=== PATIENT | male | born 1945 | race Caucasian/White ===

== ENCOUNTER 2022-07-22 10:14 | Inpatient (IN) | payer MEDICARE ==
[~2022-07-22] VITALS: Ht 182.8 cm; Wt 56.2 kg
[2022-07-22] MEDS ORDERED: RT-ALBUTEROL SULF 2.5 MG/3 ML PRE-MIX VIAL INH STA (10:25)
[2022-07-22] MEDS ORDERED: NITRO DRIP 25000 MCG/D5W 250 ML IV STA (10:25)
--- NOTE | 2022-07-22 10:35 | Diagnostic Imaging Report ---
INDICATION: Shortness of breath. Frontal chest obtained at 10:28 a.m. FINDINGS: Heart is mildly enlarged. There is central vascular congestion with diffuse interstitial edema and patchy alveolar infiltrates, right greater than left. There appears to be a minimal trace of pleural fluid on both sides. There is no pneumothorax. IMPRESSION: Cardiomegaly and central vascular congestion with interstitial edema compatible with CHF, with some patchy bibasilar alveolar infiltrates right greater than left, superimposed pneumonia not excluded. There is a trace of pleural fluid on both sides. Dictated by: Dictated on workstation # [id number]
[2022-07-22 10:45] LABS: BASOPHILS % (AUTO) 0 % (0-10); EOSINOPHILS % (AUTO) 0 % (0-10); HEMATOCRIT 46 % (40-54); HEMOGLOBIN 14.5 g/dL (13.3-17.7); LYMPHOCYTES # (AUTO) 2.6 10^3/uL (1.0-4.0); LYMPHOCYTES % (AUTO) 22 % (12-44); MEAN CORPUSCULAR HEMOGLOBIN 32 pg (25-34); MEAN CORPUSCULAR HGB CONC 32 g/dL (32-36); MEAN CORPUSCULAR VOLUME 100 fL (80-99); MEAN PLATELET VOLUME 10.5 fL (9.0-12.2); MONOCYTES # (AUTO) 0.7 10^3/uL (0.0-1.0); MONOCYTES % (AUTO) 6 % (0-12); NEUTROPHILS # (AUTO) 8.4 10^3/uL (1.8-7.8); NEUTROPHILS % (AUTO) 71 % (42-75); PLATELET COUNT 174 10^3/uL (130-400); WHITE BLOOD COUNT 11.7 10^3/uL (4.3-11.0)
[2022-07-22 10:46] LABS: ABG BASE EXCESS -2.7 MMOL/L (-2.5-2.5); ABG OXYGEN SATURATION 100 % (94-100); ABG PO2 405 MMHG (79-93); ABG TCO2 29.7 MMOL/L (21.0-31.0)
--- NOTE | 2022-07-22 10:46 | ED Dyspnea ---
General Stated Complaint: SOB Source of Information: Patient, EMS Exam Limitations: Other (clinical condition of severe dyspnea) History of Present Illness Date Seen by Provider: Jul 22, 2022 Time Seen by Provider: 10:14 Initial Comments 76-year-old male presenting with shortness of breath. He has been having difficulty breathing for several days. EMS was activated this morning because he was having increased trouble breathing. He had denied any fever or chills. He was only able to speak and 1-2 word sentences. He also was very hypertensive when EMS picked him up. His initial blood pressure was 220/150. He denies any allergies to medicines. He admits to having COPD. He states he does not want to be intubated. Severity: Severe Associated Symptoms: Chest Pain, Cough, Edema, Fever, Pain, Weakness, Wheezing Allergies and Home Medications Allergies Coded Allergies: No Known Drug Allergies (Unverified , 07/22/22) Patient Home Medication List Home Medication List Reviewed: Yes Review of Systems Review of Systems Constitutional: see HPI Respiratory: cough, short of breath Cardiovascular: No chest pain Unable to obtain full ROS due to patient's condition and severe respiratory distress Past Hiwzdpy-Pnokzs-Uqwihd Hx Past Medical History Surgery/Hospitalization HX: COPD Physical Exam Vital Signs Vital Signs - First Documented 07/22/22 10:20 Temp 35.7 Pulse 112 Resp 24 B/P (MAP) 192/130 (150) Pulse Ox 100 O2 Delivery NIV CPAP Capillary Refill : Height, Weight, BMI Height: '" Weight: lbs. oz. kg; BMI Method: General Appearance: Anxious, Chronically ill, Moderate Distress (working hard to breath) HEENT: PERRL/EOMI, Moist Mucous Membranes Neck: Non Tender, Supple Respiratory: Chest Non Tender, Accessory Muscle Use, Decreased Breath Sounds (especially in the bases), Respiratory Distress; No Stridor Cardiovascular: Normal Peripheral Pulses, Tachycardia Gastrointestinal: Normal Bowel Sounds, No Pulsatile Mass, Non Tender, Soft Rectal: Deferred Extremity: Normal Capillary Refill, Normal Inspection, No Pedal Edema Neurologic/Psychiatric: Alert Skin: Warm/Dry, Pallor Focused Exam Lactate Level 07/22/22 10:30: Lactic Acid Level 3.14*H Lactic Acid Level Laboratory Tests Test 07/22/22 10:30 Lactic Acid Level 3.14 MMOL/L (0.50-2.00) *H Progress/Results/Core Measures Results/Orders Lab Results Laboratory Tests Test 07/22/22 10:23 07/22/22 10:30 07/22/22 10:36 07/22/22 10:49 Range/Units Blood Gas Puncture Site L RADIAL Blood Gas Patient Temperature 35.7 Arterial Blood pH 7.17 *L 7.37-7.43 Arterial Blood Partial Pressure CO2 75 *H 35-45 MMHG Arterial Blood Partial Pressure O2 405 H 79-93 MMHG Arterial Blood HCO3 27 23-27 MMOL/L Arterial Blood Total CO2 29.7 21.0-31.0 MMOL/L Arterial Blood Oxygen Saturation 100 94-100 % Arterial Blood Base Excess -2.7 L -2.5-2.5 MMOL/L Nicho Test NA Blood Gas Ventilator Setting NO Blood Gas Inspired Oxygen 100% BIPAP White Blood Count 11.7 H 4.3-11.0 10^3/uL Red Blood Count 4.59 4.30-5.52 10^6/uL Hemoglobin 14.5 13.3-17.7 g/dL Hematocrit 46 40-54 % Mean Corpuscular Volume 100 H 80-99 fL Mean Corpuscular Hemoglobin 32 25-34 pg Mean Corpuscular Hemoglobin Concent 32 32-36 g/dL Red Cell Distribution Width 14.6 H 10.0-14.5 % Platelet Count 174 130-400 10^3/uL Mean Platelet Volume 10.5 9.0-12.2 fL Immature Granulocyte % (Auto) 1 % Neutrophils (%) (Auto) 71 42-75 % Lymphocytes (%) (Auto) 22 12-44 % Monocytes (%) (Auto) 6 0-12 % Eosinophils (%) (Auto) 0 0-10 % Basophils (%) (Auto) 0 0-10 % Neutrophils # (Auto) 8.4 H 1.8-7.8 10^3/uL Lymphocytes # (Auto) 2.6 1.0-4.0 10^3/uL Monocytes # (Auto) 0.7 0.0-1.0 10^3/uL Eosinophils # (Auto) 0.0 0.0-0.3 10^3/uL Basophils # (Auto) 0.0 0.0-0.1 10^3/uL Immature Granulocyte # (Auto) 0.1 0.0-0.1 10^3/uL Sodium Level 137 135-145 MMOL/L Potassium Level 4.8 3.6-5.0 MMOL/L Chloride Level 102 98-107 MMOL/L Carbon Dioxide Level 25 21-32 MMOL/L Anion Gap 10 5-14 MMOL/L Blood Urea Nitrogen 19 H 7-18 MG/DL Creatinine 1.58 H 0.60-1.30 MG/DL Estimat Glomerular Filtration Rate 45 BUN/Creatinine Ratio 12 Glucose Level 196 H 70-105 MG/DL Lactic Acid Level 3.14 *H 0.50-2.00 MMOL/L Calcium Level 8.5 8.5-10.1 MG/DL Corrected Calcium 8.7 8.5-10.1 MG/DL Magnesium Level 2.3 1.6-2.4 MG/DL Total Bilirubin 0.5 0.1-1.0 MG/DL Aspartate Amino Transf (AST/SGOT) 53 H 5-34 U/L Alanine Aminotransferase (ALT/SGPT) 30 0-55 U/L Alkaline Phosphatase 253 H 40-136 U/L Troponin I < 0.30 <0.30 NG/ML C-Reactive Protein 0.87 H <0.50 MG/DL Pro-B-Type Natriuretic Peptide 40379.0 H <450.0 PG/ML Total Protein 6.5 6.4-8.2 GM/DL Albumin 3.7 3.2-4.5 GM/DL Influenza Type A (RT-PCR) Not Detected Not Detecte Influenza Type B (RT-PCR) Not Detected Not Detecte SARS-CoV-2 RNA (RT-PCR) Not Detected Not Detecte Urine Color YELLOW Urine Clarity CLEAR Urine pH 6.0 5-9 Urine Specific [place] 1.020 1.016-1.022 Urine Protein NEGATIVE NEGATIVE Urine Glucose (UA) NEGATIVE NEGATIVE Urine Ketones NEGATIVE NEGATIVE Urine Nitrite NEGATIVE NEGATIVE Urine Bilirubin NEGATIVE NEGATIVE Urine Urobilinogen 0.2 < = 1.0 MG/DL Urine Leukocyte Esterase NEGATIVE NEGATIVE Urine RBC (Auto) NEGATIVE NEGATIVE Urine RBC NONE /HPF Urine WBC RARE /HPF Urine Squamous Epithelial Cells 5-10 /HPF Urine Crystals NONE /LPF Urine Bacteria NEGATIVE /HPF Urine Casts NONE /LPF Urine Mucus NEGATIVE /LPF Urine Culture Indicated NO My Orders Orders - NICHOLE DUMONT MD Cbc With Automated Diff (07/22/22 10:22) Comprehensive Metabolic Panel (07/22/22 10:22) Blood Culture (07/22/22 10:22) Chest 1 View Ap/Pa Only (07/22/22 10:22) Magnesium (07/22/22 10:22) Ekg Tracing (07/22/22 10:22) O2 (07/22/22 10:22) Ed Iv/Invasive Line Start (07/22/22 10:22) Sputum Culture (07/22/22 10:22) Monitor-Rhythm Ecg Trace Only (07/22/22 10:22) Crp Fs (07/22/22 10:22) Lactic Acid Analyzer (07/22/22 10:22) Arterial Blood Gas (07/22/22 10:23) Troponin I Fs (07/22/22 10:23) Probnp Fs (07/22/22 10:23) Covid 19 Inhouse Test (07/22/22 10:23) Influenza A And B By Pcr (07/22/22 10:23) Isolation Central Supply Req (07/22/22 10:23) Albuterol Pre-Mix Nebs (Rt) (Proventil (07/22/22 10:25) Svn Small Volume Nebulizer (07/22/22 10:25) Nitro Drip 09805 Mcg/D5w (Nitroglycerin (07/22/22 10:25) Furosemide Injection (Lasix Injection) (07/22/22 10:53) Ua Culture If Indicated (07/22/22 10:54) Ricketts Cath (07/22/22 10:54) End Tidal Co2 (07/22/22 11:11) Vital Signs/I&O 07/22/22 07/22/22 10:20 10:45 Temp 35.7 Pulse 112 100 Resp 24 B/P (MAP) 192/130 (150) 175/119 Pulse Ox 100 O2 Delivery NIV CPAP Progress Progress Note #1: Progress Note obtain labs, ABG, ECG, CXR, Cardiac Enzymes, Covid swab, Influenza Swab. Repeat albuterol treatment to see if it helps his breathing. Continue with CPAP from EMS. He was given Solumedrol 125 mg IV in addition to a Duoneb and Albuterol treatment prior to arrival. Will replace the ntg paste with nitroglycerin drip. Differential diagnosis includes acute heart failure, COPD exacerbation, pneumonia, COVID, acute myocardial infarction Progress Note #2: Time: 10:47 Progress Note 1047 lab called to say his blood gas showed a pH of 7.17, PCO2 of 75, PO2 of 405. The rest of the results will be put in the computer. 1101 Lactic acid 3.14 which is likely due to hyperventilation and respiratory distress rather than infection. Chest xray shows cardiomegaly with pulmonary edema and signs for CHF. Added Lasix 80 mg IV x 1 to try and help patient diurese and see if it helps his breathing. 1107 clarified with patient that he is DNR/DNI. He follows with Dr. Osborne and uses [facility] for prescriptions. He continues to deny heart problems or heart failure in the past. He has had HTN and takes meds for that. Oxygen decreased from 100% to 60 % with his BiPAP since his pO2 was 405 on ABG. Progress Note #3: Time: 11:18 Progress Note Labs show mild elevation white blood cell count to 11.7 on CBC. Chemistry has elevated BUN 19 and creatinine 1.58. Glucose is elevated to 196 but patient has been having respiratory distress and did get Solu-Medrol 125 mg IV. Troponin is negative at less than 0.3. proBNP is elevated to 34,046. Page sent to Dr. Gonzalez with [facility] about trying to admit the patient to the ICU. 1133 d/w Dr. Gonzalez about patient and will admit to ICU. Continue with nitroglycerin drip for blood pressure and to help with diuresis. Monitor urine output with ricketts catheter that was placed here in ED. He is improved from when he arrived in the ED. Will titrate oxygen down to 40% on his BiPap as he is still at 100% on 60%. Initial ECG Impression Date: Jul 22, 2022 Initial ECG Impression Time: 10:18 Initial ECG Rate: 110 Initial ECG Rhythm: S.Tach Initial ECG Comparisson: No Previous ECG Available Comment Sinus tachycardia with a heart rate of 110 bpm. NH interval [address] elevation. There is a nonspecific intraventricular conduction delay. Q waves present in leads II, 3, aVF, V2 through V6. QT interval 348 ms with a QTc interval 413 ms. There is no prior tracing immediately available for [facility]. Diagnostic Imaging Diagonstic Imaging: Xray Plain Films/CT/US/NM/MRI: chest Comments NAME: JUDIT SMALLWOOD MED REC#: [id number] PT STATUS: REG ER : 1945 PHYSICIAN: NICHOLE DUMONT MD ADMIT DATE: 07/22/22/ER FS Draft Date of Exam:07/22/22 CHEST 1 VIEW AP/PA ONLY INDICATION: Shortness of breath. Frontal chest obtained at 10:28 a.m. FINDINGS: Heart is mildly enlarged. There is central vascular congestion with diffuse interstitial edema and patchy alveolar infiltrates, right greater than left. There appears to be a minimal trace of pleural fluid on both sides. There is no pneumothorax. IMPRESSION: Cardiomegaly and central vascular congestion with interstitial edema compatible with CHF, with some patchy bibasilar alveolar infiltrates right greater than left, superimposed pneumonia not excluded. There is a trace of pleural fluid on both sides. Dictated on workstation # [id number] Dict: 07/22/22 1033 Trans: 07/22/22 1035 [id number] Interpreted by: WICHO NG MD Electronically signed by: Reviewed: Reviewed by Ak Critical Care Note Critical Care Total Time (minutes) 60 minutes Progress 60 minutes of critical care time was spent in direct care of the patient. This excludes separately billable procedures. Time was spent obtaining history from patient and EMS, ordering tests and reviewing results, ordering interventions and reviewing response, discussion with consultants, documentation in the chart. Patient was at risk of respiratory failure with his respiratory distress and required my constant immediate care. Departure Communication (Admissions) Time/Spoke to Admitting Phy: 11:[address] Gonzalez and she accepted patient for ICU admission. We will continue with nitroglycerin drip and BiPAP. Impression Primary Impression: Acute exacerbation of chronic obstructive pulmonary disease (COPD) Additional Impressions: Hypertensive urgency Congestive heart failure Qualified Codes: I50.9 - Heart failure, unspecified Respiratory failure with hypercapnia Qualified Codes: J96.22 - Acute and chronic respiratory failure with hypercapnia Disposition: 30 STILL A PATIENT Condition: Critical Admissions Decision to Admit Reason: Admit from ER (General) Decision to Admit/Date: Jul 22, 2022 Time/Decision to Admit Time: 11:33 Departure-Patient Inst. Referrals: NO,LOCAL PHYSICIAN (PCP/Family) Primary Care Physician NICHOLE DUMONT MD Jul 22, 2022 10:46
[2022-07-22 10:47] LABS: INSPIRED O2 100% BIPAP; PATIENT TEMP 35.7; VENTILATOR NO
[2022-07-22 10:48] LABS: ABG PCO2 75 MMHG (35-45)
[2022-07-22 10:49] LABS: ABG PH 7.17 (7.37-7.43)
[2022-07-22] MEDS ORDERED: FUROSEMIDE 40 MG/4 ML INJ (LASIX) IVP STA (10:53)
[2022-07-22 11:00] LABS: BILIRUBIN,URINE NEGATIVE (NEGATIVE); COLOR,URINE YELLOW; GLUCOSE, URINE (UA) NEGATIVE (NEGATIVE); KETONES,URINE NEGATIVE (NEGATIVE); LEUKOCYTE ESTERASE ,URINE NEGATIVE (NEGATIVE); NITRITE,URINE NEGATIVE (NEGATIVE); PROTEIN,URINE NEGATIVE (NEGATIVE)
[2022-07-22 11:09] LABS: BACTERIA,URINE NEGATIVE /HPF; WBC,URINE RARE /HPF
[2022-07-22 11:10] LABS: CLARITY,URINE CLEAR
[2022-07-22 11:14] LABS: CARBON DIOXIDE 25 MMOL/L (21-32); CHLORIDE 102 MMOL/L (98-107); POTASSIUM 4.8 MMOL/L (3.6-5.0); SODIUM 137 MMOL/L (135-145)
[2022-07-22 11:15] LABS: ALANINE AMINOTRANSFERASE 30 U/L (0-55); ALBUMIN 3.7 GM/DL (3.2-4.5); ALKALINE PHOSPHATASE 253 U/L (40-136); BILIRUBIN,TOTAL 0.5 MG/DL (0.1-1.0); BUN/CREATININE RATIO 12; CALCIUM 8.5 MG/DL (8.5-10.1); CREATININE SERUM 1.58 MG/DL (0.60-1.30); GFR ESTIMATED 45; GLUCOSE 196 MG/DL (70-105); MAGNESIUM 2.3 MG/DL (1.6-2.4); TOTAL PROTEIN 6.5 GM/DL (6.4-8.2)
[2022-07-22] MEDS ORDERED: NITRO DRIP 25000 MCG/D5W 250 ML IV SCH (13:15)
[2022-07-22] MEDS ORDERED: CATHETER FLUSH 10 ML SYR IVP PRN (13:15)
[2022-07-22 13:38] VITALS: BP 192/130
[2022-07-22] MEDS ORDERED: RT-ALBUTEROL/IPRATROPIUM 3 ML (DUONEB) VIAL INH PRN (14:00)
--- NOTE | 2022-07-22 14:13 | Tele-ICU Consult ---
History of Present Illness History of Present Illness Date Seen by Provider: Jul 22, 2022 Time Seen by Provider: 14:13 Date of Admission (Tele-ICU Physician , consultation) Available chart/ vitals / labs / Images reviewed H&P is from ER notes Patient's information available about PMH, Shx, Fhx allergy reviewed inEMR. ROS as per chart and RN report Now in ICU, hemodynamically stable Video assessment done using teleICU camera, rest of exam as per RN Discussed with RN. Consultants: Hospital course: A/P Acute resp failure with hypercapneic and hypoxic - most likely due to pulm edema +/- AECOPD - was placed on NIPPV in ER - now ion o2 after transfer - AAO, answering questions - will follow with ABG - check ddimer -diuresis , BP control , br dilators HTN urgency/ emergency ( with acute end-organ damage - pulm edema - on presentation BP 220/150 ( MAP > 150 - BP already decreased 10- 20% in ER , -will plan further 10% in next 24H ( next few hours target BP of <180/<120 mmHg , by tomorrow decrease 25% from presentation goal and <160/<110 mmHg - cont NTG gtt Hypoxia - with CHF - ? br spam - as per bedside team exam Leukocytosis - can not r/o infection given CXR and infiltrates - sputum cx to obtain , check PCT - ( neg covid and flu ) VAHID/ ? CKD - follow Elevated lactate does not correlates with sepsis - will follow with improving oxygentaion and BP - no IVF ( lasix 80 given ) as per ER notes - He states he does not want to be intubated., DNR/DNI. Lines : , (Central Line Necessity Reviewed) Ramachandran: OG: Nutrition: Analgesia: Anxiety/ delirium VTE Prophylaxis: gustavo 30 Stress Ulcer Prophylaxis: Plans in collaboration with bedside consultants and IM MDs. Discussed with RN to reach out if any questions or concerns A total of 33 minutes of critical care time was devoted to this patient today, required to treat and/or prevent further deterioration of critical care condition ( as above ) . Allergies and Home Medications Allergies Coded Allergies: No Known Drug Allergies (Unverified , 07/22/22) Past Medical/Social/Family Hx Patient Social History Tobacco Use?: No Substance use?: No Alcohol Use?: No Pt stated abuse/neglect: No Current Status Advance Directives: No Communicates: Verbally Primary Language: Estonian Preferred Spoken Language: Estonian Is interpretation needed?: No Sensory deficits: Hearing impairment Review of Systems Constitutional: see HPI Focused Exam Lactate Level 07/22/22 10:30: Lactic Acid Level 3.14*H Height, Weight, BMI Height: '" Weight: lbs. oz. kg; 20.34 BMI Method: Lactic Acid Level Laboratory Tests Test 07/22/22 10:30 Lactic Acid Level 3.14 MMOL/L (0.50-2.00) *H Exam Exam Patient acknowledged, consented, and participated in this virtual visit which was conducted using real time audio/video Vital Signs Date Time Temp Pulse Resp B/P (MAP) Pulse Ox O2 Delivery O2 Flow Rate FiO2 07/22/22 13:38 35.7 112 100 100 07/22/22 13:25 81 07/22/22 12:20 92 19 177/109 100 Room Air 07/22/22 10:45 100 175/119 07/22/22 10:25 100 NIV Bilevel 100 07/22/22 10:20 35.7 112 24 192/130 (150) 100 NIV CPAP Height & Weight Height: '" Weight: lbs. oz. kg; 20.34 BMI Method: General Appearance: No Apparent Distress, Anxious, Chronically ill, Moderate Distress (working hard to breath) HEENT: PERRL/EOMI, Moist Mucous Membranes Neck: Non Tender, Supple Respiratory: Chest Non Tender, Accessory Muscle Use, Decreased Breath Sounds (especially in the bases), Respiratory Distress; No Stridor Cardiovascular: Normal Peripheral Pulses, Tachycardia Capillary Refill: Less Than 3 Seconds Extremity: Normal Capillary Refill, Normal Inspection, No Pedal Edema Neurologic/Psychiatric: Alert Skin: Warm/Dry, Pallor Results Lab Laboratory Tests 07/22/22 10:30 Assessment/Plan Assessment/Plan 1 KAY CHAVIRA MD Jul 22, 2022 14:13
[2022-07-22 14:35] LABS: POTASSIUM 4.5 MMOL/L (3.6-5.0)
[2022-07-22 14:36] LABS: CALCIUM 8.4 MG/DL (8.5-10.1)
[2022-07-22 14:41] LABS: CREATININE SERUM 1.79 MG/DL (0.60-1.30)
[2022-07-22 14:50] LABS: FIBRIN DEGRADATION PRODUCTS 5.15 UG/ML (0.00-0.49)
[2022-07-22] MEDS: CATHETER FLUSH 10 ML SYR IVP SCH ×2 (15:00→22:00)
[2022-07-22 15:11] LABS: ABG BASE EXCESS 2.6 MMOL/L (-2.5-2.5); ABG OXYGEN SATURATION 91 % (94-100); ABG PCO2 49 MMHG (35-45); ABG PH 7.37 (7.37-7.43); ABG PO2 57 MMHG (79-93)
[2022-07-22 15:14] LABS: ALLENS TEST POSITIVE; PATIENT TEMP 36.8; VENTILATOR NO
[2022-07-22] MEDS: ENOXAPARIN 40 MG/0.4 ML (LOVENOX) SYR SC SCH ×2 (16:49→17:00)
[2022-07-22] MEDS ORDERED: RT-ALBUTEROL/IPRATROPIUM 3 ML (DUONEB) VIAL INH SCH (18:00)
[2022-07-22] MEDS: RT-ALBUTEROL/IPRATROPIUM 3 ML (DUONEB) VIAL INH SCH ×2 (19:09→22:52)
--- NOTE | 2022-07-22 21:03 | History & Physical ---
VIRIDIANA ORTEGA 07/22/223: HPI History of Present Illness: Patient admitted for respiratory failure with hypercapnia and hypertensive emergency after arriving to the ER around 10:30am with severe shortness of musa th. Since initiation of furosemide around 11:00 am, he is breathing significantly easier and is in much less distress. He reports that he could "barely talk" on arrival at the ER due to difficultly breathing, and now can sustain a full conversation. He denies chest pain, headache, dizziness, sensation abnormalities, GI disturbances, and changes in vision and hearing. He is pleasant natured and engaged, but does have trouble remembering today's events and certain longer term information (family medical history, for example). Attending Physician Cristhian Osborne MD PCP Admitting Physician: Solo Jean-Baptiste MD Attending Physician: Solo Jean-Baptiste MD Consult Date of Admission Jul 22, 2022 at 12:52 Home Medications Home Medications Reviewed patient Home Medication Reconciliation performed by pharmacy medication reconciliations it telecom technician and/or nursing. Patients Allergies have been reviewed. Allergies Coded Allergies: No Known Drug Allergies (Unverified , 07/22/22) AEV-Hvhfvu-Yucyyd Hx Patient Social History Smoking Status: Former Smoker Alcohol Use?: No Have you traveled recently?: No Reviewed Test Results Reviewed Test Results Radiology CXR showed done at 11:00 am at the ER showed cardiomegaly, central vascular congestion, and diffuse interstitial with patchy alveolar infiltrates. Negative for pneumonia and pneumothorax. Physical Exam-([facility]) Physical Exam Vital Signs VS - Last 72 Hours, by Label 07/22/22 07/22/22 07/22/22 07/22/22 10:20 10:25 10:45 12:20 Temp 35.7 Pulse 112 100 92 Resp 24 19 B/P (MAP) 192/130 (150) 175/119 177/109 Pulse Ox 100 100 100 O2 Delivery NIV CPAP NIV Bilevel Room Air FiO2 100 07/22/22 07/22/22 07/22/22 07/22/22 12:56 13:00 13:15 13:25 Pulse 85 85 81 Resp 28 B/P (MAP) 156/104 (121) 159/109 (126) Pulse Ox 94 93 O2 Delivery Nasal Cannula Room Air Room Air O2 Flow Rate 3.00 07/22/22 07/22/22 07/22/22 07/22/22 13:30 13:38 13:45 14:00 Temp 35.7 Pulse 82 112 78 79 Resp 17 15 29 B/P (MAP) 163/101 (121) 150/92 (111) 157/98 (117) Pulse Ox 88 100 89 91 O2 Delivery Room Air Room Air Nasal Cannula O2 Flow Rate 2.00 FiO2 100 07/22/22 07/22/22 07/22/22 07/22/22 14:15 14:30 14:45 15:00 Pulse 80 76 77 94 Resp 29 16 15 10 B/P (MAP) 154/95 (114) 142/81 (101) 154/97 (116) Pulse Ox 90 92 92 90 O2 Delivery Nasal Cannula Nasal Cannula Nasal Cannula Nasal Cannula O2 Flow Rate 2.00 2.00 2.00 2.00 07/22/22 07/22/22 07/22/22 07/22/22 16:00 17:15 18:00 19:00 Pulse 89 85 90 80 Resp 16 17 28 B/P (MAP) 162/94 (116) 128/89 (102) 137/105 (116) Pulse Ox 95 96 91 O2 Delivery Nasal Cannula Nasal Cannula Nasal Cannula O2 Flow Rate 2.00 2.00 2.00 07/22/22 19:09 Pulse Ox 96 O2 Delivery Nasal Cannula O2 Flow Rate 3.00 Capillary Refill : Less Than 3 Seconds Assessment/Plan Assessment/Plan Reason for Inpatient Admission: Admitted for respiratory failure with hypercapnia and hypertensive urgency. Assessment & Plan 1. Respiratory failure with hypercapnia NIPPV at done at ER on presentation. At this time, patient's pCO2 was 75 and lactic acidosis was 3.14. As of 3:00 pm, have both declined to 49 and 1.59, respectively. Respiratory decline a consequence of pulmonary edema related to terminal carman CHF. 2. Acute on Chronic Heart Failure CXR done at the ER showed diffuse pulmonary edema, after which an 80 mg injection of Furosemide was given at 11:00 am. The patient takes metropolol and clonidine regularly. 3. Acute COPD Exacerbation O2 was 91 on admission as has remained above 90 since. Patient has 65 year smoking history with cessation in 12/2021. He uses albuterol sulfate as needed. 4. Hypertensive emergency On admission to the ER, the patient's blood 220/150. While in the ER, it declined by 10-20%, and continued to gradually drop throughout the day. As of 6:00 pm is blood pressure 137/ 105. He takes metoprolol and clonidine regularly. 5. Pulmonary Edema 6. Cardiomegaly 7. Patchy Atelectasis 8. Stage 3b CKD WBC elevated are 11.7. Cultures are negative and CXR was negative for pnemonia. Plan to discharge patient tomorrow if he remains stable. Will order an echo cardiogram at this time to further evaluate the findings on the chest X-ray. Copy Copies To 1: SCARLETT,CRISTHIAN JEAN-BAPTISTE,SOLO Harvey MD 07/22/22 2306: HPI History of Present Illness: Source: patient Exam Limitations: no limitations Date seen by provider: Jul 22, 2022 Time Seen by Provider: 17:15 Home Medications Allergies Coded Allergies: No Known Drug Allergies (Unverified , 07/22/22) USE-Eamvjn-Zugiub Hx Patient Social History Living Status: Lives in home independently Past Medical History COPD HTN Tobacco abuse Review of Systems ([facility]) Constitutional: No chills, No fever; malaise, weakness EENTM: no symptoms reported; No mouth pain, No nose congestion, No nose pain, No throat pain Respiratory: cough, dyspnea on exertion, short of breath Cardiovascular: no symptoms reported; No chest pain, No palpitations Gastrointestinal: no symptoms reported; No abdominal pain, No constipation, No diarrhea, No nausea, No vomiting Genitourinary: no symptoms reported; No dysuria, No frequency, No hematuria Musculoskeletal: no symptoms reported; No back pain, No joint pain, No muscle pain Skin: lesions Psychiatric/Neurological: Denies Anxiety, Denies Headache; Weakness Reviewed Test Results Reviewed Test Results Lab Laboratory Tests Test 07/22/22 10:23 07/22/22 10:30 07/22/22 10:36 07/22/22 10:49 Range/Units Blood Gas Puncture Site L RADIAL Blood Gas Patient Temperature 35.7 Arterial Blood pH 7.17 *L 7.37-7.43 Arterial Blood Partial Pressure CO2 75 *H 35-45 MMHG Arterial Blood Partial Pressure O2 405 H 79-93 MMHG Arterial Blood HCO3 27 23-27 MMOL/L Arterial Blood Total CO2 29.7 21.0-31.0 MMOL/L Arterial Blood Oxygen Saturation 100 94-100 % Arterial Blood Base Excess -2.7 L -2.5-2.5 MMOL/L Nicho Test NA Blood Gas Ventilator Setting NO Blood Gas Inspired Oxygen 100% BIPAP White Blood Count 11.7 H 4.3-11.0 10^3/uL Red Blood Count 4.59 4.30-5.52 10^6/uL Hemoglobin 14.5 13.3-17.7 g/dL Hematocrit 46 40-54 % Mean Corpuscular Volume 100 H 80-99 fL Mean Corpuscular Hemoglobin 32 25-34 pg Mean Corpuscular Hemoglobin Concent 32 32-36 g/dL Red Cell Distribution Width 14.6 H 10.0-14.5 % Platelet Count 174 130-400 10^3/uL Mean Platelet Volume 10.5 9.0-12.2 fL Immature Granulocyte % (Auto) 1 % Neutrophils (%) (Auto) 71 42-75 % Lymphocytes (%) (Auto) 22 12-44 % Monocytes (%) (Auto) 6 0-12 % Eosinophils (%) (Auto) 0 0-10 % Basophils (%) (Auto) 0 0-10 % Neutrophils # (Auto) 8.4 H 1.8-7.8 10^3/uL Lymphocytes # (Auto) 2.6 1.0-4.0 10^3/uL Monocytes # (Auto) 0.7 0.0-1.0 10^3/uL Eosinophils # (Auto) 0.0 0.0-0.3 10^3/uL Basophils # (Auto) 0.0 0.0-0.1 10^3/uL Immature Granulocyte # (Auto) 0.1 0.0-0.1 10^3/uL Sodium Level 137 135-145 MMOL/L Potassium Level 4.8 3.6-5.0 MMOL/L Chloride Level 102 98-107 MMOL/L Carbon Dioxide Level 25 21-32 MMOL/L Anion Gap 10 5-14 MMOL/L Blood Urea Nitrogen 19 H 7-18 MG/DL Creatinine 1.58 H 0.60-1.30 MG/DL Estimat Glomerular Filtration Rate 45 BUN/Creatinine Ratio 12 Glucose Level 196 H 70-105 MG/DL Lactic Acid Level 3.14 *H 0.50-2.00 MMOL/L Calcium Level 8.5 8.5-10.1 MG/DL Corrected Calcium 8.7 8.5-10.1 MG/DL Magnesium Level 2.3 1.6-2.4 MG/DL Total Bilirubin 0.5 0.1-1.0 MG/DL Aspartate Amino Transf (AST/SGOT) 53 H 5-34 U/L Alanine Aminotransferase (ALT/SGPT) 30 0-55 U/L Alkaline Phosphatase 253 H 40-136 U/L Troponin I < 0.30 <0.30 NG/ML C-Reactive Protein 0.87 H <0.50 MG/DL Pro-B-Type Natriuretic Peptide 10170.0 H <450.0 PG/ML Total Protein 6.5 6.4-8.2 GM/DL Albumin 3.7 3.2-4.5 GM/DL Influenza Type A (RT-PCR) Not Detected Not Detecte Influenza Type B (RT-PCR) Not Detected Not Detecte SARS-CoV-2 RNA (RT-PCR) Not Detected Not Detecte Urine Color YELLOW Urine Clarity CLEAR Urine pH 6.0 5-9 Urine Specific [place] 1.020 1.016-1.022 Urine Protein NEGATIVE NEGATIVE Urine Glucose (UA) NEGATIVE NEGATIVE Urine Ketones NEGATIVE NEGATIVE Urine Nitrite NEGATIVE NEGATIVE Urine Bilirubin NEGATIVE NEGATIVE Urine Urobilinogen 0.2 < = 1.0 MG/DL Urine Leukocyte Esterase NEGATIVE NEGATIVE Urine RBC (Auto) NEGATIVE NEGATIVE Urine RBC NONE /HPF Urine WBC RARE /HPF Urine Squamous Epithelial Cells 5-10 /HPF Urine Crystals NONE /LPF Urine Bacteria NEGATIVE /HPF Urine Casts NONE /LPF Urine Mucus NEGATIVE /LPF Urine Culture Indicated NO Test 07/22/22 13:55 07/22/22 15:00 Range/Units Prothrombin Time 14.0 12.2-14.7 SEC INR Comment 1.0 0.8-1.4 D-Dimer 5.15 H 0.00-0.49 UG/ML Sodium Level 141 135-145 MMOL/L Potassium Level 4.5 3.6-5.0 MMOL/L Chloride Level 104 98-107 MMOL/L Carbon Dioxide Level 25 21-32 MMOL/L Anion Gap 12 5-14 MMOL/L Blood Urea Nitrogen 20 H 7-18 MG/DL Creatinine 1.79 H 0.60-1.30 MG/DL Estimat Glomerular Filtration Rate 39 BUN/Creatinine Ratio 11 Glucose Level 130 H 70-105 MG/DL Lactic Acid Level 1.59 0.50-2.00 MMOL/L Calcium Level 8.4 L 8.5-10.1 MG/DL Procalcitonin 0.18 H <0.10 NG/ML Blood Gas Puncture Site RIGHT WRIST Blood Gas Patient Temperature 36.8 Arterial Blood pH 7.37 7.37-7.43 Arterial Blood Partial Pressure CO2 49 H 35-45 MMHG Arterial Blood Partial Pressure O2 57 L 79-93 MMHG Arterial Blood HCO3 28 H 23-27 MMOL/L Arterial Blood Total CO2 29.0 21.0-31.0 MMOL/L Arterial Blood Oxygen Saturation 91 L 94-100 % Arterial Blood Base Excess 2.6 H -2.5-2.5 MMOL/L Nicho Test POSITIVE Blood Gas Ventilator Setting NO Blood Gas Inspired Oxygen UNK Physical Exam-([facility]) Physical Exam General Appearance: WD/WN, mild distress (with exertion) HEENT: PERRL/EOMI Respiratory: no respiratory distress, rhonchi, wheezing, expiration, inspiration Cardiovascular: normal peripheral pulses, regular rate, rhythm, no edema, no murmur Gastrointestinal: normal bowel sounds, non tender, soft Back: no CVA tenderness Extremities: normal range of motion, non-tender, no pedal edema, no calf tenderness, other (brusing and abrasions) Neurologic/Psychiatric: insurance healthcare representative II-XII nml as tested, alert, oriented x 3 Skin: ecchymosis Lymphatic: no adenopathy Assessment/Plan Assessment/Plan Admission Status: Inpatient Order (span 2 midnights) Reason for Inpatient Admission: respiratory failure with high risk of decompensation Copy Copies To 1: CRISTHIAN OSBORNE MD Supervisory-Addendum Brief Verification & Attestation Participated in pt care: history, physical Personally performed: exam, history Care discussed with: Medical Student Procedures: n/a Verification and Attestation of Medical Student E/M Service A medical student performed and documented this service in my presence. I reviewed and verified all information documented by the medical student and made modifications to such information, when appropriate. I personally performed the physical exam and medical decision making. Solo Jean-Baptiste, Jul 22, 2022,23:01 Acute on Chronic Respiratory Failure with hypoxia and hypercarbia Pulmonary Edema COPD Exacerbation - Patient started on bipap, MAT protocol and breathing treatments, IV steroids - He was able to titrate to NC shortly after arrival to hosp - Possible new home oxygen need at discharge, will monitor Hypertensive Emergency - Nitro drip started in ER - Will restart home meds Acute Heart Failure Elevated BNP Pulmonary edema - Cardiology consulted for new diagnosis of CHF - Echo ordered and pending - S/p Lasix 80 mg in ER, schedule 40 mg Lasix in AM Acute Renal Failure - Unknown baseline, monitor closely due to diuresis Tobacco Dependence - Quit in April, continue to focus on cessation Elevated D-Dimer - Consider CTA DVT Px: VIRIDIANA Holbrook Jul 22, 2022 21:03 SOLO JEAN-BAPTISTE MD Jul 22, 2022 23:06
[2022-07-23] MEDS ORDERED: HYDROcodone/APAP 5 MG/325 MG (LORTAB) TAB ONE (02:27)
[2022-07-23] MEDS ORDERED: HYDROcodone/APAP 5 MG/325 MG (LORTAB) TAB PO ONE ×2 (02:30→02:45)
--- NOTE | 2022-07-23 02:35 | Progress Note ---
Standard Progress Note Progress Notes/Assess & Plan Date Seen by a Provider: Jul 23, 2022 Time Seen by a Provider: 02:32 Progress/Assessment & Plan In pain, described as severe, has AECOPD and had elevated pCO2 but came down with BiPAP WIll give Commodore 5 gm x 1 EDWIGE PATEL MD Jul 23, 2022 02:35
[2022-07-23] MEDS: RT-ALBUTEROL/IPRATROPIUM 3 ML (DUONEB) VIAL INH SCH ×6 (02:49→22:51)
[2022-07-23 05:27] LABS: BASOPHILS % (AUTO) 0 % (0-10); EOSINOPHILS % (AUTO) 0 % (0-10); HEMATOCRIT 38 % (40-54); HEMOGLOBIN 12.4 g/dL (13.3-17.7); LYMPHOCYTES # (AUTO) 0.5 10^3/uL (1.0-4.0); LYMPHOCYTES % (AUTO) 5 % (12-44); MEAN CORPUSCULAR HEMOGLOBIN 32 pg (25-34); MEAN CORPUSCULAR HGB CONC 33 g/dL (32-36); MEAN CORPUSCULAR VOLUME 97 fL (80-99); MEAN PLATELET VOLUME 9.8 fL (9.0-12.2); MONOCYTES # (AUTO) 0.8 10^3/uL (0.0-1.0); MONOCYTES % (AUTO) 8 % (0-12); NEUTROPHILS # (AUTO) 8.9 10^3/uL (1.8-7.8); NEUTROPHILS % (AUTO) 87 % (42-75); PLATELET COUNT 157 10^3/uL (130-400); WHITE BLOOD COUNT 10.2 10^3/uL (4.3-11.0)
[2022-07-23 05:41] LABS: CALCIUM 8.2 MG/DL (8.5-10.1)
[2022-07-23 05:46] LABS: CREATININE SERUM 1.97 MG/DL (0.60-1.30); PHOSPHORUS 2.5 MG/DL (2.3-4.7)
[2022-07-23 05:48] LABS: MAGNESIUM 1.9 MG/DL (1.6-2.4)
--- NOTE | 2022-07-23 05:49 | Progress Note ---
Standard Progress Note Progress Notes/Assess & Plan Date Seen by a Provider: Jul 23, 2022 Time Seen by a Provider: 05:48 Progress/Assessment & Plan Pt asks for something for cough, will give EDWIGE Carroll MD Jul 23, 2022 05:49
[2022-07-23] MEDS: CATHETER FLUSH 10 ML SYR IVP SCH ×3 (06:13→22:54)
[2022-07-23] MEDS: guaiFENesin/DM (ROBITUSSIN DM) 10 ML UDC PO PRN ×2 (06:13→14:56)
--- NOTE | 2022-07-23 06:45 | Diagnostic Imaging Report ---
Indication: Congestive heart failure and dyspnea Portable AP view of the chest is obtained with comparison made to study of one day earlier. Probable interstitial edema and venous congestion are similar to previous study with increasing pleural fluid, greater on the right. No pneumothorax is identified. IMPRESSION: Interstitial edema and/or pneumonitis has shown mild worsening when compared to previous study with an increase in pleural fluid, greater on the right. Dictated by: Dictated on workstation # [id number]
[2022-07-23] MEDS ORDERED: FUROSEMIDE 40 MG/4 ML INJ (LASIX) IVP ONE (08:00)
[2022-07-23] MEDS ORDERED: ENOXAPARIN INJECTION 30 MG/0.3 ML SYR SC SCH (08:45)
[2022-07-23] MEDS ORDERED: meTOproloL SUCCINATE 50 MG (TOPROL XL) TAB PO NR (09:00)
[2022-07-23] MEDS ORDERED: ASPIRIN 81 MG CHEW (CHILDREN'S ASA) PO NR (09:00)
--- NOTE | 2022-07-23 09:08 | Consultation-Cardiology ---
HPI-Cardiology Cardiology Consultation: Date of Consultation 07/23/22 Time Seen by a Provider: 08:10 Date of Admission 07-22-22 Attending Physician Cristhian Osborne MD Admitting Physician Admitting Physician: Solo Jean-Baptiste MD Attending Physician: Solo Jean-Baptiste MD Consulting Physician Elissa Ojeda MD HPI: Chief Complaint: CHF Dyspnea Mr. Bridges is a 76 yr old male admitted to ICU 5 from the ED. He reports up until last week he had been in his usual state of health. He reports last Thursday he started to notice a significant increasing in his SOB and bilat ankle swelling. He states he has not been able to sleep well d/t dyspnea. He reports productive cough of clear sputum. He reports recent increasing episodes of cluster JOINER's. No c/o CP. He denies any n/v/d. He denies any syncope or near syncope. He reports increasing weakness. He reports he uses oxygen PRN. He continues to feel SOB this morning, but feels it has improved somewhat. He states he lives at home alone with his dog. He reports he has no family to speak of. Review of Systems-Cardiology Review of Systems Constitutional: No chills, No fever; malaise Eyes: No vision change Ears/Nose/Throat: No recent hearing loss; other (hoarse voice) Respiratory: As described under HPI Cardiovascular: As described under HPI Gastrointestinal: As described under HPI Genitourinary: No dysuria, No hematuria Musculoskeletal: no symptoms reported Skin: No rash on exposed areas, No ulcerations on exposed areas Psychiatric/Neurological: No anxiety, No depression, No seizure, No focal weakness, No syncope Hematologic: No bleeding abnormalities XQG-Cnaquz-Rzhobl Hx Patient Social History Living Status: Lives in home independently Smoking Status: Former Smoker Have you traveled recently?: No Alcohol Use?: No Pt feels they are or have been: No Past Medical History PMH As described under Assessment. Family Medical History Family Medical History: He denies any family h/o CAD. Allergies and Home Medications Allergies Coded Allergies: No Known Drug Allergies (Unverified , 07/22/22) Patient Home Medication List No Active Prescriptions or Reported Meds Physical Exam-Cardiology Physical Exam Vital Signs/I&O 07/24/22 07/24/22 07/24/22 07/24/22 00:17 01:00 03:49 07:12 Temp 37.2 37.1 Pulse 97 91 87 Resp 20 20 B/P (MAP) 156/88 (110) 169/94 (119) Pulse Ox 95 90 90 O2 Delivery Nasal Cannula Nasal Cannula Nasal Cannula O2 Flow Rate 2.00 2.00 3.00 07/24/22 07/24/22 07:14 07:58 Temp 37.2 Pulse 95 88 Resp 18 B/P (MAP) 155/75 (101) Pulse Ox 90 O2 Delivery Nasal Cannula O2 Flow Rate 2.00 07/24/22 00:00 Intake Total 120 ml Output Total 700 ml Balance -580 ml Capillary Refill : Less Than 3 Seconds Constitutional: AAO x 3, other (thin) HEENT: hearing is well preserved, oral hygience is good Neck: No carotid bruit; carotid pulses are 2 + bilaterally Respiratory: No accessory muscle use, No respiratory distress, No chest expansion is symmetric, No chest is bilaterally symmetric; rhonchi (scattered, prolonged exp phase), other (coarse breath sounds; dyspneic with conversation; diminished lower lobes bilat) Cardiovascular: regular rate-rhythm; No JVD; S1 and S2 Gastrointestinal: No tender; soft, round, audible bowel sounds Extremities: no lower extremity edema bilateral Neurologic/Psychiatric: grossly intact (moves all extremities) Skin: other (mutiple bruising to bilat upper and lower extremities) Data Review Labs Laboratory Tests 07/24/22 05:30: White Blood Count 13.0H, Red Blood Count 4.63, Hemoglobin 14.7, Hematocrit 44, Mean Corpuscular Volume 95, Mean Corpuscular Hemoglobin 32, Mean Corpuscular Hemoglobin Concent 33, Red Cell Distribution Width 14.6H, Platelet Count 205, Mean Platelet Volume 9.7, Immature Granulocyte % (Auto) 1, Neutrophils (%) (Auto) 81H, Lymphocytes (%) (Auto) 8L, Monocytes (%) (Auto) 10, Eosinophils (%) (Auto) 0, Basophils (%) (Auto) 0, Neutrophils # (Auto) 10.5H, Lymphocytes # (Auto) 1.0, Monocytes # (Auto) 1.3H, Eosinophils # (Auto) 0.0, Basophils # (Auto) 0.0, Immature Granulocyte # (Auto) 0.1, Neutrophils % (Manual) 88, Lymphocytes % (Manual) 5, Monocytes % (Manual) 7, Blood Morphology Comment NORMAL, Sodium Level 142, Potassium Level 3.7, Chloride Level 100, Carbon Dioxide Level 30, Anion Gap 12, Blood Urea Nitrogen 28H, Creatinine 1.70H, Estimat Glomerular Filtration Rate 41, BUN/Creatinine Ratio 16, Glucose Level 109H, Calcium Level 8.8, Phosphorus Level 2.3, Magnesium Level 1.8 Microbiology 07/22/22 Blood Culture - Preliminary, Resulted No growth Radiology NAME: JUDIT BRIDGES [facility] REC#: [id number] PT STATUS: ADM IN : 1945 PHYSICIAN: SOLO JEAN-BAPTISTE MD ADMIT DATE: 07/22/22/ICU Signed Date of Exam:07/23/22 CHEST 1 VIEW, AP/PA ONLY Indication: Congestive heart failure and dyspnea Portable AP view of the chest is obtained with comparison made to study of one day earlier. Probable interstitial edema and venous congestion are similar to previous study with increasing pleural fluid, greater on the right. No pneumothorax is identified. IMPRESSION: Interstitial edema and/or pneumonitis has shown mild worsening when compared to previous study with an increase in pleural fluid, greater on the right. Dictated by: Dictated on workstation # [id number] Dict: 07/23/22 0639 Trans: 07/23/22 08 [facility] [id number] Interpreted by: OCTAVIO BONE MD Electronically signed by: OCTAVIO BONE MD 07/23/22 08 ECG Impression ECG Comment ST with IVCD prob old MS A/P-Cardiology Assessment/Admission Diagnosis Progressive dyspnea, multi-factorial - acute on chronic exacerbation of COPD - acute systolic/diastolic CHF - severe pulmonary HTN Acute systolic/diastolic CHF - Echocardiogram of 07-23-22 shows LVEF 40-45% with grade 1 diastolic dysfunction. Mild MR. Severe pulmonary hypertension - PASP 95-100 mmHg on echocardiogram of 07-23-22 Renal insufficiency - undetermined length of time, prob chronic Uncontrolled HTN - start BB tx Adv COPD - reports PRN oxygen H/O tobaccoism - quit in April 2022 Discussion and Recomendations Progressive multi-factorial dyspnea for reasons noted above Acute on chronic exacerbation of COPD - management per medical services Severe pulmonary HTN CHF - treat with diuretics as indicated/tolerated Renal insufficiency - probable CKD - monitor lab closely Uncontrolled HTN with sinus tachycardia - start BB tx - Dc IV nitro Monitor lab closely - replace electrolytes as indicated Further recs will be based on his hospital course We would like to thank medical services for this consult BRICE DEWEY Jul 23, 2022 09:08
[2022-07-23] MEDS: FUROSEMIDE 40 MG/4 ML INJ (LASIX) IVP SCH ×2 (10:20→21:02)
--- NOTE | 2022-07-23 12:20 | Tele-ICU Progress Note ---
Subjective Date Seen by a Provider: Jul 23, 2022 Time Seen by a Provider: 12:20 Subjective/Events-last exam (Tele-ICU Physician , Progress Note ) Available chart/ vitals / labs / Images reviewed Video assessment done using teleICU camera, rest of exam as per RN Discussed with RN Events overnight : Afebrile hemodynamically stable Respiratory - I/O = Drips: Pressors- no Consultants: Hospital course: A/P Acute resp failure with hypercapneic and hypoxic - most likely due to pulm edema +/- AECOPD - was placed on NIPPV in ER - recovered fast - cont NXC , br dilators HTN urgency/ emergency ( with acute end-organ damage - pulm edema - on presentation BP 220/150 ( MAP > 150 - OFF NTG gtt, BP controlled -ECHO 07/23/22- EF 40% , Hypoxia - with CHF and br spam - as per bedside team exam Leukocytosis - can not r/o infection given CXR and infiltrates - sputum cx to obtain , borderline PCT - ( neg covid and flu ) - will start Po doxy for COPD ex / bronchitis VAHID/ ? CKD - worsening , received diuresis - follow SEVERE PULM HTN - echo RVSP 100 mmHg ( in volume overloadde state ? - can be due to chronic hypoxix/ ? ROHAN , but with elevted Ddimer and chronic Pulm HTN , would need VQ to r/o thromboembolic dz - on lovenoc proph dose - MIGHT NEED TO INCREASE DOSE TO FULL Elevated lactate does not correlates with sepsis - will follow with improving oxygentaion and BP - no IVF ( lasix 80 given ) as per ER notes - He states he does not want to be intubated., DNR/DNI. Lines : , (Central Line Necessity Reviewed) Ramachandran: OG: Nutrition: Analgesia: Anxiety/ delirium VTE Prophylaxis: gustavo 30 Stress Ulcer Prophylaxis: Plans in collaboration with bedside consultants and IM MDs. Discussed with RN to reach out if any questions or concerns A total of 31 minutes of critical care time was devoted to this patient today, required to treat and/or prevent further deterioration of critical care condition ( as above ) . Sepsis Event Evaluation Height, Weight, BMI Height: '" Weight: lbs. oz. kg; 16.87 BMI Method: Focused Exam Lactate Level 07/22/22 10:30: Lactic Acid Level 3.14*H 07/22/22 13:55: Lactic Acid Level 1.59 Exam Exam Patient acknowledged, consented, and participated in this virtual visit which was conducted using real time audio/video Vital Signs Date Time Temp Pulse Resp B/P (MAP) Pulse Ox O2 Delivery O2 Flow Rate FiO2 07/23/22 11:13 97 Nasal Cannula 2.00 07/23/22 10:00 97 12 152/98 (116) 94 Nasal Cannula 2.00 07/23/22 09:00 101 12 155/99 (117) 95 Nasal Cannula 2.00 07/23/22 08:00 94 15 143/83 (103) 95 Nasal Cannula 2.00 07/23/22 07:27 Nasal Cannula 2.00 07/23/22 07:01 90 07/23/22 07:00 93 19 145/88 (107) 90 Nasal Cannula 2.00 07/23/22 06:00 82 18 131/73 (92) 96 Nasal Cannula 2.00 07/23/22 05:00 95 18 149/81 (103) 94 Nasal Cannula 2.00 07/23/22 04:16 95 Nasal Cannula 2.00 07/23/22 04:16 36.7 Nasal Cannula 2.00 07/23/22 04:00 83 15 140/72 (94) 96 Nasal Cannula 2.00 07/23/22 03:00 84 20 132/71 (91) 95 Nasal Cannula 2.00 07/23/22 02:45 95 Nasal Cannula 07/23/22 02:00 81 22 135/89 (104) 96 Nasal Cannula 2.00 07/23/22 01:00 87 18 147/89 (108) 96 Nasal Cannula 2.00 07/23/22 01:00 87 07/23/22 00:00 80 15 136/67 (90) 96 Nasal Cannula 2.00 07/23/22 00:00 37.2 Nasal Cannula 2.00 07/22/22 23:30 95 Nasal Cannula 2.00 07/22/22 23:01 95 07/22/22 23:00 80 21 129/70 (89) 98 Nasal Cannula 2.00 07/22/22 22:53 95 Nasal Cannula 3.00 07/22/22 22:00 84 21 118/65 (82) 97 Nasal Cannula 2.00 07/22/22 21:00 92 15 132/70 (90) 96 Nasal Cannula 2.00 07/22/22 20:00 90 21 132/71 (91) 96 Nasal Cannula 2.00 07/22/22 20:00 94 Nasal Cannula 2.00 07/22/22 19:30 36.4 Nasal Cannula 2.00 07/22/22 19:09 96 Nasal Cannula 3.00 07/22/22 19:00 80 07/22/22 19:00 80 14 144/84 (104) 97 Nasal Cannula 2.00 07/22/22 18:00 90 28 137/105 (116) 91 Nasal Cannula 2.00 07/22/22 17:15 85 17 128/89 (102) 96 Nasal Cannula 2.00 07/22/22 16:00 89 16 162/94 (116) 95 Nasal Cannula 2.00 07/22/22 15:00 94 10 154/97 (116) 90 Nasal Cannula 2.00 07/22/22 14:45 77 15 92 Nasal Cannula 2.00 07/22/22 14:30 76 16 142/81 (101) 92 Nasal Cannula 2.00 07/22/22 14:15 80 29 154/95 (114) 90 Nasal Cannula 2.00 07/22/22 14:00 79 29 157/98 (117) 91 Nasal Cannula 2.00 07/22/22 13:45 78 15 150/92 (111) 89 Room Air 07/22/22 13:38 35.7 112 100 100 07/22/22 13:30 82 17 163/101 (121) 88 Room Air 07/22/22 13:25 81 07/22/22 13:15 85 28 159/109 (126) 93 Room Air 07/22/22 13:00 85 156/104 (121) Room Air 07/22/22 12:56 94 Nasal Cannula 3.00 I & O 07/23/22 07:00 Intake Total 825 ml Output Total 1450 ml Balance -625 ml Height & Weight Height: '" Weight: lbs. oz. kg; 16.87 BMI Method: General Appearance: No Apparent Distress, Anxious, Chronically ill, Moderate Distress (working hard to breath) HEENT: PERRL/EOMI, Moist Mucous Membranes Neck: Non Tender, Supple Respiratory: Chest Non Tender, Accessory Muscle Use, Decreased Breath Sounds (especially in the bases), Respiratory Distress; No Stridor Cardiovascular: Normal Peripheral Pulses, Tachycardia Capillary Refill: Less Than 3 Seconds Gastrointestinal: normal bowel sounds, non tender, soft Extremity: Normal Capillary Refill, Normal Inspection, No Pedal Edema Neurologic/Psychiatric: Alert Skin: Warm/Dry, Pallor Results Lab Laboratory Tests 07/22/22 10:30 07/22/22 13:55 07/23/22 04:35 Assessment/Plan Assessment/Plan 1 KAY CHAVIRA MD Jul 23, 2022 12:20
[2022-07-23] MEDS ORDERED: ENOXAPARIN INJECTION 30 MG/0.3 ML SYR SC ONE (14:30)
--- NOTE | 2022-07-23 14:58 | Consultation-Cardiology ---
HPI-Cardiology Cardiology Consultation: Date of Consultation 07/23/22 Time Seen by a Provider: 13:00 Date of Admission Attending Physician Cristhian Osborne MD Admitting Physician Admitting Physician: Terra Gonzalez MD Attending Physician: Terra Gonzalez MD Consulting Physician JEANNIE SORIA MD, MA, FACP, FACC, [facility] [place] CCDS HPI: Chief Complaint: CHF Dyspnea Mr. Bridges is a 76 yr old male admitted to ICU 5 from the ED. He reports up until last week he had been in his usual state of health. He reports last Thursday he started to notice a significant increasing in his SOB and bilat ankle swelling. He states he has not been able to sleep well d/t dyspnea. He reports productive cough of clear sputum. He reports recent increasing episodes of cluster JOINER's. No c/o CP. He denies any n/v/d. He denies any syncope or near syncope. He reports increasing weakness. He reports he uses oxygen PRN. He continues to feel SOB this morning, but feels it has improved somewhat. He states he lives at home alone with his dog. He reports he has no family to speak of. Review of Systems-Cardiology Review of Systems Constitutional: No chills, No fever; malaise Eyes: No vision change Ears/Nose/Throat: No recent hearing loss; other (hoarse voice) Respiratory: As described under HPI Cardiovascular: As described under HPI Gastrointestinal: As described under HPI Genitourinary: No dysuria, No hematuria Musculoskeletal: no symptoms reported Skin: No rash on exposed areas, No ulcerations on exposed areas Psychiatric/Neurological: No anxiety, No depression, No seizure, No focal weakness, No syncope Hematologic: No bleeding abnormalities KRW-Ifuyzi-Kakeai Hx Patient Social History Living Status: Lives in home independently Smoking Status: Former Smoker Have you traveled recently?: No Alcohol Use?: No Pt feels they are or have been: No Past Medical History PMH As described under Assessment. Family Medical History Family Medical History: He denies any family h/o CAD. Allergies and Home Medications Allergies Coded Allergies: No Known Drug Allergies (Unverified , 07/22/22) Patient Home Medication List Home Medication List Reviewed: Yes No Active Prescriptions or Reported Meds Physical Exam-Cardiology Physical Exam Vital Signs/I&O 07/23/22 07/23/22 07/23/22 07/23/22 03:00 04:00 04:16 04:16 Temp 36.7 Pulse 84 83 Resp 20 15 B/P (MAP) 132/71 (91) 140/72 (94) Pulse Ox 95 96 95 O2 Delivery Nasal Cannula Nasal Cannula Nasal Cannula Nasal Cannula O2 Flow Rate 2.00 2.00 2.00 2.00 07/23/22 07/23/22 07/23/22 07/23/22 05:00 06:00 07:00 07:01 Pulse 95 82 93 90 Resp 18 18 19 B/P (MAP) 149/81 (103) 131/73 (92) 145/88 (107) Pulse Ox 94 96 90 O2 Delivery Nasal Cannula Nasal Cannula Nasal Cannula O2 Flow Rate 2.00 2.00 2.00 07/23/22 07/23/22 07/23/22 07/23/22 07:27 08:00 08:00 09:00 Pulse 94 101 Resp 15 12 B/P (MAP) 143/83 (103) 155/99 (117) Pulse Ox 95 95 95 O2 Delivery Nasal Cannula Nasal Cannula Nasal Cannula Nasal Cannula O2 Flow Rate 2.00 2.00 2.00 2.00 07/23/22 07/23/22 07/23/22 07/23/22 10:00 11:00 11:13 12:00 Pulse 97 90 102 Resp 12 15 12 B/P (MAP) 152/98 (116) 147/91 (109) Pulse Ox 94 96 97 96 O2 Delivery Nasal Cannula Nasal Cannula Nasal Cannula Nasal Cannula O2 Flow Rate 2.00 2.00 2.00 2.00 07/23/22 07/23/22 07/23/22 13:00 13:09 13:47 Temp 36.7 Pulse 107 105 97 Resp 30 20 B/P (MAP) 161/95 (117) 158/84 (108) Pulse Ox 93 95 O2 Delivery Nasal Cannula Nasal Cannula O2 Flow Rate 2.00 2.00 07/23/22 00:00 Intake Total 425 ml Output Total 1200 ml Balance -775 ml Capillary Refill : Less Than 3 Seconds Constitutional: AAO x 3, other (thin) HEENT: hearing is well preserved, oral hygience is good Neck: No carotid bruit; carotid pulses are 2 + bilaterally Respiratory: No accessory muscle use, No respiratory distress, No chest expansion is symmetric, No chest is bilaterally symmetric; rhonchi (scattered, prolonged exp phase), other (coarse breath sounds; dyspneic with conversation; diminished lower lobes bilat) Cardiovascular: regular rate-rhythm; No JVD; S1 and S2 Gastrointestinal: No tender; soft, round, audible bowel sounds Extremities: no lower extremity edema bilateral Neurologic/Psychiatric: grossly intact (moves all extremities) Skin: other (mutiple bruising to bilat upper and lower extremities) Data Review Labs Laboratory Tests 07/22/22 15:00: Blood Gas Puncture Site RIGHT WRIST, Blood Gas Patient Temperature 36.8, Arterial Blood pH 7.37, Arterial Blood Partial Pressure CO2 49H, Arterial Blood Partial Pressure O2 57L, Arterial Blood HCO3 28H, Arterial Blood Total CO2 29.0, Arterial Blood Oxygen Saturation 91L, Arterial Blood Base Excess 2.6H, Nicho Test POSITIVE, Blood Gas Ventilator Setting NO, Blood Gas Inspired Oxygen UNK 07/23/22 01:47: Glucometer 163H 07/23/22 04:35: White Blood Count 10.2, Red Blood Count 3.91L, Hemoglobin 12.4L, Hematocrit 38L, Mean Corpuscular Volume 97, Mean Corpuscular Hemoglobin 32, Mean Corpuscular Hemoglobin Concent 33, Red Cell Distribution Width 14.3, Platelet Count 157, Mean Platelet Volume 9.8, Immature Granulocyte % (Auto) 1, Neutrophils (%) (Auto) 87H, Lymphocytes (%) (Auto) 5L, Monocytes (%) (Auto) 8, Eosinophils (%) (Auto) 0, Basophils (%) (Auto) 0, Neutrophils # (Auto) 8.9H, Lymphocytes # (Auto) 0.5L, Monocytes # (Auto) 0.8, Eosinophils # (Auto) 0.0, Basophils # (Auto) 0.0, Immature Granulocyte # (Auto) 0.1, Sodium Level 141, Potassium Level 4.0, Chloride Level 103, Carbon Dioxide Level 23, Anion Gap 15H, Blood Urea Nitrogen 28H, Creatinine 1.97H, Estimat Glomerular Filtration Rate 34, BUN/Creatinine Ratio 14, Glucose Level 159H, Calcium Level 8.2L, Phosphorus Level 2.5, Magnesium Level 1.9 Microbiology 07/22/22 Blood Culture - Preliminary, Resulted No growth A/P-Cardiology Assessment/Admission Diagnosis Progressive dyspnea, multi-factorial - acute on chronic exacerbation of COPD - acute systolic and diastolic CHF - severe pulmonary HTN Acute systolic/diastolic CHF - Echocardiogram of 07-23-22 shows LVEF 40-45% with grade 1 diastolic dy sfunction. Mild MR. Severe pulmonary hypertension - PASP 95-100 mmHg on echocardiogram of 07-23-22 Renal insufficiency - undetermined length of time, prob chronic Uncontrolled HTN - start BB tx Adv COPD - reports PRN oxygen H/O tobaccoism - quit in April 2022 Discussion and Recomendations Progressive multi-factorial dyspnea for reasons noted above Acute on chronic exacerbation of COPD - management per medical services Severe pulmonary HTN CHF - treat with diuretics as indicated/tolerated Renal insufficiency - probable CKD - monitor lab closely Uncontrolled HTN with sinus tachycardia - start BB tx - Dc IV nitro Monitor lab closely - replace electrolytes as indicated Further recs will be based on his hospital course We would like to thank medical services for this consult JEANNIE SORIA MD FACP FAC CCDS Jul 23, 2022 14:58
--- NOTE | 2022-07-23 15:26 | Progress Note ---
VIRIDIANA ORTEGA 07/23/22 1526: Subjective Subjective/Events-last exam Patient admitted on 07/22 for respiratory failure with hypercapnia, acute on chronic heart failure, COPD exacerbation and hypertensive emergency after a visit to the ER for severe shortness of breath. His symptoms improved in the hours following admission, and he continues to breath easily and hold conversation without difficulty. He denies shortness of breath, chest pain, GI disturbances, headache, dizziness and changes in vision and hearing. He states he is hoping to be discharged soon. Focused Exam Lactate Level 07/22/22 10:30: Lactic Acid Level 3.14*H 07/22/22 13:55: Lactic Acid Level 1.59 Objective Exam Last Set of Vital Signs Vital Signs Date Time Temp Pulse Resp B/P (MAP) Pulse Ox O2 Delivery O2 Flow Rate FiO2 07/23/22 15:10 37.0 94 22 157/84 (108) 95 Nasal Cannula 2.00 07/22/22 13:38 100 Capillary Refill : Less Than 3 Seconds I&O Intake and Output 07/23/22 00:00 Intake Total 425 ml Output Total 1200 ml Balance -775 ml Intake Oral 425 ml Output Urine Total 1200 ml # Bowel Movements 1 General: Alert, Oriented X3 Lungs: Other (crackling bilaterally ) Heart: Regular Rate, Normal S1, Normal S2 Extremities: Other (edema of legs, bilaterally. ) Results/Procedures Lab Laboratory Tests 07/23/22 01:47: Glucometer 163H 07/23/22 04:35: White Blood Count 10.2, Red Blood Count 3.91L, Hemoglobin 12.4L, Hematocrit 38L, Mean Corpuscular Volume 97, Mean Corpuscular Hemoglobin 32, Mean Corpuscular Hemoglobin Concent 33, Red Cell Distribution Width 14.3, Platelet Count 157, Mean Platelet Volume 9.8, Immature Granulocyte % (Auto) 1, Neutrophils (%) (Auto) 87H, Lymphocytes (%) (Auto) 5L, Monocytes (%) (Auto) 8, Eosinophils (%) (Auto) 0, Basophils (%) (Auto) 0, Neutrophils # (Auto) 8.9H, Lymphocytes # (Auto) 0.5L, Monocytes # (Auto) 0.8, Eosinophils # (Auto) 0.0, Basophils # (Auto) 0.0, Immature Granulocyte # (Auto) 0.1, Sodium Level 141, Potassium Level 4.0, Chloride Level 103, Carbon Dioxide Level 23, Anion Gap 15H, Blood Urea Nitrogen 28H, Creatinine 1.97H, Estimat Glomerular Filtration Rate 34, BUN/Creatinine Ratio 14, Glucose Level 159H, Calcium Level 8.2L, Phosphorus Level 2.5, Magnesium Level 1.9 Microbiology 07/22/22 Blood Culture - Preliminary, Resulted No growth Radiology NAME: JUDIT WILDE [facility] REC#: [id number] PT STATUS: ADM IN : 1945 PHYSICIAN: SOLO JEAN-BAPTISTE MD ADMIT DATE: 07/22/22/ICU Signed Date of Exam:07/23/22 CHEST 1 VIEW, AP/PA ONLY Indication: Congestive heart failure and dyspnea Portable AP view of the chest is obtained with comparison made to study of one day earlier. Probable interstitial edema and venous congestion are similar to previous study with increasing pleural fluid, greater on the right. No pneumothorax is identified. IMPRESSION: Interstitial edema and/or pneumonitis has shown mild worsening when compared to previous study with an increase in pleural fluid, greater on the right. Dictated by: Dictated on workstation # [id number] Dict: 07/23/22 0639 Trans: 07/23/22 0802 [facility] [id number] Interpreted by: OCTAVIO BONE MD Electronically signed by: OCTAVIO BONE MD 07/23/22 08 Assessment/Plan Assessment/Plan Reason for Inpatient Admission: Patient admitted for respiratory failure with hypercapnia, acute on chronic heart failure, COPD exacerbation, and hypertensive emergency. Assessment & Plan CHF / pulmonary edema: 40 mg furosemide qday injection to manage fluid overload CKD: recent decline in kidney function likely related to diuretic use: GFR of 34, Cr 1.97, BUN 28. COPD: 2 L of O2, budesonide-formoterol, albuterol sulfate. HTN: metoprolol, clonidine PVD: aspirin, enoxaparin injection qday for DVT prophylaxis Cardiomegaly Neuropathy: Gabapentin Cluster-headache, not intractible Since admission, respiratory function has improved with pCO2 and lactic acid remaining stable. There is still fluid in the lungs and edema in the legs. Patient will continue furosemide while we monitor kidney function. Patient was also seen by ICU physician who gave doxycyline to cover for potential pneumonia. SOLO JEAN-BAPTISTE MD 07/23/221953: Subjective Review of Systems General: Malaise Pulmonary: Dyspnea, Cough Cardiovascular: Edema; No: Chest Pain, Palpitations Gastrointestinal: No: Nausea, Vomiting, Abdominal Pain, Diarrhea, Constipation Neurological: Weakness, Incoordination Objective Exam General: Alert, Oriented X3, Mild Distress (with activity) Lungs: Other (bilateral wheezing, normal work of breathing) Heart: Regular Rate, No Murmurs Abdomen: Normal Bowel Sounds, Soft Extremities: Other (edema of legs, bilaterally. ) Neuro: Normal Speech, Cranial Nerves 3-12 NL Supervisory-Addendum Brief Verification & Attestation Participated in pt care: history, physical Personally performed: exam, history Care discussed with: Medical Student Procedures: n/a Verification and Attestation of Medical Student E/M Service A medical student performed and documented this service in my presence. I rev iewed and verified all information documented by the medical student and made modifications to such information, when appropriate. I personally performed the physical exam and medical decision making. Solo Jean-Baptiste, Jul 23, 2022,19:50 Acute on Chronic Respiratory Failure with hypoxia and hypercarbia Pulmonary Edema COPD Exacerbation - Patient started on bipap, MAT protocol and breathing treatments, IV steroids - He was able to titrate to NC shortly after arrival to hosp - Possible new home oxygen need at discharge, will monitor - 07/23: Will need new oxygen order at discharge, improved today, Echo showed severe pulm HTN, V/Q scan ordered and lovenox changed to treatment dosing Hypertensive Emergency - Nitro drip started in ER - Will restart home meds Acute systolic/Diastolic Heart Failure Elevated BNP Pulmonary edema - Cardiology consulted for new diagnosis of CHF - Echo ordered and pending - S/p Lasix 80 mg in ER, schedule 40 mg Lasix in AM - 07/23: Dr Ojeda ordered lasix 40 mg BID, monitor Cr due to increasing BUN/Cr Acute Renal Failure - Unknown baseline, monitor closely due to diuresis Tobacco Dependence - Quit in April, continue to focus on cessation Elevated D-Dimer - V/Q Scan ordered Cachexia DVT Px: Lovenox treatment/Renal dosing VIRIDIANA ORTEGA Jul 23, 2022 15:26 SOLO JEAN-BAPTISTE MD Jul 23, 2022 19:54
[2022-07-23] MEDS: DOXYCYCLINE 100 MG (VIBRAMYCIN) TABLET PO SCH (17:53)
[2022-07-23] MEDS: RT--FLUTICASONE/SALMETEROL 113-14 (AIRDUO RespiCLICK) IH SCH (18:51)
[2022-07-24] MEDS: guaiFENesin/DM (ROBITUSSIN DM) 10 ML UDC PO PRN (00:30)
[2022-07-24] MEDS: RT-ALBUTEROL/IPRATROPIUM 3 ML (DUONEB) VIAL INH SCH ×6 (02:58→23:03)
[2022-07-24 05:56] LABS: BASOPHILS % (AUTO) 0 % (0-10); EOSINOPHILS % (AUTO) 0 % (0-10); HEMATOCRIT 44 % (40-54); HEMOGLOBIN 14.7 g/dL (13.3-17.7); LYMPHOCYTES % (AUTO) 8 % (12-44); MEAN CORPUSCULAR HEMOGLOBIN 32 pg (25-34); MEAN CORPUSCULAR HGB CONC 33 g/dL (32-36); MEAN CORPUSCULAR VOLUME 95 fL (80-99); MEAN PLATELET VOLUME 9.7 fL (9.0-12.2); MONOCYTES # (AUTO) 1.3 10^3/uL (0.0-1.0); MONOCYTES % (AUTO) 10 % (0-12); NEUTROPHILS # (AUTO) 10.5 10^3/uL (1.8-7.8); NEUTROPHILS % (AUTO) 81 % (42-75); PLATELET COUNT 205 10^3/uL (130-400)
[2022-07-24 06:22] LABS: POTASSIUM 3.7 MMOL/L (3.6-5.0)
[2022-07-24 06:24] LABS: CALCIUM 8.8 MG/DL (8.5-10.1)
[2022-07-24 06:28] LABS: CREATININE SERUM 1.7 MG/DL (0.60-1.30); PHOSPHORUS 2.3 MG/DL (2.3-4.7)
[2022-07-24 06:30] LABS: MAGNESIUM 1.8 MG/DL (1.6-2.4)
[2022-07-24 06:40] LABS: LYMPHOCYTES % (MANUAL) 5 %; MONOCYTES % (MANUAL) 7 %; NEUTROPHILS % (MANUAL) 88 %; RBC MORPH NORMAL
[2022-07-24] MEDS: RT--FLUTICASONE/SALMETEROL 113-14 (AIRDUO RespiCLICK) IH SCH ×2 (07:12→18:39)
[2022-07-24] MEDS ORDERED: FUROSEMIDE 40 MG/4 ML INJ (LASIX) IVP SCH (09:00)
[2022-07-24] MEDS ORDERED: meTOproloL SUCCINATE 50 MG (TOPROL XL) TAB PO SCH (09:00)
[2022-07-24] MEDS ORDERED: ENOXAPARIN 60 MG/0.6 ML (LOVENOX) SYR SC SCH (09:00)
--- NOTE | 2022-07-24 09:37 | Progress Note - Cardiology ---
Cardiology SOAP Progress Note Objective: I&O/Vital Signs 07/24/22 07/24/22 07/24/22 07/24/22 00:17 01:00 03:49 07:12 Temp 37.2 37.1 Pulse 97 91 87 Resp 20 20 B/P (MAP) 156/88 (110) 169/94 (119) Pulse Ox 95 90 90 O2 Delivery Nasal Cannula Nasal Cannula Nasal Cannula O2 Flow Rate 2.00 2.00 3.00 07/24/22 07/24/22 07:14 07:58 Temp 37.2 Pulse 95 88 Resp 18 B/P (MAP) 155/75 (101) Pulse Ox 90 O2 Delivery Nasal Cannula O2 Flow Rate 2.00 07/24/22 00:00 Intake Total 120 ml Output Total 700 ml Balance -580 ml Constitutional: AAO x 3, other (thin) Respiratory: No accessory muscle use, No respiratory distress, No chest expansion is symmetric, No chest is bilaterally symmetric; rhonchi (scattered, prolonged exp phase), other (coarse breath sounds; dyspneic with conversation; diminished lower lobes bilat) Cardiovascular: regular rate-rhythm; No JVD; S1 and S2 Gastrointestional: No tender; soft, round, audible bowel sounds Extremities: no lower extremity edema bilateral Neurologic/Psychiatric: grossly intact (moves all extremities) Skin: other (mutiple bruising to bilat upper and lower extremities) Results/Procedures: Labs Laboratory Tests 07/24/22 05:30: White Blood Count 13.0H, Red Blood Count 4.63, Hemoglobin 14.7, Hematocrit 44, Mean Corpuscular Volume 95, Mean Corpuscular Hemoglobin 32, Mean Corpuscular Hemoglobin Concent 33, Red Cell Distribution Width 14.6H, Platelet Count 205, Mean Platelet Volume 9.7, Immature Granulocyte % (Auto) 1, Neutrophils (%) (Auto) 81H, Lymphocytes (%) (Auto) 8L, Monocytes (%) (Auto) 10, Eosinophils (%) (Auto) 0, Basophils (%) (Auto) 0, Neutrophils # (Auto) 10.5H, Lymphocytes # (Auto) 1.0, Monocytes # (Auto) 1.3H, Eosinophils # (Auto) 0.0, Basophils # (Auto) 0.0, Immature Granulocyte # (Auto) 0.1, Neutrophils % (Manual) 88, Lymphocytes % (Manual) 5, Monocytes % (Manual) 7, Blood Morphology Comment NORMAL, Sodium Level 142, Potassium Level 3.7, Chloride Level 100, Carbon Dioxide Level 30, Anion Gap 12, Blood Urea Nitrogen 28H, Creatinine 1.70H, Estimat Glomerular Filtration Rate 41, BUN/Creatinine Ratio 16, Glucose Level 109H, Calcium Level 8.8, Phosphorus Level 2.3, Magnesium Level 1.8 Microbiology 07/22/22 Blood Culture - Preliminary, Resulted No growth Laboratory Tests 07/22/22 10:30 07/22/22 13:55 07/23/22 04:35 07/24/22 05:30 A/P: Assessment: Progressive dyspnea, multi-factorial - acute on chronic exacerbation of COPD - acute systolic and diastolic CHF - severe pulmonary HTN Acute systolic/diastolic CHF - Echocardiogram of 07-23-22 shows LVEF 40-45% with grade 1 diastolic dysfunction. Mild MR. Severe pulmonary hypertension - PASP 95-100 mmHg on echocardiogram of 07-23-22 Renal insufficiency - undetermined length of time, prob chronic Uncontrolled HTN - start BB tx Adv COPD - reports PRN oxygen H/O tobaccoism - quit in April 2022 Plan: Progressive multi-factorial dyspnea for reasons noted above Acute on chronic exacerbation of COPD - management per medical services Severe pulmonary HTN CHF - treat with diuretics as indicated/tolerated Renal insufficiency - probable CKD - monitor lab closely - renal function improved today Uncontrolled HTN with sinus tachycardia - improved, but not ideal - increase BB Monitor lab closely - replace electrolytes as indicated BRICE DEWEY Jul 24, 2022 09:37
[2022-07-24] MEDS: DOXYCYCLINE 100 MG (VIBRAMYCIN) TABLET PO SCH ×2 (09:51→18:15)
[2022-07-24] MEDS: CATHETER FLUSH 10 ML SYR IVP SCH ×3 (09:52→20:39)
[2022-07-24] MEDS: ASPIRIN 81 MG CHEW (CHILDREN'S ASA) PO SCH (09:52)
[2022-07-24] MEDS: FUROSEMIDE 40 MG/4 ML INJ (LASIX) IVP SCH ×2 (09:53→20:39)
[2022-07-24] MEDS ORDERED: FURO-124 PO (09:57)
[2022-07-24] MEDS ORDERED: MTP100TCR PO (09:57)
[2022-07-24] MEDS ORDERED: POTA10CA43 PO (09:57)
[2022-07-24] MEDS ORDERED: ASPI81TA64 PO (09:57)
[2022-07-24] MEDS ORDERED: meTOproloL SUCCINATE 50 MG (TOPROL XL) TAB PO NR (10:00)
--- NOTE | 2022-07-24 10:15 | Physical Therapy Evaluation ---
PT Evaluation-General Medical Diagnosis Admission Date Jul 22, 2022 at 12:52 Medical Diagnosis: COPD exacerbation/CHF Onset Date: Jul 22, 2022 Therapy Diagnosis Therapy Diagnosis: debility/weakness Precautions Precautions/Isolations: Fall Prevention, Standard Precautions Referral Physician: Lisa Reason for Referral: Evaluation/Treatment Medical History Pertinent Medical History: COPD, HTN Current History EMS secondary to dyspnea Reviewed History: Yes Social History Home: Single Level Current Living Status: Alone Entry Into Home: Level Entry Prior Prior Level of Function SCALE: Activities may be completed with or without assistive devices. 7-Ajnwnahcjv-embsrvd completes the activity by him/herself with no assistance from a helper. 5-Set-up or Clean-up Assistance-helper sets up or cleans up; patient completes activity. [place] assists only prior to or following the activity. 4-Supervision or Touching Assistance-helper provides verbal cues and/or touching/steadying and/or contact guard assistance as patient completes activity. Assistance may be provided throughout the activity or intermittently. 3-Partial/Moderate Assistance-helper does LESS THAN HALF the effort. [place] lifts, holds or supports trunk or limbs, but provides less than half the effort. 2-Substantial/Maximal Assistance-helper does MORE THAN HALF the effort. [place] lifts or holds trunk or limbs and provides more than half the effort. 0-Lwydrzetv-hmuhya does ALL the effort. Patient does none of the effort to com plete the activity. Or, the assistance of 2 or more helpers is required for the patient to complete the activity. If activity was not attempted, code reason: 7-Patient Refused. 9-Not Applicable-not attempted and the patient did not perform the activity before the current illness, exacerbation or injury. 10-Not Attempted due to Environmental Limitations-(lack of equipment, weather restraints, etc.). 88-Not Attempted due to Medical Conditions or Safety Concerns. Bed Mobility: 6 Transfers (B,C,W/C): 6 Gait: 6 Indoor Mobility (Ambulation): Independent Prior Devices Use: None PT Evaluation-Current Subjective Patient agrees to PT. Objective Patient Orientation: Normal For Age Attachments: Oxygen (3L NC), Ramachandran Catheter ROM/Strength ROM Lower Extremities bilateral LE WFL Strength Lower Extremities 4-/5 grossly bilateral LE all planes Integumentary/Posture Integumentary refer to nursing notes Bowel Incontinence: No Bladder Incontinence: Ramachandran Cath Posture kyphotic Neuromuscular (Tone, Coordination, Reflexes) grossly intact Sensory Vision: Functional Hearing: Impaired Transfers Lying to Sitting/Side of Bed(Q: 6 Sit to Stand (QC): 4 Chair/Ere-nf-Ytgkm Xfer(QC): 4 Gait Mode of Locomotion: Walk Anticipated Mode of Locomotion: Walk Walk 10 feet (QC): 4 Walk 50 ft with 2 Turns(QC): 4 Walk 150 ft (QC): 4 Distance: 400' Gait Assistive Device: FWW Comments/Gait Description NBOS/functional gait sequence Balance Sitting Static: Normal Sitting Dynamic: Normal Standing Static: Normal Standing Dynamic: Normal Picking up an Object (QC): 6 Assessment/Needs 76 y.o. male, will be seen short term by skilled PT to address pulmonary function with functional mobility to ensure safe return to home or care facility at maximum LOF. Rehab Potential: Fair PT Tourist Information Assistant Goals Tourist Information Assistant Goals PT Tourist Information Assistant Goals Time Frame: Aug 09, 2022 Roll Left & Right (QC): 6 Sit to Lying (QC): 6 Lying-Sitting on Side/Bed(QC): 6 Sit to Stand (QC): 6 Chair/Dhz-yd-Xcfbl Xfer(QC): 6 Toilet Transfer (QC): 6 Walk 10 feet (QC): 6 Walk 50ft with 2 Turns (QC): 6 Walk 150 ft (QC): 6 PT Plan Problem List Problem List: Activity Tolerance, Functional Strength, Safety, Balance, Gait, Transfer Treatment/Plan Treatment Plan: Continue Plan of Care Treatment Plan: Education, Functional Activity Jen, Functional Strength, Gait, Safety, Therapeutic Exercise, Transfers Treatment Duration: Aug 09, 2022 Frequency: 6 times per week Estimated Hrs Per Day: .25 hour per day Patient and/or Family Agrees t: Yes Time/GCodes Time In: 921 Time Out: 933 Total Billed Treatment Time: 12 Total Billed Treatment 1 visit EVModC 12 min SHANE ORDONEZ PT Jul 24, 2022 10:15
--- NOTE | 2022-07-24 10:25 | Diagnostic Imaging Report ---
LUNG SCAN PERFUSION INDICATION: Severe pulmonary hypertension COMPARISON: None available. TECHNIQUE: Perfusion only imaging of the lungs was performed after the administration of 5.1 mCi of technetium 99 MAA FINDINGS: There is heterogeneous perfusion throughout the lungs, which is most conspicuous in the upper lung zones. In the posterior right upper lobe, there is a potential segmental perfusion defect. IMPRESSION: Intermediate to high probability of pulmonary emboli, which could be acute or chronic. However, patient has underlying advanced emphysema, this could complicate the appearance of perfusion only imaging. If patient is able to have IV contrast, then a CTA chest with pulmonary embolism protocol is recommended. If IV contrast was not able to be administered, then a CT chest without contrast would help assess for lung parenchymal abnormalities, such as emphysema. Dictated by: Dictated on workstation # [id number]
[2022-07-24 11:36] VITALS: BP 162/84
--- NOTE | 2022-07-24 13:28 | Progress Note ---
VIRIDIANA ORTEGA 07/24/22 1328: Subjective Subjective/Events-last exam Patient admitted on 07/22 for respiratory failure with hypercapnia, acute on chronic heart failure, COPD exacerbation and hypertensive emergency after a visit to the ER for severe shortness of breath. His symptoms improved in the hours following admission, and he continues to breath easily. He notes some fatigue that he says is worst in the morning and improves throughout the day. He is anxious to be discharged, but has no other significant complaints. He denies shortness of breath, chest pain, GI disturbances, headache, dizziness and changes in vision and hearing. Focused Exam Lactate Level 07/22/22 10:30: Lactic Acid Level 3.14*H 07/22/22 13:55: Lactic Acid Level 1.59 Objective Exam Last Set of Vital Signs Vital Signs Date Time Temp Pulse Resp B/P (MAP) Pulse Ox O2 Delivery O2 Flow Rate FiO2 07/24/22 11:36 37.3 88 19 162/84 (110) 93 Nasal Cannula 3.00 07/22/22 13:38 100 Capillary Refill : Less Than 3 Seconds I&O Intake and Output 07/24/22 00:00 Intake Total 760 ml Output Total 1150 ml Balance -390 ml Intake Oral 760 ml Output Urine Total 1150 ml General: Alert Lungs: Other (slight crackles on ascultation of anterior chest. ) Heart: Regular Rate, Normal S1, Normal S2, No Murmurs Abdomen: Normal Bowel Sounds Skin: Other (Mild edema of both legs. ) Neuro: Normal Speech Psych/Mental Status: Mental Status NL Results/Procedures Lab Laboratory Tests 07/24/22 05:30: White Blood Count 13.0H, Red Blood Count 4.63, Hemoglobin 14.7, Hematocrit 44, Mean Corpuscular Volume 95, Mean Corpuscular Hemoglobin 32, Mean Corpuscular Hemoglobin Concent 33, Red Cell Distribution Width 14.6H, Platelet Count 205, Mean Platelet Volume 9.7, Immature Granulocyte % (Auto) 1, Neutrophils (%) (Auto) 81H, Lymphocytes (%) (Auto) 8L, Monocytes (%) (Auto) 10, Eosinophils (%) (Auto) 0, Basophils (%) (Auto) 0, Neutrophils # (Auto) 10.5H, Lymphocytes # (Auto) 1.0, Monocytes # (Auto) 1.3H, Eosinophils # (Auto) 0.0, Basophils # (Auto) 0.0, Immature Granulocyte # (Auto) 0.1, Neutrophils % (Manual) 88, Lymphocytes % (Manual) 5, Monocytes % (Manual) 7, Blood Morphology Comment NORMAL, Sodium Level 142, Potassium Level 3.7, Chloride Level 100, Carbon Dioxide Level 30, Anion Gap 12, Blood Urea Nitrogen 28H, Creatinine 1.70H, Estimat Glomerular Filtration Rate 41, BUN/Creatinine Ratio 16, Glucose Level 109H, Calcium Level 8.8, Phosphorus Level 2.3, Magnesium Level 1.8 Microbiology 07/22/22 Blood Culture - Preliminary, Resulted No growth Radiology NAME: [facility] REC#: [id number] PT STATUS: ADM IN : 1945 PHYSICIAN: SOLO JEAN-BAPTISTE MD ADMIT DATE: 07/22/22/ICU Signed Date of Exam:07/23/22 CHEST 1 VIEW, AP/PA ONLY Indication: Congestive heart failure and dyspnea Portable AP view of the chest is obtained with comparison made to study of one day earlier. Probable interstitial edema and venous congestion are similar to previous study with increasing pleural fluid, greater on the right. No pneumothorax is identified. IMPRESSION: Interstitial edema and/or pneumonitis has shown mild worsening when compared to previous study with an increase in pleural fluid, greater on the right. Dictated by: Dictated on workstation # [id number] Dict: 07/23/22 0639 Trans: 07/23/22 0802 [facility] [id number] Interpreted by: OCTAVIO BONE MD Electronically signed by: OCTAVIO BONE MD 07/23/22 0802 Assessment/Plan Assessment/Plan Reason for Inpatient Admission: Patient admitted for respiratory failure with hypercapnia and hypoxia, acute on chronic heart failure, COPD exacerbation, and hypertensive emergency. Assessment & Plan Acute on chronic respiratory failure with hypoxia and hypercapnia Pulmonary edema: - 40 mg furosemide IVP qday CHF: - Cardiology consulted for a new CHF diagnosis. - BNP elevated - 40 mg furosemide IVP qday, metoprolol 50 mg qday COPD: - Chest CT showed advanced emphysematous changes. - BIPAP machine, 2 L of oxygen, budesonide-formoterol, albuterol sulfate. Pulmonary hypertension / Elevated D-dimer / History of PVD - ECHO done 07/23 showed severe pulmonary hypertension - V/Q scan showed intermediate to high likelihood of a PE - Chest CT indicated pulmonary mass less likely than emphysema - enoxaparin 60 mg qday and aspirin for DVT prophylaxis Acute renal failure. - Patient has a history of CKD - GFR 41 (up from 34 yesterday), Cr 1.70 (down from 1.79 yesterday) - Will continue to monitor renal function because of diuretic use. Hypertensive emergency: - BP 158/85, consistent with past few days - nitro drip placed in the ER - 40 mg of furosemide qday, 50 mg of metroprolol qday Cholecystolithiasis Because of patient's severe pulmonary hypertension and other PE risk factors, a PE workup was initiated. A V/Q scan showed an "intermediate to high" likelihood of a PE and recommended a CTA. This patient's renal function does not permit a CTA, so a chest CT was done instead. This imaging indicated that a pulmonary mass was "less likely" than other changes. Will keep the patient on enoxaparin as tolerated. Will also the patient on furosemide and while monitoring renal function, and evaluate for discharge tomorrow. SOLO JEAN-BAPTISTE MD 07/24/221913: Subjective Review of Systems Pulmonary: Dyspnea, Cough Cardiovascular: No: Chest Pain, Palpitations Gastrointestinal: No: Nausea, Vomiting, Abdominal Pain Neurological: Weakness, Incoordination Objective Exam General: Alert, Oriented X3, No Acute Distress Lungs: Other (basilar wheezing, normal work of breathing) Heart: Regular Rate, No Murmurs Abdomen: Normal Bowel Sounds, Soft, No Tenderness Extremities: No Edema, No Tenderness/Swelling Neuro: Normal Speech Supervisory-Addendum Brief Verification & Attestation Participated in pt care: history, physical Personally performed: exam, history Care discussed with: Medical Student Procedures: n/a Verification and Attestation of Medical Student E/M Service A medical student performed and documented this service in my presence. I reviewed and verified all information documented by the medical student and made modifications to such information, when appropriate. I personally performed the physical exam and medical decision making. Solo Jean-Baptiste, Jul 24, 2022,19:16 Acute on Chronic Respiratory Failure with hypoxia and hypercarbia Pulmonary Edema COPD Exacerbation High Risk for Pulmonary Embolism - Patient started on bipap, MAT protocol and breathing treatments, IV steroids - He was able to titrate to NC shortly after arrival to hosp - Possible new home oxygen need at discharge, will monitor - 07/23: Will need new oxygen order at discharge, improved today, Echo showed severe pulm HTN, V/Q scan ordered and lovenox changed to treatment dosing -07/24: V/Q with high risk of PE, radiology recommended CT w/o contrast to evaluate lung contreras, Will start Eliquis for treatment Hypertensive Emergency - Nitro drip started in ER - Will restart home meds - 07/24: Resolved, continue home meds Acute systolic/Diastolic Heart Failure Elevated BNP Pulmonary edema - Cardiology consulted for new diagnosis of CHF - Echo ordered and pending - S/p Lasix 80 mg in ER, schedule 40 mg Lasix in AM - 07/23: Dr Ojeda ordered lasix 40 mg BID, monitor Cr due to increasing BUN/ Cr Acute Renal Failure - Unknown baseline, monitor closely due to diuresis Tobacco Dependence - Quit in April, continue to focus on cessation Elevated D-Dimer - V/Q Scan ordered Cachexia DVT Px: Lovenox treatment/Renal dosing Discharge Planning: Patient declines SNF, would be willing to have HH, plan for d/c home tomorrow with VIRIDIANA CARRASCO Jul 24, 2022 13:28 SOLO JEAN-BAPTISTE MD Jul 24, 2022 19:14
--- NOTE | 2022-07-24 15:09 | Diagnostic Imaging Report ---
PROCEDURE: CT chest without contrast. TECHNIQUE: Multiple contiguous axial images were obtained through the chest without the use of intravenous contrast. Auto Exposure Controls were utilized during the CT exam to meet ALARA standards for radiation dose reduction. INDICATION: 76-year-old male, severe pulmonary hypertension. Congestive heart failure, dyspnea, shortness of breath. CORRELATION STUDY: Chest radiograph 07/23/2022. FINDINGS: Heart size borderline enlarged with trace anterior pericardial effusion. Scattered coronary artery calcification. There is prominence of the ascending aorta up to 4.1 cm. A few mildly prominent, but what appear to be likely non-pathologically enlarged, mediastinal lymph nodes. Minimal wall thickening at the GE junction. Moderate right and small to moderate left pleural effusions are present, layering dependently. There is advanced emphysematous change about the lung parenchyma. Bibasilar areas of likely minimal compressive atelectasis. More focal consolidation in the subpleural region of right lower lobe favors probable rounded atelectasis versus less likely consolidation of pneumonia and/or mass. Additional smaller area that is slightly more anteriorly and laterally in the right lower lobe as well. No significant abnormal interstitial thickening to suggest an interstitial edema. There is an abnormal appearance about the gallbladder which appears to be thick walled with probable multiple gallstones. Round prominent calcification in visualized abdominal aorta in the upper abdomen. Chronic dissection questioned. There is what appears to be asymmetric atrophic changes of the left kidney compared to the right kidney. Exophytic mass of right kidney incompletely characterized favors probable cyst. IMPRESSION: 1. Small to moderate bilateral pleural effusions, right slightly greater than left. Associated adjacent compressive atelectasis. 2. Advanced centrilobular emphysematous changes of the lung parenchyma. Likely rounded atelectasis and/or less likely consolidation in the right lower lobe. Mass is considered less likely but should undergo follow-up imaging to document stability and/or resolution. 3. Limited abnormal appearance of the partially visualized gallbladder which appears to be abnormally thick-walled with multiple gallstones. 4. Correlation with abdominal ultrasound is recommended. Dictated by: Dictated on workstation # [id number]
[2022-07-24 15:41] VITALS: BP 158/86
--- NOTE | 2022-07-24 16:37 | Progress Note - Cardiology ---
Cardiology SOAP Progress Note Subjective: Shortness of breath and malaise are somewhat improved No cp or palp or syncope Leg swelling better Gen weakness No n/v/d Wishes to go home Refuses to stay in the hosp any longer Objective: I&O/Vital Signs 07/24/22 07/24/22 07/24/22 07/24/22 07:12 07:14 07:58 08:00 Temp 37.2 Pulse 95 88 Resp 18 B/P (MAP) 155/75 (101) Pulse Ox 90 90 O2 Delivery Nasal Cannula Nasal Cannula Nasal Cannula O2 Flow Rate 3.00 2.00 2.00 07/24/22 07/24/22 07/24/22 07/24/22 11:36 11:36 13:30 15:41 Temp 37.3 37.4 Pulse 155 88 164 78 Resp 19 18 B/P (MAP) 162/84 (110) 158/86 (110) Pulse Ox 93 93 O2 Delivery Nasal Cannula Nasal Cannula O2 Flow Rate 3.00 2.00 07/24/22 00:00 Intake Total 120 ml Output Total 700 ml Balance -580 ml Constitutional: AAO x 3, other (thin) Respiratory: No accessory muscle use, No respiratory distress, No chest expansion is symmetric, No chest is bilaterally symmetric; rhonchi (scattered, prolonged exp phase), other (coarse breath sounds; dyspneic with conversation; diminished lower lobes bilat) Cardiovascular: regular rate-rhythm; No JVD; S1 and S2 Gastrointestional: No tender; soft, round, audible bowel sounds Extremities: no lower extremity edema bilateral Neurologic/Psychiatric: other (moves all limbs equally) Skin: other (mutiple bruising to bilat upper and lower extremities) Results/Procedures: Labs Laboratory Tests 07/24/22 05:30: White Blood Count 13.0H, Red Blood Count 4.63, Hemoglobin 14.7, Hematocrit 44, Mean Corpuscular Volume 95, Mean Corpuscular Hemoglobin 32, Mean Corpuscular Hemoglobin Concent 33, Red Cell Distribution Width 14.6H, Platelet Count 205, Mean Platelet Volume 9.7, Immature Granulocyte % (Auto) 1, Neutrophils (%) (Auto) 81H, Lymphocytes (%) (Auto) 8L, Monocytes (%) (Auto) 10, Eosinophils (%) (Auto) 0, Basophils (%) (Auto) 0, Neutrophils # (Auto) 10.5H, Lymphocytes # (Auto) 1.0, Monocytes # (Auto) 1.3H, Eosinophils # (Auto) 0.0, Basophils # (Auto) 0.0, Immature Granulocyte # (Auto) 0.1, Neutrophils % (Manual) 88, Lymphocytes % (Manual) 5, Monocytes % (Manual) 7, Blood Morphology Comment NORMAL, Sodium Level 142, Potassium Level 3.7, Chloride Level 100, Carbon Dioxide Level 30, Anion Gap 12, Blood Urea Nitrogen 28H, Creatinine 1.70H, Estimat Glomerular Filtration Rate 41, BUN/Creatinine Ratio 16, Glucose Level 109H, Calcium Level 8.8, Phosphorus Level 2.3, Magnesium Level 1.8 Microbiology 07/22/22 Blood Culture - Preliminary, Resulted No growth Laboratory Tests 07/23/22 04:35 07/24/22 05:30 A/P: Assessment: Progressive dyspnea, multi-factorial - acute on chronic exacerbation of COPD - acute systolic and diastolic CHF - severe pulmonary HTN Acute systolic/diastolic CHF - Echocardiogram of 07-23-22 shows LVEF 40-45% with grade 1 diastolic dysfunction. Mild MR. Severe pulmonary hypertension - PASP 95-100 mmHg on echocardiogram of 07-23-22 Renal insufficiency - undetermined length of time, prob chronic - not suitable for ARB or ERENDIRA-inhib due to renal failure Uncontrolled HTN - start BB tx Adv COPD - reports PRN oxygen H/O tobaccoism - quit in April 2022 Plan: Progressive multi-factorial dyspnea for reasons noted above Acute on chronic exacerbation of COPD - management per medical services Severe pulmonary HTN CHF - treat with diuretics as indicated/tolerated Renal insufficiency - probable CKD - monitor lab closely - renal function improved today Uncontrolled HTN with sinus tachycardia - improved, but not ideal - increase BB Monitor lab closely - replace electrolytes as indicated Insists on going home. Has not reached full benefit of hospitalization. Advised continuing hospitalization. He did not agree. Card meds written. Repeat labs and cardiac f/u advised for early next week. He understands JEANNIE SORIA MD FACP FAC CCDS Jul 24, 2022 16:36
[2022-07-24 19:35] VITALS: BP 160/80
[2022-07-24 23:34] VITALS: BP 155/97
[2022-07-25] MEDS: RT-ALBUTEROL/IPRATROPIUM 3 ML (DUONEB) VIAL INH SCH ×3 (03:01→10:44)
[2022-07-25 03:33] VITALS: BP 165/96
[2022-07-25] MEDS: DOXYCYCLINE 100 MG (VIBRAMYCIN) TABLET PO SCH (05:28)
[2022-07-25] MEDS: CATHETER FLUSH 10 ML SYR IVP SCH (05:29)
[2022-07-25 05:37] LABS: BASOPHILS % (AUTO) 0 % (0-10); EOSINOPHILS % (AUTO) 0 % (0-10); HEMATOCRIT 47 % (40-54); HEMOGLOBIN 15.8 g/dL (13.3-17.7); LYMPHOCYTES # (AUTO) 0.7 10^3/uL (1.0-4.0); LYMPHOCYTES % (AUTO) 5 % (12-44); MEAN CORPUSCULAR HEMOGLOBIN 32 pg (25-34); MEAN CORPUSCULAR HGB CONC 34 g/dL (32-36); MEAN CORPUSCULAR VOLUME 94 fL (80-99); MEAN PLATELET VOLUME 9.7 fL (9.0-12.2); MONOCYTES % (AUTO) 8 % (0-12); NEUTROPHILS # (AUTO) 11.4 10^3/uL (1.8-7.8); NEUTROPHILS % (AUTO) 87 % (42-75); PLATELET COUNT 214 10^3/uL (130-400); WHITE BLOOD COUNT 13.1 10^3/uL (4.3-11.0)
[2022-07-25 05:57] LABS: CREATININE SERUM 1.72 MG/DL (0.60-1.30); MAGNESIUM 1.8 MG/DL (1.6-2.4); PHOSPHORUS 2.9 MG/DL (2.3-4.7); POTASSIUM 3.5 MMOL/L (3.6-5.0)
[2022-07-25] MEDS: RT--FLUTICASONE/SALMETEROL 113-14 (AIRDUO RespiCLICK) IH SCH (07:23)
[2022-07-25 08:50] VITALS: BP 143/97
--- NOTE | 2022-07-25 08:58 | Physical Therapy Daily Note ---
PT Daily Note-Current Subjective Patient agrees to PT. He states, "I just want to get out of here." Mental Status Patient Orientation: Normal For Age Attachments: Oxygen, Ramachandran Catheter Transfers SCALE: Activities may be completed with or without assistive devices. 9-Jsaawnxvxy-lqfikkp completes the activity by him/herself with no assistance from a helper. 5-Set-up or Clean-up Assistance-helper sets up or cleans up; patient completes activity. [place] assists only prior to or following the activity. 4-Supervision or Touching Assistance-helper provides verbal cues and/or touching/steadying and/or contact guard assistance as patient completes activity. Assistance may be provided throughout the activity or intermittently. 3-Partial/Moderate Assistance-helper does LESS THAN HALF the effort. [place] lifts, holds or supports trunk or limbs, but provides less than half the effort. 2-Substantial/Maximal Assistance-helper does MORE THAN HALF the effort. [place] lifts or holds trunk or limbs and provides more than half the effort. 1-Irifrpbkv-ukjrzq does ALL the effort. Patient does none of the effort to complete the activity. Or, the assistance of 2 or more helpers is required for the patient to complete the activity. If activity was not attempted, code reason: 7-Patient Refused. 9-Not Applicable-not attempted and the patient did not perform the activity before the current illness, exacerbation or injury. 10-Not Attempted due to Environmental Limitations-(lack of equipment, weather restraints, etc.). 88-Not Attempted due to Medical Conditions or Safety Concerns. Lying to Sitting/Side of Bed(Q: 6 Sit to Stand (QC): 6 Chair/Icl-hu-Ctnca Xfer(QC): 6 Gait Training Distance: 400' Walk 10 feet (QC): 5 Walk 50 ft with 2 Turns(QC): 5 Walk 150 ft (QC): 5 Gait Assistive Device: FWW continued NBOS with ambulation Assessment Patient up in recliner with needs met. Patient continues to state he wants to go home today. PT Mold Clamper Goals Senior Living Goals PT Senior Living Goals Time Frame: Aug 09, 2022 Roll Left & Right (QC): 6 Sit to Lying (QC): 6 Lying-Sitting on Side/Bed(QC): 6 Sit to Stand (QC): 6 Chair/Gav-yl-Qwwvt Xfer(QC): 6 Toilet Transfer (QC): 6 Walk 10 feet (QC): 6 Walk 50ft with 2 Turns (QC): 6 Walk 150 ft (QC): 6 PT Plan Treatment/Plan Treatment Plan: Continue Plan of Care Treatment Plan: Education, Functional Activity Jen, Functional Strength, Gait, Safety, Therapeutic Exercise, Transfers Treatment Duration: Aug 09, 2022 Frequency: 6 times per week Estimated Hrs Per Day: .25 hour per day Patient and/or Family Agrees t: Yes Time/GCodes Time In: 835 Time Out: 846 Total Billed Treatment Time: 11 Total Billed Treatment 1 visit FA 11 min SHANE ORDONEZ PT Jul 25, 2022 08:58
[2022-07-25] MEDS ORDERED: meTOprolol SUCCINATE 100 MG (TOPROL XL) TAB PO SCH (09:00)
[2022-07-25] MEDS ORDERED: APIXABAN 5 MG (ELIQUIS) TABLET PO SCH (09:00)
[2022-07-25] MEDS: ASPIRIN 81 MG CHEW (CHILDREN'S ASA) PO SCH (09:01)
[2022-07-25] MEDS: FUROSEMIDE 40 MG/4 ML INJ (LASIX) IVP SCH (09:02)
--- NOTE | 2022-07-25 10:18 | Discharge Summary ---
Discharge Summary Reconcile Patient Problems Problems Reviewed?: Yes Instructions for Patient [employer], Assessment/Instructions Acute on Chronic Respiratory Failure with hypoxia and hypercarbia Pulmonary Edema COPD Exacerbation Severe Emphysema High Risk for PE - Patient started on bipap, MAT protocol and breathing treatments, IV steroids - He was able to titrate to NC shortly after arrival to hosp - Possible new home oxygen need at discharge, will monitor - 07/23: Will need new oxygen order at discharge, improved today, Echo showed severe pulm HTN, V/Q scan ordered and lovenox changed to treatment dosing - 07/25: Started on Eliquis Hypertensive Emergency - Nitro drip started in ER - Will restart home meds Acute systolic/Diastolic Heart Failure Elevated BNP Pulmonary edema - Cardiology consulted for new diagnosis of CHF - Echo ordered and pending - S/p Lasix 80 mg in ER, schedule 40 mg Lasix in AM - 07/23: Dr Ojeda ordered lasix 40 mg BID, monitor Cr due to increasing BUN/Cr Acute Renal Failure - Unknown baseline, monitor closely due to diuresis -07/25 Patient likely has CKD unknown Cr baseline, will need close f.u with Dr Osborne Gall bladder thickening -07/25: Will need outpatient f.u Tobacco Dependence - Quit in April, continue to focus on cessation Elevated D-Dimer - V/Q Scan ordered - 07/25: High risk for PE, will start OAC Cachexia Physician to follow Patient: Dr Osborne Discharge Diet for Home: Cardiac Diet Hospital Course Date of Admission: Jul 22, 2022 at 12:52 Admission Diagnosis : Family Physician/Provider: Cristhian Osborne MD Date of Discharge: 07/25/22 Discharge Diagnosis: See above Hospital Course: See Above Labs and Pending Lab Test: Laboratory Tests 07/25/22 05:27: White Blood Count 13.1H, Red Blood Count 4.99, Hemoglobin 15.8, Hematocrit 47, Mean Corpuscular Volume 94, Mean Corpuscular Hemoglobin 32, Mean Corpuscular Hemoglobin Concent 34, Red Cell Distribution Width 14.4, Platelet Count 214, Mean Platelet Volume 9.7, Immature Granulocyte % (Auto) 0, Neutrophils (%) (Auto) 87H, Lymphocytes (%) (Auto) 5L, Monocytes (%) (Auto) 8, Eosinophils (%) (Auto) 0, Basophils (%) (Auto) 0, Neutrophils # (Auto) 11.4H, Lymphocytes # ( Auto) 0.7L, Monocytes # (Auto) 1.0, Eosinophils # (Auto) 0.0, Basophils # (Auto) 0.0, Immature Granulocyte # (Auto) 0.0, Sodium Level 143, Potassium Level 3.5L, Chloride Level 96L, Carbon Dioxide Level 30, Anion Gap 17H, Blood Urea Nitrogen 32H, Creatinine 1.72H, Estimat Glomerular Filtration Rate 40, BUN/Creatinine Ratio 19, Glucose Level 122H, Calcium Level 9.0, Phosphorus Level 2.9, Magnesium Level 1.8 Microbiology 07/22/22 Blood Culture - Preliminary, Resulted No growth Home Meds Active Potassium Chloride 10 Meq Capsule.er 10 Meq PO Q48H Lasix (Furosemide) 40 Mg Tablet 40 Mg PO Q48H Children's Aspirin (Aspirin) 81 Mg Tab.chew 81 Mg PO DAILY Metoprolol Succinate 100 Mg Tab.er.24h 100 Mg PO DAILY Patient Allergies: Coded Allergies: No Known Drug Allergies (Unverified , 07/22/22) Home Health Need/Face to Face Date of Face to Face: Jul 25, 2022 Clinical Findings: Generalized weakness and fatigue, Muscle weakness, Shortness of breath, Unsteady gait I have seen Pt [id number]: Yes Discharged To: Home Diagnosis/Conditions: See Above Patient is Homebound due to: Abbe fall risk due to instabilty, Muscle weakness Homebound Status Due to the above stated illness, injury or surgical procedure (medical condition or diagnosis) and associated clinical findings, the patient is homebound because of his/her inability to leave home except with aid of a supportive device and/or person AND leaving the home requires a considerable and taxing effort or is medically contraindicated. Pt req the following assistanc: Aid of another person, [facility] Home Health Nursing Orders Home Health Services Order: Nursing Services, [facility]-Evaluate & Treat, Physical Therapy-Evaluate & Treat Review meds as these are all new medications Discussed bleed precautions as patient is a new eliquis patient Home Health Infusion Therapy Line Start Date: Jul 22, 2022 Therapy Orders Therapy Orders: PT to assess for OT Therapy Specific Orders: Teach enviro modifications/safety, Gait training, Increase strength/endurance Certify Stmt I certify that this patient is under my care and that I, a nurse practitioner or a physician; a print shop assistant working with me, had a face to face encounter that - meets the physician face to face encounter requirements with this patient as dated. Discharge Physical Exam General: Alert, Oriented X3, Cooperative, No Acute Distress Lungs: Normal Air Movement, Other (Diffuse wheezing, normal work of breathing at baseline) Heart: Regular Rate, No Murmurs Abdomen: Normal Bowel Sounds, Soft, No Tenderness Extremities: No Edema, No Tenderness/Swelling Neuro: Normal Speech Psych/Mental Status: Mental Status NL, Other (depressed affect) SOLO JEAN-BAPTISTE MD Jul 25, 2022 10:16
--- NOTE | 2022-07-25 10:38 | Progress Note ---
Subjective Subjective/Events-last exam Patient admitted on 07/22 for respiratory failure with hypercapnia, acute on chronic heart failure, COPD exacerbation and hypertensive emergency after a visit to the ER for severe shortness of breath. He has not had shortness of breath since admission apart from morning, during which he has had some difficulty breathing during exertion (standing up to up to use the bathroom with assistance). He says his "breathing is fine" during rest. He denies chest pain, GI disturbances, headache, dizziness, and changes in vision and hearing. He is anxious to be discharged, but otherwise has no significant complaints. Focused Exam Lactate Level 07/22/22 10:30: Lactic Acid Level 3.14*H 07/22/22 13:55: Lactic Acid Level 1.59 Objective Exam Last Set of Vital Signs Vital Signs Date Time Temp Pulse Resp B/P (MAP) Pulse Ox O2 Delivery O2 Flow Rate FiO2 07/25/22 08:50 37.4 107 20 143/97 (112) 94 Nasal Cannula 2.00 07/22/22 13:38 100 Capillary Refill : Less Than 3 Seconds I&O Intake and Output 07/25/22 00:00 Intake Total 890 ml Output Total 3850 ml Balance -2960 ml Intake Oral 890 ml Output Urine Total 3850 ml General: Alert, Oriented X3, Other (fatigued relative to previous days, depressed affect) Lungs: Normal Air Movement, Other (mild crackles bilaterally) Heart: Regular Rate, Normal S1, Normal S2, No Murmurs Abdomen: Normal Bowel Sounds, No Tenderness, No Masses Extremities: Normal Pulses, Other (atrophy of calves) Neuro: Sensation Intact, Other (generalized weakness, unable to stand up and sit without assistance ) Psych/Mental Status: Mental Status NL Results/Procedures Lab Laboratory Tests 07/25/22 05:27: White Blood Count 13.1H, Red Blood Count 4.99, Hemoglobin 15.8, Hematocrit 47, Mean Corpuscular Volume 94, Mean Corpuscular Hemoglobin 32, Mean Corpuscular Hemoglobin Concent 34, Red Cell Distribution Width 14.4, Platelet Count 214, Mean Platelet Volume 9.7, Immature Granulocyte % (Auto) 0, Neutrophils (%) (Auto) 87H, Lymphocytes (%) (Auto) 5L, Monocytes (%) (Auto) 8, Eosinophils (%) (Auto) 0, Basophils (%) (Auto) 0, Neutrophils # (Auto) 11.4H, Lymphocytes # (Auto) 0.7L, Monocytes # (Auto) 1.0, Eosinophils # (Auto) 0.0, Basophils # (Auto) 0.0, Immature Granulocyte # (Auto) 0.0, Sodium Level 143, Potassium Level 3.5L, Chloride Level 96L, Carbon Dioxide Level 30, Anion Gap 17H, Blood Urea Nitrogen 32H, Creatinine 1.72H, Estimat Glomerular Filtration Rate 40, BUN/Creatinine Ratio 19, Glucose Level 122H, Calcium Level 9.0, Phosphorus Level 2.9, Magnesium Level 1.8 Microbiology 07/22/22 Blood Culture - Preliminary, Resulted No growth Radiology NAME: JUDIT WILDE [facility] REC#: [id number] PT STATUS: ADM IN : 1945 PHYSICIAN: SOLO JEAN-BAPTISTE MD ADMIT DATE: 07/22/22/ICU Signed Date of Exam:07/23/22 CHEST 1 VIEW, AP/PA ONLY Indication: Congestive heart failure and dyspnea Portable AP view of the chest is obtained with comparison made to study of one day earlier. Probable interstitial edema and venous congestion are similar to previous study with increasing pleural fluid, greater on the right. No pneumothorax is identified. IMPRESSION: Interstitial edema and/or pneumonitis has shown mild worsening when compared to previous study with an increase in pleural fluid, greater on the right. Dictated by: Dictated on workstation # [id number] Dict: 07/23/22 0639 Trans: 07/23/22 08 [facility] [id number] Interpreted by: OCTAVIO BONE MD Electronically signed by: OCTAVIO BONE MD 07/23/22 0802 Assessment/Plan Assessment/Plan Reason for Inpatient Admission: Patient admitted for respiratory failure with hypercapnia and hypoxia, acute on chronic heart failure, COPD exacerbation, and hypertensive emergency. Assessment & Plan Acute on chronic respiratory failure with hypoxia and hypercapnia COPD exacerbation - on BIPAP machine and 2 L of oxygen during stay. - will be discharged with new oxygen and inhalers Pulmonary hypertension Elevated D-dimer History of PVD - 07/23: ECHO showed severe pulmonary HTN, V/Q scan showed intermediate - high likelihood of a PE. - on enoxaparin for DVT / PE prophylaxis during stay. - will be discharged with apixiban. Pulmonary edema Acute systolic / diastolic CHF Elevated BNP - 40 mg furosemide IVP qday during stay. - will be discharged with furosemide and metoprolol Hypertensive emergency: - nitro drip placed in the ER - resolved as of 07/24 - will be discharged with metoprolol and furosemide. Acute renal failure. History of CKD - decline during stay secondary to diuresis. - 07/25: GFR of 40 up from ankita of 34 (07/23) Discharge plan: Patient to be discharged today with home health. New medications will be explained. Patient instructed to seek care in the case of an another episode of shortness of breath. VIRIDIANA ORTEGA Jul 25, 2022 10:38
[2022-07-25 12:54] VITALS: BP 143/97
--- NOTE | 2022-07-25 14:54 | Progress Note - Cardiology ---
Cardiology SOAP Progress Note Subjective: No cp or palp or syncope Shortness of breath improved No focal weakness No n/v/d Wishes to go home Objective: I&O/Vital Signs 07/25/22 07/25/22 07/25/22 07/25/22 03:01 03:33 07:00 07:24 Temp 37.6 Pulse 88 101 Resp 18 B/P (MAP) 165/96 (119) Pulse Ox 91 93 94 O2 Delivery Nasal Cannula Nasal Cannula Nasal Cannula O2 Flow Rate 2.00 2.00 2.00 07/25/22 07/25/22 07/25/22 07/25/22 08:00 08:50 10:45 12:42 Temp 37.4 Pulse 107 134 Resp 20 B/P (MAP) 143/97 (112) Pulse Ox 94 95 O2 Delivery Nasal Cannula Nasal Cannula Nasal Cannula O2 Flow Rate 2.00 2.00 2.00 07/25/22 12:54 Temp 37.4 Pulse 134 Resp 20 B/P (MAP) 143/97 Pulse Ox 95 O2 Delivery Nasal Cannula O2 Flow Rate 2.00 FiO2 100 07/25/22 00:00 Intake Total 450 ml Output Total 1700 ml Balance -1250 ml Constitutional: AAO x 3, other (thin) Respiratory: No accessory muscle use, No respiratory distress, No chest expansion is symmetric, No chest is bilaterally symmetric; rhonchi (scattered, prolonged exp phase), other (coarse breath sounds; dyspneic with conversation; diminished lower lobes bilat) Cardiovascular: regular rate-rhythm; No JVD; S1 and S2 Gastrointestional: No tender; soft, round, audible bowel sounds Extremities: no lower extremity edema bilateral Neurologic/Psychiatric: other (moves all limbs equally) Skin: other (mutiple bruising to bilat upper and lower extremities) Results/Procedures: Labs Laboratory Tests 07/25/22 05:27: White Blood Count 13.1H, Red Blood Count 4.99, Hemoglobin 15.8, Hematocrit 47, Mean Corpuscular Volume 94, Mean Corpuscular Hemoglobin 32, Mean Corpuscular Hemoglobin Concent 34, Red Cell Distribution Width 14.4, Platelet Count 214, Mean Platelet Volume 9.7, Immature Granulocyte % (Auto) 0, Neutrophils (%) (Auto) 87H, Lymphocytes (%) (Auto) 5L, Monocytes (%) (Auto) 8, Eosinophils (%) (Auto) 0, Basophils (%) (Auto) 0, Neutrophils # (Auto) 11.4H, Lymphocytes # (Auto) 0.7L, Monocytes # (Auto) 1.0, Eosinophils # (Auto) 0.0, Basophils # (Auto) 0.0, Immature Granulocyte # (Auto) 0.0, Sodium Level 143, Potassium Level 3.5L, Chloride Level 96L, Carbon Dioxide Level 30, Anion Gap 17H, Blood Urea Nitrogen 32H, Creatinine 1.72H, Estimat Glomerular Filtration Rate 40, BUN/Creatinine Ratio 19, Glucose Level 122H, Calcium Level 9.0, Phosphorus Level 2.9, Magnesium Level 1.8 Microbiology 07/22/22 Blood Culture - Preliminary, Resulted No growth Laboratory Tests 07/24/22 05:30 07/25/22 05:27 A/P: Assessment: Progressive dyspnea, multi-factorial - acute on chronic exacerbation of COPD - acute systolic and diastolic CHF - severe pulmonary HTN Acute systolic/diastolic CHF - Echocardiogram of 07-23-22 shows LVEF 40-45% with grade 1 diastolic dysfunction. Mild MR. Severe pulmonary hypertension - PASP 95-100 mmHg on echocardiogram of 07-23-22 Renal insufficiency - undetermined length of time, prob chronic - not suitable for ARB or ERENDIRA-inhib due to renal failure Uncontrolled HTN - start BB tx Adv COPD - reports PRN oxygen H/O tobaccoism - quit in April 2022 Plan: Advised to avoid tobacco Continue current management of CHF Advised close outpt f/u with Med and Card services JEANNIE SORIA MD FACP FAC CCDS Jul 25, 2022 14:54
[2022-08-01] MEDS ORDERED: APIXABAN 5 MG (ELIQUIS) TABLET PO SCH (09:00)
== END 2022-07-25 13:02 | disposition home health service (06) | DRG 291 ==
LOC: EDUNIT# 10:14 → ER FS 10:15 → ICU 12:52 → 4TH 07-23 13:18
PROVIDERS: ADMIT Family Medicine; ATTEND Family Medicine
PROC: 5A09357 Assistance with Respiratory Ventilation, Less than 24 Consecutive Hours, Continuous Positive Airway Pressure (ICD-10-PCS; principal; 2022-07-22)
DX: I13.0 Hypertensive heart and chronic kidney disease with heart failure and stage 1 through stage 4 chronic kidney disease, or unspecified chronic kidney disease (principal); J96.21 Acute and chronic respiratory failure with hypoxia; I50.41 Acute combined systolic (congestive) and diastolic (congestive) heart failure; J96.22 Acute and chronic respiratory failure with hypercapnia; I16.1 Hypertensive emergency; N17.9 Acute kidney failure, unspecified; R64 Cachexia; Z68.1 Body mass index [BMI] 19.9 or less, adult; J43.9 Emphysema, unspecified; N18.32 Chronic kidney disease, stage 3b; Z20.822 Contact with and (suspected) exposure to COVID-19; I27.20 Pulmonary hypertension, unspecified; D72.829 Elevated white blood cell count, unspecified; Z87.891 Personal history of nicotine dependence; K80.20 Calculus of gallbladder without cholecystitis without obstruction; I73.9 Peripheral vascular disease, unspecified
CPT/HCPCS: 36415; 51702; 71045; 71250; 80048; 80053; 81000; 82805; 82947; 83605; 83735; 83880; 84100; 84145; 84484; 85007; 85025; 85027; 85379; 85610; 86141; 87040; 87636; 93005; 93041; 93306; 94640; 94660; 94760; 94761; 99291

== ENCOUNTER 2022-09-04 11:41 | Emergency (ER) | payer SELFPAY ==
[~2022-09-04 11:41] MED LIST: ASPI81TA64 PO; FURO-124 PO; MTP100TCR PO; POTA10CA43 PO
[2022-09-04] MEDS ORDERED: RT-ALBUTEROL/IPRATROPIUM 3 ML (DUONEB) VIAL INH STA (11:56)
--- NOTE | 2022-09-04 12:03 | ED Dyspnea ---
General Chief Complaint: Respiratory Problems Stated Complaint: SOB Nursing Triage Note: PT REPORTS HE WAS SHORT OF BREATH YESTERDAY AND STARTED FEELING IT AGAIN TODAY. HX OF COPD. Source of Information: Patient, Old Records History of Present Illness Date Seen by Provider: Sep 04, 2022 Time Seen by Provider: 11:44 Initial Comments 76 yo male presenting with complaint of increased shortness of breath yesterday and today. He has COPD and is on home oxygen at 2 Lpm. He recently was here and admitted to [facility] with COPD exacerbation, acute on chronic respiratory failure, risk for PE, renal failure, systolic and diastolic CHF with echocardiogam done [facility] 07/22-07/25 that showed EF 40-50% with d iastolic dysfunction and pulmonary hypertension. He was concerned when he had episode yesterday of getting more short of breath. He was worried that his symptoms were flaring up again. He had called over to see Dr. Osborne and was advised by Dr. Osborne's nurse that patient just come to the emergency department. He states that he is now feeling more short of breath than usual at the moment but he was worried that it might flareup like it did yesterday or back in June. He denies having any swelling in his legs or extremities. He has not had increased cough or sputum production. He denies fever, chills, nausea, vomiting. Timing/Duration: Waxing and Waning Severity: Moderate Activities at Onset: None Prior Episodes/Possible Cause: Chronic Episodes, Frequent Episodes Modifying Factors: Worse With Activity; Improves With Oxygen, Improves With Rest Associated Symptoms: Anxiety, Wheezing Allergies and Home Medications Allergies Coded Allergies: No Known Drug Allergies (Unverified , 07/22/22) Patient Home Medication List Home Medication List Reviewed: Yes Aspirin (Children's Aspirin) 81 Mg Tab.chew, 81 MG PO DAILY Prescribed by: BRICE DEWEY on 07/24/22 09 Azithromycin (Azithromycin) 250 Mg Tablet, 250 MG PO UD Prescribed by: NICHOLE DUMONT on 09/04/22 1222 Furosemide (Lasix) 40 Mg Tablet, 40 MG PO Q48H Prescribed by: BRICE DEWEY on 07/24/22 09 Metoprolol Succinate (Metoprolol Succinate) 100 Mg Tab.er.24h, 100 MG PO DAILY Prescribed by: BRICE DEWEY on 07/24/22956 Potassium Chloride (Potassium Chloride) 10 Meq Capsule.er, 10 MEQ PO Q48H Prescribed by: BRICE DEWEY on 07/24/22 0957 Prednisone (Prednisone) 20 Mg Tab, 40 MG PO DAILY Prescribed by: NICHOLE DUMONT on 09/04/22 1222 Review of Systems Review of Systems Constitutional: No chills, No dizziness, No fever EENTM: No ear discharge, No ear pain, No vision loss, No epistaxis, No nose congestion Respiratory: No cough; dyspnea on exertion; No hemoptysis; short of breath; No stridor; wheezing Cardiovascular: No chest pain, No edema, No palpitations Gastrointestinal: No nausea, No vomiting Genitourinary: No dysuria Musculoskeletal: no symptoms reported Skin: other (Superficial abrasion on his right knee. Multiple areas of bruising in various stages of healing on his legs and arms) Psychiatric/Neurological: Anxiety Endocrine: No Symptoms Reported Hematologic/Lymphatic: Easy Bleeding, Easy Bruising Past [id number]-Swvccg Hx Patient Social History Tobacco Use?: Yes Tobacco type used: Cigarettes Smoking Status: Former Smoker Use of E-Cig and/or Vaping dev: No Substance use?: No Alcohol Use?: No Pt feels they are or have been: No Past Medical History Surgery/Hospitalization HX: COPD, combined systolic and diastolic CHF, chronic renal failure, history of tobacco. Physical Exam Vital Signs Vital Signs - First Documented Capillary Refill : Less Than 3 Seconds Height, Weight, BMI Height: '" Weight: lbs. oz. kg; 16.81 BMI Method: General Appearance: Chronically ill, Mild Distress HEENT: PERRL/EOMI, Pharynx Normal Neck: Full Range of Motion, Normal Inspection, Non Tender, Supple Respiratory: Chest Non Tender, No Respiratory Distress, Accessory Muscle Use, Decreased Breath Sounds (Bilateral bases worse than the rest of his lungs), Wheezing Cardiovascular: Regular Rate, Rhythm, Normal Peripheral Pulses Gastrointestinal: Normal Bowel Sounds, No Pulsatile Mass, Non Tender, Soft Rectal: Deferred Extremity: Normal Capillary Refill, No Calf Tenderness, No Pedal Edema, Other (Multiple areas of bruising on his legs and arms in various stages of healing) Neurologic/Psychiatric: Alert, Oriented x3, basket filler II-XII Norm as Tested Skin: Warm/Dry Progress/Results/Core Measures Results/Orders My Orders Orders - NICHOLE DUMONT MD O2 (09/04/22 11:56) Chest 1 View Ap/Pa Only (09/04/22 11:56) Albuterol/Ipra Inhalation Soln (Duoneb I (09/04/22 11:56) Svn Small Volume Nebulizer (09/04/22 11:56) Vital Signs/I&O 09/04/22 09/04/22 09/04/22 09/04/22 11:47 11:47 11:47 12:27 Temp 36.5 36.5 Pulse 89 85 Resp 18 18 B/P (MAP) 138/74 (95) 140/78 Pulse Ox 95 94 95 O2 Delivery Nasal Cannula Nasal Cannula Nasal Cannula Nasal Cannula O2 Flow Rate 2.00 2.00 2.00 2.00 2.00 Blood Pressure Mean: 95 Progress Progress Note #1: Progress Note Administer a DuoNeb breathing treatment to help with his shortness of breath. Placed on supplemental oxygen at 2 L/min. Chest x-ray to evaluate for any acute change in his lungs and compared to imaging from his recent admission 07/22 through 07/25. Differential diagnosis includes COPD exacerbation, pneumonia, CHF exacerbation, lung mass, pneumothorax Progress Note #2: Progress Note Chest x-ray shows a left pleural effusion and bilateral perihilar opacities concerning for inflammatory process versus pulmonary edema versus developing pneumonia. Patient was feeling better after breathing treatment and his oxygen saturation was staying up in the low to mid 90s. Reassured patient and will treat with a Z-Severiano for the area of possible infection versus pulmonary edema. Prednisone burst for 7 days to help with COPD exacerbation. Encouraged to check back with primary care provider for continued concerns Diagnostic Imaging Diagonstic Imaging: Xray Plain Films/CT/US/NM/MRI: chest Comments NAME: JUDIT WILDE [facility] REC#: [id number] PT STATUS: REG ER : 1945 PHYSICIAN: NICHOLE DUMONT MD ADMIT DATE: 09/04/22/ER FS Draft Date of Exam:09/04/22 CHEST 1 VIEW AP/PA ONLY EXAMINATION: Chest 1 view HISTORY: short of breath, chest tightness COMPARISON: 07/23/2022 FINDINGS: Heart size and pulmonary vasculature are normal. There are patchy airspace opacities within the perihilar and lower lungs. There is a left-sided pleural effusion. No pneumothorax. Degenerative changes of the thoracic spine. Osseous structures are otherwise intact. IMPRESSION: 1. Perihilar and bibasilar opacities which could represent pneumonia or pulmonary edema. 2. Left pleural effusion. Dictated on workstation # [id number] Dict: 09/04/22 1212 Trans: 09/04/22 1215 [facility] [id number] Interpreted by: JOHANN BHANDARI DO Electronically signed by: Reviewed: Reviewed by Me Departure Impression Primary Impression: Acute exacerbation of chronic obstructive pulmonary disease (COPD) Additional Impression: Dyspnea Qualified Codes: R06.02 - Shortness of breath Disposition: HOME, SELF-CARE Condition: Stable Departure-Patient Inst. Decision time for Depature: 12:20 Referrals: KEVIN OSBORNE MD (PCP/Family) Primary Care Physician Patient Instructions: COPD Exacerbation, Adult ED, Shortness of Breath, Adult ED, COPD Diet Add. Discharge Instructions: Continue with your regular medicines for your COPD and your supplemental oxygen. Take the steroids (Prednisone) for your COPD flare and take Azithromycin (antibiotic) to treat for possible infection contributing to your shortness of breath and flare of your COPD. Follow up with Dr. Osborne in the clinic for recheck and if continued trouble breathing All discharge instructions reviewed with patient and/or family. Voiced u nderstanding. Scripts Azithromycin (Azithromycin) 250 Mg Tablet 250 MG PO UD for COPD exacerbation for 5 Days, #6 TAB 0 Refills TAKE 2 TABLETS ON DAY ONE THEN TAKE 1 TABLET DAILY FOR FOUR MORE DAYS Prov: NICHOLE DUMONT MD 09/04/22 Prednisone (Prednisone) 20 Mg Tab 40 MG PO DAILY for COPD exacerbation for 7 Days, #14 TAB 0 Refills Prov: NICHOLE DUMONT MD 09/04/22 NICHOLE DUMONT MD Sep 04, 2022 12:03
--- NOTE | 2022-09-04 12:15 | Diagnostic Imaging Report ---
EXAMINATION: Chest 1 view HISTORY: short of breath, chest tightness COMPARISON: 07/23/2022 FINDINGS: Heart size and pulmonary vasculature are normal. There are patchy airspace opacities within the perihilar and lower lungs. There is a left-sided pleural effusion. No pneumothorax. Degenerative changes of the thoracic spine. Osseous structures are otherwise intact. IMPRESSION: 1. Perihilar and bibasilar opacities which could represent pneumonia or pulmonary edema. 2. Left pleural effusion. Dictated by: Dictated on workstation # [id number]
[2022-09-04] MEDS ORDERED: PRD20T PO (12:22)
[2022-09-04] MEDS ORDERED: AZIT250T12 PO (12:22)
[2022-09-04 12:27] VITALS: BP 140/78
== END 2022-09-04 12:28 | disposition home or self-care (01) ==
LOC: EDUNIT# 11:41 → ER FS 11:43
DX: J44.1 Chronic obstructive pulmonary disease with (acute) exacerbation (principal); Z87.891 Personal history of nicotine dependence; Z99.81 Dependence on supplemental oxygen
CPT/HCPCS: 71045; 94640

== ENCOUNTER 2022-10-08 06:18 | Emergency (ER) | payer SELFPAY ==
[~2022-10-08] VITALS: Ht 180.3 cm; Wt 51.3 kg
[2022-10-08 06:18] VITALS: BP 165/105
[~2022-10-08 06:18] MED LIST changes: +AZIT250T12 PO; +PRD20T PO
[2022-10-08] MEDS ORDERED: FUROSEMIDE 40 MG/4 ML INJ (LASIX) IVP STA (06:26)
[2022-10-08] MEDS ORDERED: methylPREDNISolone 125 MG (Solu-MEDROL) VIAL IVP STA (06:26)
[2022-10-08] MEDS ORDERED: RT-ALBUTEROL/IPRATROPIUM 3 ML (DUONEB) VIAL INH ONE (06:30)
--- NOTE | 2022-10-08 06:39 | ED Dyspnea ---
General Stated Complaint: DIFFICULTY BREATHING Source of Information: Patient, EMS, Old Records Exam Limitations: Other (dyspnea limits his speaking) (NICHOLE DUMONT MD) History of Present Illness Date Seen by Provider: Oct 08, 2022 Time Seen by Provider: 06:23 Initial Comments 76-year-old male presenting with complaints of increased shortness of breath especially overnight. He states that he feels like his medicines have been helping him as much recently. He does use oxygen at 2 L/min at home for chronic end-stage COPD. He recently was also diagnosed with heart failure. He denies having any fever, chills, increased sputum production, chest pain, abdominal pain, nausea, vomiting. When EMS arrived they reported that his oxygen saturation was around 84% on his 2 L. They placed him on CPAP to help with his breathing as he also had Rales with decreased breath sounds. He was only able to speak in 1 and 2 word sentences initially. He has had improvement with the CPAP and transportation to the ED. He states that he would want to be placed back on a machine or intubated if he needed to be, but on previous visit he had told me that he would not want to be intubated if his breathing worsened. Timing/Duration: 1-3 Hours Severity: Severe Activities at Onset: Rest Prior Episodes/Possible Cause: Chronic Episodes, Frequent Episodes Modifying Factors: Worse With Activity Associated Symptoms: Anxiety, Cough, Weakness (NICHOLE DUMONT MD) Allergies and Home Medications Allergies Coded Allergies: No Known Drug Allergies (Unverified , 07/22/22) Patient Home Medication List Home Medication List Reviewed: Yes (NICHOLE DUMONT MD) Aspirin (Children's Aspirin) 81 Mg Tab.chew, 81 MG PO DAILY Prescribed by: BRICE DEWEY on 07/24/22956 Azithromycin (Azithromycin) 250 Mg Tablet, 250 MG PO UD Prescribed by: NICHOLE DUMONT on 09/04/22 1222 Furosemide (Lasix) 40 Mg Tablet, 40 MG PO Q48H Prescribed by: BRICE DEWEY on 07/24/22956 Metoprolol Succinate (Metoprolol Succinate) 100 Mg Tab.er.24h, 100 MG PO DAILY Prescribed by: BRICE DEWEY on 07/24/22956 Potassium Chloride (Potassium Chloride) 10 Meq Capsule.er, 10 MEQ PO Q48H Prescribed by: BRICE DEWEY on 07/24/22956 Prednisone (Prednisone) 20 Mg Tab, 40 MG PO DAILY Prescribed by: NICHOLE DUMONT on 09/04/22 1222 Review of Systems Review of Systems Constitutional: No chills, No fever EENTM: nose congestion Respiratory: see HPI, short of breath; No stridor, No wheezing Cardiovascular: No chest pain, No edema; palpitations Gastrointestinal: No nausea, No vomiting Genitourinary: decreased output Musculoskeletal: no symptoms reported Skin: No rash Psychiatric/Neurological: Denies Headache, Denies Numbness (NICHOLE DUMONT MD) Past Etcewvo-Xtfgpv-Vyyhpm Hx Patient Social History Tobacco Use?: No Smoking Status: Former Smoker Use of E-Cig and/or Vaping dev: No Substance use?: No Alcohol Use?: No (NICHOLE DUMONT MD) Past Medical History Surgery/Hospitalization HX: COPD, combined systolic and diastolic CHF, chronic renal failure, history of tobacco. (NICHOLE DUMONT MD) Physical Exam Vital Signs Vital Signs - First Documented 10/08/22 06:18 Temp 36.0 Pulse 113 Resp 24 B/P (MAP) 165/105 (125) Pulse Ox 96 O2 Delivery Nasal Cannula O2 Flow Rate 8.00 (IAN RICE DO) Vital Signs Capillary Refill : (NICHOLE DUMONT MD) Height, Weight, BMI Height: '" Weight: lbs. oz. kg; 16.81 BMI Method: General Appearance: Chronically ill, Moderate Distress HEENT: PERRL/EOMI, Pharynx Normal, Moist Mucous Membranes Neck: Full Range of Motion, Normal Inspection, Non Tender, Supple Respiratory: Chest Non Tender, Accessory Muscle Use, Decreased Breath Sounds (in bases clear in upper lobes); No Rales; Respiratory Distress; No Rhonci, No Stridor, No Wheezing Cardiovascular: Normal Peripheral Pulses, Tachycardia Peripheral Pulses: 2+ Dorsalis Pedis (R), 2+ Left Dors-Pedis (L), 2+ Radial Pulses (R), 2+ Radial Pulses (L) Gastrointestinal: Normal Bowel Sounds, No Pulsatile Mass, Non Tender, Soft Rectal: Deferred Extremity: Normal Capillary Refill, Normal Inspection, No Pedal Edema Neurologic/Psychiatric: Alert, Oriented x3, head banquet waiter/waitress II-XII Norm as Tested Skin: Normal Color, Warm/Dry (NICHOLE DUMONT MD) Focused Exam Lactate Level 10/08/22 07:10: Lactic Acid Level 1.04 (IAN RICE DO) Lactic Acid Level Laboratory Tests Test 10/08/22 07:10 Lactic Acid Level 1.04 MMOL/L (0.50-2.00) (IAN RICE DO) Progress/Results/Core Measures Results/Orders Lab Results Laboratory Tests Test 10/08/22 06:27 10/08/22 07:10 Range/Units Influenza Type A (RT-PCR) Not Detected Not Detecte Influenza Type B (RT-PCR) Not Detected Not Detecte SARS-CoV-2 RNA (RT-PCR) Not Detected Not Detecte White Blood Count 12.2 H 4.3-11.0 10^3/uL Red Blood Count 3.78 L 4.30-5.52 10^6/uL Hemoglobin 10.9 L 13.3-17.7 g/dL Hematocrit 34 L 40-54 % Mean Corpuscular Volume 90 80-99 fL Mean Corpuscular Hemoglobin 29 25-34 pg Mean Corpuscular Hemoglobin Concent 32 32-36 g/dL Red Cell Distribution Width 14.7 H 10.0-14.5 % Platelet Count 329 130-400 10^3/uL Mean Platelet Volume 8.6 L 9.0-12.2 fL Immature Granulocyte % (Auto) 1 % Neutrophils (%) (Auto) 74 42-75 % Lymphocytes (%) (Auto) 15 12-44 % Monocytes (%) (Auto) 9 0-12 % Eosinophils (%) (Auto) 1 0-10 % Basophils (%) (Auto) 1 0-10 % Neutrophils # (Auto) 9.0 H 1.8-7.8 10^3/uL Lymphocytes # (Auto) 1.8 1.0-4.0 10^3/uL Monocytes # (Auto) 1.1 H 0.0-1.0 10^3/uL Eosinophils # (Auto) 0.1 0.0-0.3 10^3/uL Basophils # (Auto) 0.1 0.0-0.1 10^3/uL Immature Granulocyte # (Auto) 0.1 0.0-0.1 10^3/uL Prothrombin Time 18.8 H 12.2-14.7 SEC INR Comment 1.5 H 0.8-1.4 Activated Partial Thromboplast Time 33 24-35 SEC Blood Gas Puncture Site LT. RADIAL Blood Gas Patient Temperature 36.0 Arterial Blood pH 7.48 H 7.37-7.43 Arterial Blood Partial Pressure CO2 43 35-45 MMHG Arterial Blood Partial Pressure O2 53 L 79-93 MMHG Arterial Blood HCO3 32 H 23-27 MMOL/L Arterial Blood Total CO2 33.3 H 21.0-31.0 MMOL/L Arterial Blood Oxygen Saturation 90 L 94-100 % Arterial Blood Base Excess 7.6 H -2.5-2.5 MMOL/L Nicho Test OK Blood Gas Ventilator Setting NO Blood Gas Inspired Oxygen 4L Lactic Acid Level 1.04 0.50-2.00 MMOL/L (IAN RICE DO) Medications Given in ED Current Medications Medications Dose Ordered Sig/Jayne Route Start Time Stop Time Status Last Admin Dose Admin Albuterol/ Ipratropium 3 ml ONCE ONCE INH 10/08/22 06:30 10/08/22 06:31 DC 10/08/22 07:28 3 ML (IAN RICE DO) Vital Signs/I&O 10/08/22 10/08/22 10/08/22 10/08/22 06:18 06:18 06:20 06:24 Temp 36.0 Pulse 113 Resp 24 B/P (MAP) 165/105 (125) Pulse Ox 96 96 93 O2 Delivery Nasal Cannula Room Air Nasal Cannula Nasal Cannula O2 Flow Rate 8.00 4.00 4.00 94.00 10/08/22 07:10 Pulse Ox 90 O2 Delivery Nasal Cannula O2 Flow Rate 2.00 (IAN RICE DO) Progress Progress Note : Progress Note With his increased shortness of breath and difficulty breathing will obtain basic CBC, chemistry, cardiac enzymes, ABG, chest x-ray, electrocardiogram. From reviewing his prior ED visits and admission information from June and August he has improved when treated with nebulizer medication and steroids. We will also give a dose of Lasix 80 mg IV for heart failure. Solu-Medrol 125 mg IV x1 in addition to a DuoNeb treatment for his breathing. His oxygen was able to be decreased from the CPAP on 8 L to nasal cannula at 4 L and he was staying at 93 to 94%. He does have increased work of breathing but is able to speak in complete sentences while taking a breath between each answer or sentence. He denies having fever, chills, exposure to ill contacts. Differential diagnosis includes COPD exacerbation, pneumonia, CHF exacerbation, COVID, influenza, myocardial infarction (NICHOLE DUMONT MD) Initial ECG Impression Date: Oct 08, 2022 Initial ECG Impression Time: 06:50 Initial ECG Rate: 105 Initial ECG Rhythm: S.Tach Initial ECG Comparisson: Unchanged Comment On my independent review and interpretation of his electrocardiogram he has sinus tachycardia with a heart rate of 105 bpm. AR interval [address] elevation. He has a right bundle branch block. He has Q waves in the anterior leads. QT interval 323 ms with a QTc interval 384 ms. Overall appears similar to tracing from September 04, 2022. (NICHOLE DUMONT MD) Diagnostic Imaging Diagonstic Imaging: Xray Plain Films/CT/US/NM/MRI: chest Comments On my personal independent review and interpretation of his 1 view chest x-ray he has slight increase in pulmonary vascular congestion and left pleural effusion compared to September 04, 2016. He could have infiltrate in addition to increased pulmonary vascular congestion. Reviewed: Reviewed by Me (NICHOLE DUMONT MD) Transfer of Care Time: 07:00 Care transferred to: Dr. Rice (NICHOLE DUMONT MD) Departure Communication (Admissions) Patient is hemodynamically stable. He is back down to 2 L of oxygen via nasal cannula and speaking in complete sentences. He tells me he feels back to his normal respiratory baseline. He asked me if his breathing is going to "get any better ever." I advised him that given his COPD and CHF that he will likely have to adapt to a new normal of breathing. He does have an appoint with the crossword puzzle maker tomorrow which he plans on keeping. Gave him a dose of Lasix here with good urine output. He is also given steroids here. Chest x-ray shows increased pulmonary vascular congestion. I advised him to speak with his pul photoengraving finisher tomorrow about the possibility of increasing his Lasix more long- term. He will be discharged with steroids. He has nebulizers at home. He is currently on 2 L of oxygen via nasal cannula. I advised he may increase this to 4 L if necessary. If he needs to go higher than this and recommended that he come back to the emergency department. Recommend follow-up with his primary doctor in 24 to 48 hours. He states understanding. Questions were sought and answered he is discharged in stable condition peer (IAN RICE DO) Impression Primary Impression: Acute exacerbation of chronic obstructive pulmonary disease (COPD) Additional Impression: Congestive heart failure Qualified Codes: I50.43 - Acute on chronic combined systolic (congestive) and diastolic (congestive) heart failure Disposition: 01 HOME, SELF-CARE Condition: Stable Departure-Patient Inst. Referrals: KEVIN PANTOJA MD (PCP/Family) Primary Care Physician Patient Instructions: Chronic Obstructive Pulmonary Disease (COPD), Including Emphysema, CHF Add. Discharge Instructions: You were seen in the emergency department today for shortness of breath. As discussed I think your symptoms are from increased fluid on your lungs, especially on the left side. We have given you an extra dose of Lasix, a diuretic, here in the emergency department which should help with your symptoms. You may also increase your oxygen to 4 L on your concentrator to see if this might help. If you feel you need more oxygen than this you should return to the emergency department immediately. See the lung specialist tomorrow as scheduled. Discussed with them possibility of increasing your Lasix dose. I have prescribed steroids for you. You will need to pick these up at your pharmacy and take them as prescribed until they are gone. Return to the emergency department for any severe concerns. Follow-up with your primary doctor for any nonemergent needs Scripts Prednisone (Prednisone) 50 Mg Tab 50 MG PO DAILY for 5 Days, #5 TAB Prov: IAN RICE DO 10/08/22 NICHOLE DUMONT MD Oct 08, 2022 06:39 IAN RICE DO Oct 08, 2022 07:54
[2022-10-08 07:18] LABS: ABG BASE EXCESS 7.6 MMOL/L (-2.5-2.5); ABG OXYGEN SATURATION 90 % (94-100); ABG PCO2 43 MMHG (35-45); ABG PH 7.48 (7.37-7.43); ABG PO2 53 MMHG (79-93); ABG TCO2 33.3 MMOL/L (21.0-31.0)
[2022-10-08 07:19] LABS: ALLENS TEST OK; INSPIRED O2 4L; VENTILATOR NO
[2022-10-08 07:20] LABS: BASOPHILS # (AUTO) 0.1 10^3/uL (0.0-0.1); BASOPHILS % (AUTO) 1 % (0-10); EOSINOPHILS # (AUTO) 0.1 10^3/uL (0.0-0.3); EOSINOPHILS % (AUTO) 1 % (0-10); HEMATOCRIT 34 % (40-54); HEMOGLOBIN 10.9 g/dL (13.3-17.7); LYMPHOCYTES # (AUTO) 1.8 10^3/uL (1.0-4.0); LYMPHOCYTES % (AUTO) 15 % (12-44); MEAN CORPUSCULAR HEMOGLOBIN 29 pg (25-34); MEAN CORPUSCULAR HGB CONC 32 g/dL (32-36); MEAN CORPUSCULAR VOLUME 90 fL (80-99); MEAN PLATELET VOLUME 8.6 fL (9.0-12.2); MONOCYTES # (AUTO) 1.1 10^3/uL (0.0-1.0); MONOCYTES % (AUTO) 9 % (0-12); NEUTROPHILS % (AUTO) 74 % (42-75); PLATELET COUNT 329 10^3/uL (130-400); WHITE BLOOD COUNT 12.2 10^3/uL (4.3-11.0)
[2022-10-08 07:34] LABS: INR 1.5 (0.8-1.4); PROTHROMBIN TIME PATIENT 18.8 SEC (12.2-14.7)
[2022-10-08 07:50] LABS: ALANINE AMINOTRANSFERASE 13 U/L (0-55); ALKALINE PHOSPHATASE 203 U/L (40-136); BILIRUBIN,TOTAL 0.3 MG/DL (0.1-1.0); BUN/CREATININE RATIO 17; CALCIUM 7.9 MG/DL (8.5-10.1); CARBON DIOXIDE 27 MMOL/L (21-32); CHLORIDE 102 MMOL/L (98-107); CREATININE SERUM 1.44 MG/DL (0.60-1.30); GFR ESTIMATED 50; GLUCOSE 119 MG/DL (70-105); MAGNESIUM 2.1 MG/DL (1.6-2.4); SODIUM 137 MMOL/L (135-145)
[2022-10-08 07:51] LABS: ALBUMIN 2.6 GM/DL (3.2-4.5)
[2022-10-08] MEDS ORDERED: PRD50T PO (07:51)
--- NOTE | 2022-10-08 08:28 | Diagnostic Imaging Report ---
EXAMINATION: Chest radiograph, portable AP view. DATE: 10/08/2022 6:39 AM INDICATION: 76-year-old male, shortness of breath. COMPARISON: September 04, 2022. FINDINGS: Heart size and mediastinal contours are unchanged. There is no identified pneumothorax. There is nonspecific left mid and lower lung zone consolidation. There are multifocal bilateral alveolar and/or interstitial opacities. There is slight blunting of the right lateral costophrenic angle. IMPRESSION: 1. Multifocal bilateral alveolar and/or interstitial opacities which may reflect atypical infection and multifocal pneumonia. Pneumonitis and edema would be additional differential considerations. 2. Probable moderate left pleural effusion and nonspecific left mid and lower lung zone consolidation which is increased since comparison exam. Dictated by: Dictated on workstation # [id number]
[2022-10-10] MEDS ORDERED: OXC5T PO (11:07)
== END 2022-10-08 08:45 | disposition home or self-care (01) ==
LOC: EDUNIT# 06:23 → ER FS 06:25
DX: J44.1 Chronic obstructive pulmonary disease with (acute) exacerbation (principal); I50.43 Acute on chronic combined systolic (congestive) and diastolic (congestive) heart failure; Z87.891 Personal history of nicotine dependence; Z28.310 Unvaccinated for COVID-19; Z20.822 Contact with and (suspected) exposure to COVID-19
CPT/HCPCS: 36415; 71045; 80053; 82805; 83605; 83735; 83880; 84484; 85025; 85610; 85730; 86141; 87040; 87636; 93005; 93041

== ENCOUNTER 2022-10-09 10:33 | Inpatient (IN) | payer MEDICARE ==
[2022-10-09] VITALS (18 sets, daily range): BP systolic 119–154; BP diastolic 78–115
[~2022-10-09] VITALS: Ht 182 cm; Wt 51.8 kg
[~2022-10-09 10:33] MED LIST changes: +PRD50T PO
--- NOTE | 2022-10-09 10:43 | ED Chest Pain ---
General Chief Complaint: Chest Pain Stated Complaint: CHEST PAIN History of Present Illness Date Seen by Provider: Oct 09, 2022 Time Seen by Provider: 10:35 Initial Comments 76-year-old male with PMH of CHF/end-stage COPD, is brought in by EMS with com plaints of shortness of breath and chest pain. Patient was in the ER yesterday for the same complaints and was discharged home. Patient states that he was speaking with a Blippar on the phone and felt stressed and began to have chest discomfort and worsening shortness of breath. Patient states that his PCP is planning hospice care for him. Patient describes his chest pain has bilateral, as a band across his chest. Patient states that he is DNR and DNI. Denies palpitations, neurological deficits, headache, nausea and vomiting. Allergies and Home Medications Allergies Coded Allergies: No Known Drug Allergies (Unverified , 07/22/22) Patient Home Medication List Home Medication List Reviewed: Yes Aspirin (Children's Aspirin) 81 Mg Tab.chew, 81 MG PO DAILY Prescribed by: BRICE DEWEY on 07/24/22 0957 Azithromycin (Azithromycin) 250 Mg Tablet, 250 MG PO UD Prescribed by: NICHOLE DUMONT on 09/04/22 1222 Furosemide (Lasix) 40 Mg Tablet, 40 MG PO Q48H Prescribed by: BRICE DEWEY on 07/24/22 0957 Metoprolol Succinate (Metoprolol Succinate) 100 Mg Tab.er.24h, 100 MG PO DAILY Prescribed by: BRICE DEWEY on 07/24/22 0957 Potassium Chloride (Potassium Chloride) 10 Meq Capsule.er, 10 MEQ PO Q48H Prescribed by: BRICE DEWEY on 07/24/22 0957 Prednisone (Prednisone) 20 Mg Tab, 40 MG PO DAILY Prescribed by: NICHOLE DUMONT on 09/04/22 1222 Prednisone (Prednisone) 50 Mg Tab, 50 MG PO DAILY Prescribed by: IAN RICE MD on 10/08/22 0751 Review of Systems Review of Systems Constitutional: no symptoms reported EENTM: No Symptoms Reported Respiratory: Shortness of Air Cardiovascular: Chest Pain Gastrointestinal: No Symptoms Reported Genitourinary: No Symptoms Reported Musculoskeletal: no symptoms reported Skin: no symptoms reported Psychiatric/Neurological: No Symptoms Reported Endocrine: No Symptoms Reported Hematologic/Lymphatic: No Symptoms Reported Past Fcdqnnv-Nnlpth-Ojiasy Hx Past Medical History Surgery/Hospitalization HX: COPD, combined systolic and diastolic CHF, chronic renal failure, historyof tobacco. Physical Exam Vital Signs Vital Signs - First Documented Capillary Refill : Height, Weight, BMI Height: '" Weight: lbs. oz. kg; 15.00 BMI Method: General Appearance: No Apparent Distress, Anxious, Thin HEENT: PERRL/EOMI Neck: Full Range of Motion Respiratory: Chest Non Tender, No Accessory Muscle Use, Rales, Wheezing Cardiovascular: No Edema, Tachycardia Gastrointestinal: Normal Bowel Sounds, Non Tender, Soft Extremity: Normal Range of Motion, Other (multiple scabs and ecchymosis all over body) Skin: Ecchymosis Lymphatic: No Adenopathy Focused Exam Lactate Level 10/09/22 12:10: Lactic Acid Level 2.56*H Lactic Acid Level Laboratory Tests Test 10/09/22 12:10 Lactic Acid Level 2.56 MMOL/L (0.50-2.00) *H Progress/Results/Core Measures Results/Orders Lab Results Laboratory Tests Test 10/09/22 10:40 10/09/22 12:06 10/09/22 12:10 Range/Units White Blood Count 12.4 H 4.3-11.0 10^3/uL Red Blood Count 3.76 L 4.30-5.52 10^6/uL Hemoglobin 10.8 L 13.3-17.7 g/dL Hematocrit 34 L 40-54 % Mean Corpuscular Volume 90 80-99 fL Mean Corpuscular Hemoglobin 29 25-34 pg Mean Corpuscular Hemoglobin Concent 32 32-36 g/dL Red Cell Distribution Width 14.8 H 10.0-14.5 % Platelet Count 332 130-400 10^3/uL Mean Platelet Volume 8.8 L 9.0-12.2 fL Immature Granulocyte % (Auto) 1 % Neutrophils (%) (Auto) 90 H 42-75 % Lymphocytes (%) (Auto) 5 L 12-44 % Monocytes (%) (Auto) 4 0-12 % Eosinophils (%) (Auto) 0 0-10 % Basophils (%) (Auto) 0 0-10 % Neutrophils # (Auto) 11.2 H 1.8-7.8 10^3/uL Lymphocytes # (Auto) 0.6 L 1.0-4.0 10^3/uL Monocytes # (Auto) 0.6 0.0-1.0 10^3/uL Eosinophils # (Auto) 0.0 0.0-0.3 10^3/uL Basophils # (Auto) 0.0 0.0-0.1 10^3/uL Immature Granulocyte # (Auto) 0.1 0.0-0.1 10^3/uL Neutrophils % (Manual) 96 % Lymphocytes % (Manual) 2 % Monocytes % (Manual) 2 % Eosinophils % (Manual) 0 % Basophils % (Manual) 0 % Band Neutrophils 0 % Prothrombin Time 24.2 H 12.2-14.7 SEC INR Comment 2.1 H 0.8-1.4 Activated Partial Thromboplast Time 35 24-35 SEC D-Dimer 1.79 H 0.00-0.49 UG/ML Sodium Level 141 135-145 MMOL/L Potassium Level 4.2 3.6-5.0 MMOL/L Chloride Level 100 98-107 MMOL/L Carbon Dioxide Level 30 21-32 MMOL/L Anion Gap 11 5-14 MMOL/L Blood Urea Nitrogen 33 H 7-18 MG/DL Creatinine 1.56 H 0.60-1.30 MG/DL Estimat Glomerular Filtration Rate 45 BUN/Creatinine Ratio 21 Glucose Level 203 H 70-105 MG/DL Calcium Level 8.6 8.5-10.1 MG/DL Corrected Calcium 9.3 8.5-10.1 MG/DL Magnesium Level 2.3 1.6-2.4 MG/DL Total Bilirubin 0.2 0.1-1.0 MG/DL Aspartate Amino Transf (AST/SGOT) 23 5-34 U/L Alanine Aminotransferase (ALT/SGPT) 16 0-55 U/L Alkaline Phosphatase 197 H 40-136 U/L Troponin I 0.70 *H 2.03 *H <0.30 NG/ML Pro-B-Type Natriuretic Peptide 76080.0 H <450.0 PG/ML Total Protein 6.5 6.4-8.2 GM/DL Albumin 3.1 L 3.2-4.5 GM/DL Lactic Acid Level 2.56 *H 0.50-2.00 MMOL/L My Orders Orders - LUCIANA GREEN MD Chest 1 View Ap/Pa Only (10/09/22 10:44) Cbc With Automated Diff (10/09/22 10:44) Comprehensive Metabolic Panel (10/09/22 10:44) Fibrin Degradation Products (10/09/22 10:44) Magnesium (10/09/22 10:44) Protime With Inr (10/09/22 10:44) Partial Thromboplastin Time (10/09/22 10:44) Probnp Fs (10/09/22 10:44) Troponin I Fs (10/09/22 10:44) Aspirin Tablet (Aspirin Tablet) (10/09/22 11:00) Nitroglycerin 0.4 Mg Btl 25's (Nitrostat (10/09/22 10:55) Manual Differential (10/09/22 10:40) Aspirin Chewable Tablet (Baby Aspirin Ch (10/09/22 11:05) Aspirin Chewable Tablet (Baby Aspirin Ch (10/09/22 11:15) Furosemide Injection (Lasix Injection) (10/09/22 11:45) Albuterol/Ipra Inhalation Soln (Duoneb I (10/09/22 11:45) Methylprednisolone Sod Succ (Solu-Medrol (10/09/22 11:36) Svn Small Volume Nebulizer (10/09/22 11:36) Troponin I Fs (10/09/22 11:54) Ekg Tracing (10/09/22 11:54) Lactic Acid Analyzer (10/09/22 12:01) Blood Culture (10/09/22 12:01) Cefepime Injection (Maxipime Injection) (10/09/22 12:15) Ed Admission (Communication) (10/09/22 12:27) Piperacillin Sodium/Tazobactam (Zosyn Vi (10/09/22 12:24) Enoxaparin Injection (Lovenox Injection) (10/09/22 13:05) Medications Given in ED Current Medications Medications Dose Ordered Sig/Jayne Route Start Time Stop Time Status Last Admin Dose Admin Albuterol/ Ipratropium 3 ml ONCE ONCE INH 10/09/22 11:45 10/09/22 11:46 DC 10/09/22 11:58 3 ML Aspirin 243 mg ONCE ONCE PO 10/09/22 11:15 10/09/22 11:16 DC 10/09/22 11:11 243 MG Cefepime HCl 1000 mg/Sodium Chloride 50 ml @ 100 mls/hr ONCE ONCE IV 10/09/22 12:15 10/09/22 12:44 DC 10/09/22 12:31 100 MLS/HR Furosemide 40 mg ONCE ONCE IVP 10/09/22 11:45 10/09/22 11:46 DC 10/09/22 11:59 40 MG Vital Signs/I&O 10/09/22 10/09/22 10:38 10:38 Temp 36.5 Pulse 122 Resp 22 B/P (MAP) 152/89 (110) Pulse Ox 91 O2 Delivery Nasal Cannula Nasal Cannula O2 Flow Rate 5.00 5.00 Progress Progress Note : Progress Note 1. ACS WORK-UP: DEMAND ISCHEMIA DUE TO ACUTE PULMONARY EDEMA, ACUTE CHF EXACERBATION, END STAGE COPD, & PNEUMONIA: ELEVATED TROPONIN - Pt is DNR/ DNI - CXR: - Elevated troponin of 0.7 , yesterday it was normal, 2nd troponin elevated to 2.03 - 1st EKG: sinus tachy with RBBB, 2nd EKG: - ASA 243mg STAT. Pt took 81mg today morning at home. - Will transfer for admission, with need for higher level of care. accepted by hospitalist - Chest pain resolved in ER - Cardiology consult via phone: advised Lovenox 2. ACUTE PULMONARY EDEMA/ ACUTE CHF EXACERBATION: - BNP is 19,071, yesterday it was 9,280 - Nitro sublingual STAT - s. Albumin is 3.1, borderline low, but yesterday it was lower at 2.6 - Lasix 40mg iv STAT in spite of albumin level 3. COMMUNITY ACQUIRED PNEUMONIA - CXR - CBC: WBC is 12.4 with a left shift - Blood cultures sent - Lactic acid:elevated: 2.56 - COVID / Flu test negative yesterday - Cefepime iv STAT 4. END STAGE COPD: - Pt is on 4L of O2 at home and is having hospice planning with PCP - Pt was supposed to have a pulm appointment today but it was cancelled - Pt stopped smoking April 2022 - Duo neb and solumedrol 125mg iv in ER 5. ELEVATED D-DIMER: - D-dimer is 1.79 - s. Creatinine is 1.79 so CTA is not an option - Would benefit from transfer for VQ Scan EKG : EKG Time: 10:52 Rate: 113 Rhythm: S.Tach Intervals: Normal ECG Comparisson: No Previous ECG Available ECG Impression: Nonspecific Changes Diagnostic Imaging Diagonstic Imaging: Xray Plain Films/CT/US/NM/MRI: chest Comments [facility] [place] NAME: JUDIT WILDE [facility] REC#: [id number] PT STATUS: REG ER : 1945 PHYSICIAN: LUCIANA GREEN MD ADMIT DATE: 10/09/22/ER FS Draft Date of Exam:10/09/22 CHEST 1 VIEW AP/PA ONLY INDICATION: Shortness of breath. Comparison made with prior examination of 10/08/2022 FINDINGS: The heart size is normal. There are bibasilar infiltrates. There is left pleural effusion. There is no pneumothorax. Mediastinum is unremarkable. Some venous congestion. IMPRESSION: Bibasilar pulmonary infiltrates left greater than right with a left pleural effusion. Mild central pulmonary venous congestion. Dictated on workstation # [id number] Dict: 10/09/22 1134 Trans: 10/09/22 1139 [id number] Interpreted by: MYCHAL LAMBERT MD Electronically signed by: Departure Communication (Admissions) Time/Spoke to Admitting Phy: 12:[address] Murillo and accepted for admission to ICU Time/Spoke to Consulting Phy: 13:[address] Portillo via phone: will be admitting pt Impression Primary Impression: Acute pulmonary edema Additional Impressions: Acute CHF (congestive heart failure) Qualified Codes: I50.9 - Heart failure, unspecified CAP (community acquired pneumonia) Elevated d-dimer End stage COPD Disposition: 30 STILL A PATIENT Condition: Stable Admissions Decision to Admit Reason: Admit from ER (General) Decision to Admit/Date: Oct 09, 2022 Time/Decision to Admit Time: 12:00 Transfer Method of Transfer: EMS Departure-Patient Inst. Referrals: KEVIN PANTOJA MD (PCP) Primary Care Physician LUCIANA GREEN MD Oct 09, 2022 10:43
[2022-10-09] MEDS ORDERED: NITROGLYCERIN 0.4 MG SL TABS BTL 25'S SL STA (10:55)
[2022-10-09 10:59] LABS: BASOPHILS % (AUTO) 0 % (0-10); EOSINOPHILS % (AUTO) 0 % (0-10); HEMATOCRIT 34 % (40-54); HEMOGLOBIN 10.8 g/dL (13.3-17.7); LYMPHOCYTES # (AUTO) 0.6 10^3/uL (1.0-4.0); LYMPHOCYTES % (AUTO) 5 % (12-44); MEAN CORPUSCULAR HEMOGLOBIN 29 pg (25-34); MEAN CORPUSCULAR HGB CONC 32 g/dL (32-36); MEAN CORPUSCULAR VOLUME 90 fL (80-99); MEAN PLATELET VOLUME 8.8 fL (9.0-12.2); MONOCYTES # (AUTO) 0.6 10^3/uL (0.0-1.0); MONOCYTES % (AUTO) 4 % (0-12); NEUTROPHILS # (AUTO) 11.2 10^3/uL (1.8-7.8); NEUTROPHILS % (AUTO) 90 % (42-75); PLATELET COUNT 332 10^3/uL (130-400); WHITE BLOOD COUNT 12.4 10^3/uL (4.3-11.0)
[2022-10-09] MEDS ORDERED: ASPIRIN 325 MG (5 GR) TABLET PO ONE (11:00)
[2022-10-09] MEDS ORDERED: ASPIRIN 81 MG CHEW (CHILDREN'S ASA) ONE (11:05)
[2022-10-09] MEDS ORDERED: ASPIRIN 81 MG CHEW (CHILDREN'S ASA) PO ONE (11:15)
[2022-10-09 11:22] LABS: FIBRIN DEGRADATION PRODUCTS 1.79 UG/ML (0.00-0.49); INR 2.1 (0.8-1.4); PROTHROMBIN TIME PATIENT 24.2 SEC (12.2-14.7)
[2022-10-09 11:23] LABS: CALCIUM 8.6 MG/DL (8.5-10.1); CREATININE SERUM 1.56 MG/DL (0.60-1.30); MAGNESIUM 2.3 MG/DL (1.6-2.4); POTASSIUM 4.2 MMOL/L (3.6-5.0)
[2022-10-09 11:24] LABS: BILIRUBIN,TOTAL 0.2 MG/DL (0.1-1.0)
[2022-10-09 11:25] LABS: ALBUMIN 3.1 GM/DL (3.2-4.5); TOTAL PROTEIN 6.5 GM/DL (6.4-8.2)
[2022-10-09] MEDS ORDERED: methylPREDNISolone 125 MG (Solu-MEDROL) VIAL IV STA (11:36)
[2022-10-09 11:37] LABS: NEUTROPHILS % (MANUAL) 96 %
[2022-10-09 11:38] LABS: BAND NEUTROPHILS 0 %; BASOPHILS % (MANUAL) 0 %; EOSINOPHILS % (MANUAL) 0 %; LYMPHOCYTES % (MANUAL) 2 %; MONOCYTES % (MANUAL) 2 %
--- NOTE | 2022-10-09 11:40 | Diagnostic Imaging Report ---
INDICATION: Shortness of breath. Comparison made with prior examination of 10/08/2022 FINDINGS: The heart size is normal. There are bibasilar infiltrates. There is left pleural effusion. There is no pneumothorax. Mediastinum is unremarkable. Some venous congestion. IMPRESSION: Bibasilar pulmonary infiltrates left greater than right with a left pleural effusion. Mild central pulmonary venous congestion. Dictated by: Dictated on workstation # [id number]
[2022-10-09] MEDS ORDERED: FUROSEMIDE 40 MG/4 ML INJ (LASIX) IVP ONE (11:45)
[2022-10-09] MEDS ORDERED: RT-ALBUTEROL/IPRATROPIUM 3 ML (DUONEB) VIAL INH ONE (11:45)
[2022-10-09] MEDS ORDERED: CEFEPIME INJECTION 1,000 MG in NS (IVPB) 50 ML IV ONE (12:15)
[2022-10-09] MEDS ORDERED: PIPERACILLIN/TAZO 4.5 GM VIAL (ZOSYN) IV ONE (12:24)
[2022-10-09] MEDS ORDERED: ENOXAPARIN INJECTION 30 MG/0.3 ML SYR SC ONE (13:00)
[2022-10-09] MEDS ORDERED: ENOXAPARIN 80 MG/0.8 ML (LOVENOX) SYR SC STA (13:05)
[2022-10-09] MEDS ORDERED: ANTACID SUSP 30 ML UDC (MYLANTA) PO PRN (15:00)
[2022-10-09] MEDS ORDERED: polyethylene glycoL POWDER 17 GM (MIRALAX) PACK PO PRN (15:00)
[2022-10-09] MEDS ORDERED: ENOXAPARIN 100 MG/1 ML (LOVENOX) SYR SC SCH (15:00)
[2022-10-09] MEDS ORDERED: HYDROmorphone 2 MG/ML VIAL (DILAUDID) IV PRN (15:00)
[2022-10-09] MEDS ORDERED: ONDANSETRON 4 MG/2 ML (SDV) Z0FRAN IV PRN (15:00)
[2022-10-09] MEDS ORDERED: ONDANSETRON 4 MG (ZOFRAN) ORAL DISSOLVE TAB PO PRN (15:00)
[2022-10-09] MEDS ORDERED: NS IV 500 ML 500 ML IV PRN (15:00)
[2022-10-09] MEDS ORDERED: MELATONIN 3 MG TABLET PO PRN (15:00)
[2022-10-09] MEDS ORDERED: diphenhydrAMINE 50 MG/ML INJ (BENADRYL) IVP PRN (15:00)
[2022-10-09] MEDS ORDERED: ACETAMINOPHEN 325 MG TABLET PO PRN (15:00)
[2022-10-09] MEDS ORDERED: diphenhydrAMINE 25 MG TAB (BENADRYL) PO PRN (15:00)
[2022-10-09] MEDS ORDERED: BISACODYL 10 MG SUPP (DULCOLAX) PR PRN (15:00)
[2022-10-09] MEDS ORDERED: ENOXAPARIN 60 MG/0.6 ML (LOVENOX) SYR SC SCH (16:00)
[2022-10-09] MEDS: inSUlin ASPART (NovoLOG) 1 UNIT/0.01 ML (CHARGE PER UNIT) SC SCH ×2 (16:15→21:00)
[2022-10-09 16:20] LABS: ABG BASE EXCESS 5.3 MMOL/L (-2.5-2.5); ABG OXYGEN SATURATION 95 % (94-100); ABG PCO2 45 MMHG (35-45); ABG PH 7.44 (7.37-7.43); ABG PO2 66 MMHG (79-93); ABG TCO2 30.9 MMOL/L (21.0-31.0)
[2022-10-09 16:21] LABS: ALLENS TEST POSITIVE
[2022-10-09 16:22] LABS: INSPIRED O2 5 L; PATIENT TEMP 36.6; VENTILATOR NO
[2022-10-09] MEDS ORDERED: FUROSEMIDE 40 MG/4 ML INJ (LASIX) IVP NR (17:00)
[2022-10-09] MEDS ORDERED: FUROSEMIDE 40 MG/4 ML INJ (LASIX) IVP SCH (17:00)
[2022-10-09] MEDS ORDERED: meTOprolol SUCCINATE 100 MG (TOPROL XL) TAB PO NR (17:00)
--- NOTE | 2022-10-09 17:15 | Consultation-Cardiology ---
HPI-Cardiology Cardiology Consultation: Date of Consultation 10/09/22 Time Seen by a Provider: 16:50 Date of Admission Attending Physician Cristhian Osborne MD Admitting Physician Admitting Physician: Genevieve Murillo DO Attending Physician: Genevieve Murillo DO Consulting Physician JEANNIE SORIA MD, MA, FACP, FACC, FSCAI, CCDS Physician requesting consult: Dr Murillo HPI: Chief Complaint: Reason for Card consult: Shortness of breath, elevated troponin 76 yo man admitted with increasing shortness of breath to Dr Murillo's service this am. He notes mild, upper chest discomfort in the L and the R parasternum, feeling of mild soreness that lasted a few hours and is currently not present. Shortness of breath is chronic and slowly progressive. More short of breath today and yesterday. Cough productive of small qty of yellowish sputum. No palp or syncope or swelling. Gen malaise and weakness. Wishes to be managed conservatively only. Requests DNR. States is being considered for Hospice by his pcp Review of Systems-Cardiology Review of Systems Constitutional: malaise, tiredness; No weight loss, No weight gain Eyes: No vision change Ears/Nose/Throat: No ear discharge, No nasal drainage, No recent hearing loss Respiratory: As described under HPI Cardiovascular: As described under HPI Gastrointestinal: No diarrhea, No nausea, No vomiting Genitourinary: No dysuria, No hematuria, No urine frequency changes Musculoskeletal: back pain (chronic) Skin: No rash; other (easy bruisability, chronic); No ulcerations Psychiatric/Neurological: No seizure, No focal weakness, No syncope Hematologic: easy bruising; No bleeding abnormalities MZE-Dnogjj-Xuefav Hx Patient Social History Smoking Status: Former Smoker Have you traveled recently?: No Alcohol Use?: No Pt feels they are or have been: No Past Medical History PMH As described under Assessment. Family Medical History Family Medical History: He denies any family h/o CAD. Allergies and Home Medications Allergies Coded Allergies: No Known Drug Allergies (Unverified , 07/22/22) Patient Home Medication List Home Medication List Reviewed: Yes Aspirin (Children's Aspirin) 81 Mg Tab.chew, 81 MG PO DAILY Prescribed by: BRICE DEWEY on 07/24/22 0957 Azithromycin (Azithromycin) 250 Mg Tablet, 250 MG PO UD Prescribed by: NICHOLE DUMONT on 09/04/22 1222 Furosemide (Lasix) 40 Mg Tablet, 40 MG PO Q48H Prescribed by: BRICE DEWEY on 07/24/22 0957 Metoprolol Succinate (Metoprolol Succinate) 100 Mg Tab.er.24h, 100 MG PO DAILY Prescribed by: BRICE DEWEY on 07/24/22 0957 Potassium Chloride (Potassium Chloride) 10 Meq Capsule.er, 10 MEQ PO Q48H Prescribed by: BRICE DEWEY on 07/24/22 0957 Prednisone (Prednisone) 20 Mg Tab, 40 MG PO DAILY Prescribed by: NICHOLE DUMONT on 09/04/22 1222 Prednisone (Prednisone) 50 Mg Tab, 50 MG PO DAILY Prescribed by: IAN RICE MD on 10/08/22 0751 Physical Exam-Cardiology Physical Exam Vital Signs/I&O 10/09/22 10/09/22 10/09/22 10/09/22 10:38 10:38 13:20 14:15 Temp 36.5 36.5 36.6 Pulse 122 110 Resp 22 B/P (MAP) 152/89 (110) 148/79 154/99 (117) Pulse Ox 91 99 O2 Delivery Nasal Cannula Nasal Cannula Nasal Cannula Nasal Cannula O2 Flow Rate 5.00 5.00 5.00 5.00 5.00 10/09/22 10/09/22 10/09/22 10/09/22 14:16 14:30 14:45 15:00 Pulse 110 112 109 112 Resp 15 22 10 B/P (MAP) 126/84 (98) 141/83 (102) 143/86 (105) Pulse Ox 97 98 95 O2 Delivery Nasal Cannula Nasal Cannula Nasal Cannula O2 Flow Rate 5.00 5.00 5.00 10/09/22 10/09/22 10/09/22 10/09/22 15:15 15:30 15:32 15:45 Temp 36.6 Pulse 109 111 112 112 Resp 15 59 46 B/P (MAP) 141/99 (113) 141/81 (101) 147/96 (113) Pulse Ox 98 96 97 96 O2 Delivery Nasal Cannula Nasal Cannula Nasal Cannula O2 Flow Rate 5.00 5.00 5.00 10/09/22 10/09/22 10/09/22 10/09/22 15:45 16:00 16:00 16:15 Pulse 110 111 Resp 18 15 B/P (MAP) 119/103 (108) 148/85 (106) Pulse Ox 97 97 94 O2 Delivery Nasal Cannula Nasal Cannula Nasal Cannula Nasal Cannula O2 Flow Rate 5.00 5.00 5.00 5.00 Capillary Refill : Less Than 3 Seconds Constitutional: AAO x 3, well-developed, well-nourished, other (thin-appearing) HEENT: PERRL, EOMI, hearing is well preserved Neck: carotid pulses are 2 + bilaterally, with good upstrokes Respiratory: No accessory muscle use; other (diminished air entry over all lung contreras, prolonged exp, exp wheezes, a few coarse basal crackles) Cardiovascular: regular rate-rhythm, S1 and S2, systolic murmur (soft MADELINE at card base) Gastrointestinal: No tender; soft; No guarding, No rebound; audible bowel sounds Extremities: other (mild edema of the legs); No clubbing, No cyanosis Neurologic/Psychiatric: other (moves all limbs equal) Skin: No rash, No ulcerations; other (multiple bruises at sites of minor trauma/blood draw) Data Review Labs Laboratory Tests 10/09/22 10:40: White Blood Count 12.4H, Red Blood Count 3.76L, Hemoglobin 10.8L, Hematocrit 34L , Mean Corpuscular Volume 90, Mean Corpuscular Hemoglobin 29, Mean Corpuscular Hemoglobin Concent 32, Red Cell Distribution Width 14.8H, Platelet Count 332, Mean Platelet Volume 8.8L, Immature Granulocyte % (Auto) 1, Neutrophils (%) (Auto) 90H, Lymphocytes (%) (Auto) 5L, Monocytes (%) (Auto) 4, Eosinophils (%) (Auto) 0, Basophils (%) (Auto) 0, Neutrophils # (Auto) 11.2H, Lymphocytes # (Auto) 0.6L, Monocytes # (Auto) 0.6, Eosinophils # (Auto) 0.0, Basophils # (Auto) 0.0, Immature Granulocyte # (Auto) 0.1, Neutrophils % (Manual) 96, L ymphocytes % (Manual) 2, Monocytes % (Manual) 2, Eosinophils % (Manual) 0, Basophils % (Manual) 0, Band Neutrophils 0, Prothrombin Time 24.2H, INR Comment 2.1H, Activated Partial Thromboplast Time 35, D-Dimer 1.79H, Sodium Level 141, Potassium Level 4.2, Chloride Level 100, Carbon Dioxide Level 30, Anion Gap 11, Blood Urea Nitrogen 33H, Creatinine 1.56H, Estimat Glomerular Filtration Rate 45, BUN/Creatinine Ratio 21, Glucose Level 203H, Calcium Level 8.6, Corrected Calcium 9.3, Magnesium Level 2.3, Total Bilirubin 0.2, Aspartate Amino Transf (AST/SGOT) 23, Alanine Aminotransferase (ALT/SGPT) 16, Alkaline Phosphatase 197H , Troponin I 0.70*H, Pro-B-Type Natriuretic Peptide 10103.0H, Total Protein 6.5, Albumin 3.1L 10/09/22 12:06: Troponin I 2.03*H 10/09/22 12:10: Lactic Acid Level 2.56*H 10/09/22 14:31: Lactic Acid Level 3.15*H 10/09/22 15:25: Glucometer 203H 10/09/22 16:13: Blood Gas Puncture Site R RADIAL, Blood Gas Patient Temperature 36.6, Arterial Blood pH 7.44H, Arterial Blood Partial Pressure CO2 45, Arterial Blood Partial Pressure O2 66L, Arterial Blood HCO3 30H, Arterial Blood Total CO2 30.9, Arterial Blood Oxygen Saturation 95, Arterial Blood Base Excess 5.3H, Nicho Test POSITIVE, Blood Gas Ventilator Setting NO, Blood Gas Inspired Oxygen 5 L 10/09/22 16:50: Laboratory Tests 10/09/22 10:40 A/P-Cardiology Assessment/Admission Diagnosis Ac resp failure, multifactorial (see below) Ac exac of severe COPD due pneumonia (associated with sepsis) - managed by Dr Murillo Acute systolic/diastolic CHF - Echocardiogram of 07-23-22 shows LVEF 40-45% with grade 1 diastolic dysfunction. Mild MR Elevated troponin, likely due type 2 MT due to CHF and COPD with hypoxemia Severe pulmonary hypertension - PASP 95-100 mmHg on echocardiogram of 07-23-22 CKD-3 - undetermined length of time, prob chronic - not suitable for ARB or ERENDIRA-inhib due to renal failure HTN - BB tx Adv COPD - oxygen-requiring H/O tobaccoism - quit in April 2022 DNR status and patient's request to be managed conservatively only Discussion and Recomendations * Furosemide * ASA * BB * Lovenox * Conservative management per patient request * Monitor labs Clinical Quality Measures AMI/AHF: ASA po Prior to arrival: Yes (81mg Aspirin) JEANNIE SORIA MD FACP FACC CCDS Oct 09, 2022 17:15
--- NOTE | 2022-10-09 17:45 | Tele-ICU Consult ---
History of Present Illness History of Present Illness Date Seen by Provider: Oct 09, 2022 Time Seen by Provider: 15:12 Date of Admission (Tele-ICU Physician , consultation as per request of PCP Service provided via interactive audio and video telecommunmyhub E-CARE system to a patient admitted to ICU bed in [facility]. Available chart/ vitals / labs / Images reviewed H&P is from ER notes Patient's information available about PMH, Shx, Fhx allergy reviewed inEMR. ROS as per chart and RN report Now in ICU, hemodynamically stable Video assessment done using teleICU camera, rest of exam as per RN Discussed with RN. Consultants: Hospital course: A/P Acute resp failure with hypoxia - most likely due to pulm edema with possible AECOPD - lasix given in ER ACS suspected with demad ischemia too - Elevated troponin of 0.7 , yesterday it was normal, 2nd troponin elevated to 2.03 -ASA given , cards consulted - heparin -? , as per cards - EF 40% recent Acute systolic/diastolic CHF - ECHO 07-23-22 shows LVEF 40-45% with grade 1 diastolic dysfunction. Mild MR. - lasix given in ER today and yesterday Suspected PNA on left , , worsening LEFT plural effusion - - Blood cultures pending - COVID / Flu test negative yesterday - Cefepime given in ER - to continue AECOPD\\ - steroids given in ER - br dilators Elv lactate - - Lactic acid:elevated: 2.56 - can be diue to WOB and hypoxia - not correlated with sepsis severity - lasix given for CHF exacerbation Chronic hypoxic resp failure, reported ES-COPD - Pt is on 2- 4L of O2 at home Coagulopathy - INR =2 CKD / VAHID -stable , received diuresis - follow SEVERE PULM HTN - echo RVSP 100 mmHg ( in volume overloadde state ? ) on ECHO 07-23-22 - can be due to chronic hypoxix/ ? ROHAN , but with elevted Ddimer and chronic Pulm HTN , would need VQ to r/o thromboembolic dz - on lovenoc proph dose - MIGHT NEED TO INCREASE DOSE TO FULL as per ER notes - He states he does not want to be intubated., DNR/DNI and having hospice planning with PCP Lines : , (Central Line Necessity Reviewed) Ramachandran: OG: Nutrition: Analgesia: Anxiety/ delirium VTE Prophylaxis: Stress Ulcer Prophylaxis: Glycemic Control: Plans in collaboration with bedside consultants and IM MDs. Discussed with RN to reach out if any questions or concerns A total of 31 minutes of critical care time was devoted to this patient today, required to treat and/or prevent further deterioration of critical care condition ( as above ) . I am remotely monitoring this patient from another state. I am unable to do the bedside exam, and history/physical and pertinent information is taken from other notes in the computer and bedside staff. . Allergies and Home Medications Allergies Coded Allergies: No Known Drug Allergies (Unverified , 07/22/22) Home Medications Aspirin 81 Mg Tab.chew, 81 MG PO DAILY Prescribed by: BRICE DEWEY on 07/24/22 09 Azithromycin 250 Mg Tablet, 250 MG PO UD TAKE 2 TABLETS ON DAY ONE THEN TAKE 1 TABLET DAILY FOR FOUR MORE DAYS Prescribed by: NICHOLE DUMONT on 09/04/22 1222 Furosemide 40 Mg Tablet, 40 MG PO Q48H Prescribed by: BRICE DEWEY on 07/24/22 0957 Metoprolol Succinate 100 Mg Tab.er.24h, 100 MG PO DAILY Prescribed by: BRICE DEWEY on 07/24/22 0957 Potassium Chloride 10 Meq Capsule.er, 10 MEQ PO Q48H Prescribed by: BRICE DEWEY on 07/24/22 0957 Prednisone 20 Mg Tab, 40 MG PO DAILY Prescribed by: NICHOLE DUMONT on 09/04/22 1222 Prednisone 50 Mg Tab, 50 MG PO DAILY Prescribed by: IAN RICE MD on 10/08/22 0751 Past Medical/Social/Family Hx Patient Social History Tobacco Use?: No Smoking Status: Former Smoker Use of E-Cig and/or Vaping dev: No Substance use?: No Alcohol Use?: No Pt stated abuse/neglect: No Immunizations Up To Date Influenza Vaccine Up-to-Date: No; Not Current Current Status Advance Directives: Yes Primary Language: Jamaican Preferred Spoken Language: Jamaican Is interpretation needed?: No Sensory deficits: Hearing impairment Past Medical History COPD HTN Tobacco abuse Review of Systems Constitutional: see HPI Focused Exam Lactate Level 10/09/22 12:10: Lactic Acid Level 2.56*H 10/09/22 14:31: Lactic Acid Level 3.15*H 10/09/22 16:50: Lactic Acid Level 2.40*H Height, Weight, BMI Height: '" Weight: lbs. oz. kg; 15.48 BMI Method: Lactic Acid Level Laboratory Tests Test 10/09/22 14:31 10/09/22 16:50 Lactic Acid Level 3.15 MMOL/L (0.50-2.00) *H 2.40 MMOL/L (0.50-2.00) *H Exam Exam Patient acknowledged, consented, and participated in this virtual visit which was conducted using real time audio/video Vital Signs Date Time Temp Pulse Resp B/P (MAP) Pulse Ox O2 Delivery O2 Flow Rate FiO2 10/09/22 16:15 111 15 148/85 (106) 94 Nasal Cannula 5.00 10/09/22 16:00 97 Nasal Cannula 5.00 10/09/22 16:00 110 18 119/103 (108) 97 Nasal Cannula 5.00 10/09/22 15:45 Nasal Cannula 5.00 10/09/22 15:45 112 46 147/96 (113) 96 Nasal Cannula 5.00 10/09/22 15:32 36.6 112 97 10/09/22 15:30 111 59 141/81 (101) 96 Nasal Cannula 5.00 10/09/22 15:15 109 15 141/99 (113) 98 Nasal Cannula 5.00 10/09/22 15:00 112 10 143/86 (105) 95 Nasal Cannula 5.00 10/09/22 14:45 109 22 141/83 (102) 98 Nasal Cannula 5.00 10/09/22 14:30 112 15 126/84 (98) 97 Nasal Cannula 5.00 10/09/22 14:16 110 10/09/22 14:15 36.6 154/99 (117) Nasal Cannula 5.00 10/09/22 13:20 36.5 110 22 148/79 99 Nasal Cannula 5.00 5.00 10/09/22 10:38 Nasal Cannula 5.00 10/09/22 10:38 36.5 122 22 152/89 (110) 91 Nasal Cannula 5.00 Height & Weight Height: '" Weight: lbs. oz. kg; 15.48 BMI Method: General Appearance: No Apparent Distress, Anxious, Thin HEENT: PERRL/EOMI Neck: Full Range of Motion Respiratory: Chest Non Tender, No Accessory Muscle Use, Rales, Wheezing Cardiovascular: No Edema, Tachycardia Capillary Refill: Less Than 3 Seconds Extremity: Normal Range of Motion, Other (multiple scabs and ecchymosis all over body) Skin: Ecchymosis Lymphatic: No Adenopathy Results Lab Laboratory Tests 10/09/22 10:40 Assessment/Plan Assessment/Plan 1 KAY CHAVIRA MD Oct 09, 2022 17:45
[2022-10-09] MEDS: RT-ALBUTEROL/IPRATROPIUM 3 ML (DUONEB) VIAL INH SCH ×2 (18:19→22:36)
[2022-10-09] MEDS: DOCUSATE SODIUM 100 MG (COLACE) CAP PO SCH (20:18)
[2022-10-09] MEDS: CEFEPIME INJECTION 1,000 MG in NS (IVPB) 50 ML IV SCH (23:56)
[2022-10-10] VITALS (15 sets, daily range): BP systolic 130–161; BP diastolic 74–99
[2022-10-10] MEDS: RT-ALBUTEROL/IPRATROPIUM 3 ML (DUONEB) VIAL INH SCH ×4 (02:32→14:52)
[2022-10-10 05:25] LABS: ABG BASE EXCESS 7.3 MMOL/L (-2.5-2.5); ABG OXYGEN SATURATION 98 % (94-100); ABG PCO2 44 MMHG (35-45); ABG PH 7.47 (7.37-7.43); ABG PO2 81 MMHG (79-93); ABG TCO2 32.7 MMOL/L (21.0-31.0)
[2022-10-10 05:29] LABS: ALLENS TEST YES-POS; INSPIRED O2 5L; PATIENT TEMP 36.8; VENTILATOR NO
[2022-10-10 05:58] LABS: BASOPHILS % (AUTO) 0 % (0-10); EOSINOPHILS % (AUTO) 0 % (0-10); HEMATOCRIT 30 % (40-54); HEMOGLOBIN 9.6 g/dL (13.3-17.7); LYMPHOCYTES # (AUTO) 0.6 10^3/uL (1.0-4.0); LYMPHOCYTES % (AUTO) 5 % (12-44); MEAN CORPUSCULAR HEMOGLOBIN 29 pg (25-34); MEAN CORPUSCULAR HGB CONC 32 g/dL (32-36); MEAN CORPUSCULAR VOLUME 91 fL (80-99); MEAN PLATELET VOLUME 8.8 fL (9.0-12.2); MONOCYTES # (AUTO) 0.5 10^3/uL (0.0-1.0); MONOCYTES % (AUTO) 4 % (0-12); NEUTROPHILS # (AUTO) 10.6 10^3/uL (1.8-7.8); NEUTROPHILS % (AUTO) 90 % (42-75); PLATELET COUNT 248 10^3/uL (130-400); WHITE BLOOD COUNT 11.7 10^3/uL (4.3-11.0)
[2022-10-10 06:00] LABS: ALBUMIN 2.6 GM/DL (3.2-4.5); POTASSIUM 3.7 MMOL/L (3.6-5.0)
[2022-10-10] MEDS ORDERED: POTASSIUM CL 10MEQ/50ML IVPB 50 ML IV SCH (06:00)
[2022-10-10] MEDS ORDERED: MAGNESIUM 1 GM/100 ML IVPB 100 ML IV SCH (06:00)
[2022-10-10] MEDS ORDERED: KCL 20 MEQ TAB (K-DUR) PO SCH (06:00)
[2022-10-10 06:01] LABS: CALCIUM 8.2 MG/DL (8.5-10.1)
[2022-10-10 06:03] LABS: TOTAL PROTEIN 5.6 GM/DL (6.4-8.2)
[2022-10-10 06:04] LABS: BILIRUBIN,TOTAL 0.3 MG/DL (0.1-1.0)
[2022-10-10 06:06] LABS: CREATININE SERUM 1.81 MG/DL (0.60-1.30); PHOSPHORUS 4.2 MG/DL (2.3-4.7)
[2022-10-10] MEDS: inSUlin ASPART (NovoLOG) 1 UNIT/0.01 ML (CHARGE PER UNIT) SC SCH ×2 (06:09→11:09)
[2022-10-10] MEDS: FUROSEMIDE 40 MG/4 ML INJ (LASIX) IVP SCH ×2 (06:24→08:06)
[2022-10-10] MEDS: DOCUSATE SODIUM 100 MG (COLACE) CAP PO SCH (08:11)
[2022-10-10] MEDS ORDERED: ASPIRIN 81 MG CHEW (CHILDREN'S ASA) PO SCH (09:00)
[2022-10-10] MEDS ORDERED: meTOprolol SUCCINATE 100 MG (TOPROL XL) TAB PO SCH (09:00)
[2022-10-10] MEDS ORDERED: OXC5T PO (11:07)
[2022-10-10] MEDS: CEFEPIME INJECTION 1,000 MG in NS (IVPB) 50 ML IV SCH (11:09)
--- NOTE | 2022-10-10 11:22 | Tele-ICU Progress Note ---
Subjective Date Seen by a Provider: Oct 10, 2022 Time Seen by a Provider: 11:22 Subjective/Events-last exam (Tele-ICU Physician , consultation as per request of PCP Service provided via interactive audio and video telecommunications E-CARE system to a patient admitted to ICU bed in [facility]. Available chart/ vitals / labs / Images reviewed H&P is from ER notes Patient's information available about PMH, Shx, Fhx allergy reviewed inEMR. ROS as per chart and RN report Now in ICU, hemodynamically stable Video assessment done using teleICU camera, rest of exam as per RN Discussed with RN. This patient with end-stage COPD on home oxygen, CHF and severe pulmonary hypertension admitted with acute and chronic respiratory failure now improving with with bronchodilators under diuretic therapy. However patient wanted to go home on hospice. convention services manager discussed with him the options and he agreed. Today he will be going home with hospice service. Sepsis Event Evaluation Height, Weight, BMI Height: '" Weight: lbs. oz. kg; 15.63 BMI Method: Focused Exam Lactate Level 10/09/22 21:30: Lactic Acid Level 2.20*H 10/09/22 23:38: Lactic Acid Level 2.07*H 10/10/22 01:49: Lactic Acid Level 1.60 Exam Exam Patient acknowledged, consented, and participated in this virtual visit which was conducted using real time audio/video Vital Signs Date Time Temp Pulse Resp B/P (MAP) Pulse Ox O2 Delivery O2 Flow Rate FiO2 10/10/22 11:13 94 Nasal Cannula 4.00 10/10/22 10:00 113 159/94 (115) 94 Nasal Cannula 5.00 10/10/22 09:00 110 156/84 (108) 98 Nasal Cannula 5.00 10/10/22 08:28 Nasal Cannula 5.00 10/10/22 08:00 116 21 151/98 (115) 96 Nasal Cannula 5.00 10/10/22 07:46 37.1 10/10/22 07:01 96 Nasal Cannula 4.00 10/10/22 07:00 102 13 157/96 (116) 97 Nasal Cannula 5.00 10/10/22 07:00 105 10/10/22 06:00 105 22 148/84 (105) 96 Nasal Cannula 5.00 10/10/22 05:00 101 31 140/81 (100) 98 Nasal Cannula 5.00 10/10/22 04:00 36.3 Nasal Cannula 5.00 10/10/22 04:00 98 23 130/74 (92) 99 Nasal Cannula 5.00 10/10/22 04:00 96 Nasal Cannula 5.00 10/10/22 03:00 100 33 144/87 (106) 97 Nasal Cannula 5.00 10/10/22 02:33 96 Nasal Cannula 5.00 10/10/22 02:00 98 20 135/89 (104) 97 Nasal Cannula 5.00 10/10/22 01:00 103 14 161/84 (109) 96 Nasal Cannula 5.00 10/10/22 00:40 104 10/10/22 00:00 105 14 146/83 (104) 95 Nasal Cannula 5.00 10/10/22 00:00 36.6 Nasal Cannula 5.00 10/09/22 23:59 97 Nasal Cannula 5.00 10/09/22 23:00 99 25 152/88 (109) 98 Nasal Cannula 5.00 10/09/22 22:38 98 Nasal Cannula 5.00 10/09/22 22:00 107 34 142/115 (124) 90 Nasal Cannula 5.00 10/09/22 21:00 100 12 144/85 (104) 99 Nasal Cannula 5.00 10/09/22 20:00 106 13 140/81 (100) 97 Nasal Cannula 5.00 10/09/22 19:37 36.8 109 19 150/78 (102) 96 Nasal Cannula 5.00 10/09/22 19:24 95 Nasal Cannula 5.00 10/09/22 19:00 112 10/09/22 19:00 112 17 142/79 (100) 95 Nasal Cannula 5.00 10/09/22 18:22 96 Nasal Cannula 5.00 10/09/22 18:00 107 17 143/82 (102) 94 Nasal Cannula 5.00 10/09/22 17:00 118 18 149/96 (113) 95 Nasal Cannula 5.00 10/09/22 16:15 111 15 148/85 (106) 94 Nasal Cannula 5.00 10/09/22 16:00 97 Nasal Cannula 5.00 10/09/22 16:00 110 18 119/103 (108) 97 Nasal Cannula 5.00 10/09/22 15:45 Nasal Cannula 5.00 10/09/22 15:45 112 46 147/96 (113) 96 Nasal Cannula 5.00 10/09/22 15:32 36.6 112 97 10/09/22 15:30 111 59 141/81 (101) 96 Nasal Cannula 5.00 10/09/22 15:15 109 15 141/99 (113) 98 Nasal Cannula 5.00 10/09/22 15:00 112 10 143/86 (105) 95 Nasal Cannula 5.00 10/09/22 14:45 109 22 141/83 (102) 98 Nasal Cannula 5.00 10/09/22 14:30 112 15 126/84 (98) 97 Nasal Cannula 5.00 10/09/22 14:16 110 10/09/22 14:15 36.6 154/99 (117) Nasal Cannula 5.00 10/09/22 13:20 36.5 110 22 148/79 99 Nasal Cannula 5.00 5.00 I & O 10/10/22 07:00 Intake Total 1290 ml Output Total 2150 ml Balance -860 ml Height & Weight Height: '" Weight: lbs. oz. kg; 15.63 BMI Method: General Appearance: No Apparent Distress, Anxious, Thin HEENT: PERRL/EOMI Neck: Full Range of Motion Respiratory: Chest Non Tender, No Accessory Muscle Use, Rales, Wheezing Cardiovascular: No Edema, Tachycardia Capillary Refill: Less Than 3 Seconds Extremity: Normal Range of Motion, Other (multiple scabs and ecchymosis all over body) Skin: Ecchymosis Lymphatic: No Adenopathy Results Lab Laboratory Tests 10/09/22 10:40 10/10/22 04:55 Assessment/Plan Assessment/Plan 1. acute and Chr. respiratory failure improve. 2. COPD exacerbation, end-stage on home oxygen somewhat improved. 3. Severe pulmonary hypertension not reversible. 3. Acute on chronic congestive heart failure on diuretic therapy. Recommendations 1. Continue supplemental oxygen 2. Diuretic therapy per cardiology 3. Oxygen 3 to 5 L nasal cannula. 4. Patient requested to go home on hospice which will be arranged today. Critical care time 15 minutes Critical Care: Critically Ill Patient Time spent with patient (mins): 15 DAREN LE MD Oct 10, 2022 11:22
--- NOTE | 2022-10-10 12:58 | Short Stay Summary-Hospitalist ---
CATARINALELAND 10/10/22 1258: History of Present Illness HPI/Chief Complaint Patient is a 76-year-old male with a history of COPD, CHF, CKD, HTN, and pulmonary HTN who presented to the ED via EMS on 10/09 with chief complaint of chest pain and shortness of breath. The patient was previously brought to the ED on 10/08 via EMS for chest pain and shortness of breath, per EMS his O2 sat was 84% on 2L when they arrived. He was treated with lasix, nebulizers, steroids, and supplemental O2. He was discharged the same day with instructions to increase his home oxygen to 4L. The patient was admitted on 10/09 for an acute exacerbation of COPD and CHF. He was started on supplemental O2, nebulizers, steroids, lasix, and cefepime. The patient was found to have an elevated D-dimer at 1.79, an elevated WBC count of 12.4 which improved to 11.7 today, a BNP of 19,071. Troponin was initially measured at 0.70 which then increased to 2.03. CXR showed mild central pulmonary venous congestion and infiltrates. EKG on admission showed sinus tachycardia with RBBB, and an EKG today revealed sinus tachycardia with occasional PVCs, an anterior AZ, and a probable inferior AZ. An echo from 07/23 showed a LVEF of 40-45% and a PASP of 95-100. His chest pain and SOB improved throughout his stay and today he states he is feeling well and that he feels at his baseline. technology services manager was consulted in order to help with hospice care, and the patient is being discharged this afternoon. Source: patient, RN/MD, RN notes reviewed, old records Exam Limitations: no limitations Date Seen 10/10/22 Time Seen by a Provider: 11:00 Attending Physician Cristhian Osborne MD PCP Admitting Physician: Genevieve Gary DO Attending Physician: Genevieve Gary DO Referring Physician Date of Admission Oct 09, 2022 at 14:06 Home Medications & Allergies Home Medications Reviewed patient Home Medication Reconciliation performed by pharmacy medication reconciliations earth science laboratory technician and/or nursing. Patients Allergies have been reviewed. Allergies Allergies Coded Allergies No Known Drug Allergies (Unverified07/22/22) Past Medical/Social/Family Hx Patient Social History Tobacco Use?: No Smoking Status: Former Smoker Use of E-Cig and/or Vaping dev: No Substance use?: No Alcohol Use?: No Pt stated abuse/neglect: No Immunizations Up To Date Influenza Vaccine Up-to-Date: No; Not Current Current Status Advance Directives: Yes Primary Language: Malaysian Preferred Spoken Language: Malaysian Is interpretation needed?: No Sensory deficits: Hearing impairment Past Medical History COPD HTN Tobacco abuse Review of Systems Constitutional: No chills, No fever EENTM: No ear pain, No blurred vision, No vision loss Respiratory: cough, dyspnea on exertion (Improved), short of breath (Improved) Cardiovascular: chest pain (Improved); No edema, No palpitations Gastrointestinal: No abdominal pain, No constipation, No diarrhea, No nausea, No vomiting Genitourinary: No dysuria, No hematuria Musculoskeletal: No back pain, No muscle weakness Skin: change in color (Multiple areas of ecchymosis on all extremities), lesi ons (multiple small lesions throughout all extremities) Psychiatric/Neurological: Headache; Denies Numbness, Denies Weakness Physical Exam Physical Exam Vital Signs Vital Signs - First Documented Capillary Refill : Less Than 3 Seconds Height, Weight, BMI Height: '" Weight: lbs. oz. kg; 15.63 BMI Method: General Appearance: No Apparent Distress, Chronically ill, Thin HEENT: PERRL/EOMI Neck: Full Range of Motion, Non Tender, Supple Respiratory: Chest Non Tender, No Accessory Muscle Use, Rales, Wheezing Cardiovascular: No Edema, Tachycardia Gastrointestinal: Non Tender, Soft Rectal: Deferred Back: No CVA Tenderness Extremity: Normal Range of Motion, Non Tender, No Pedal Edema, Other (multiple scabs and ecchymosis all over body) Neurologic/Psychiatric: Alert, Oriented x3 Skin: Warm/Dry, Ecchymosis (multiple , diffuse) Lymphatic: No Adenopathy Results Results/Procedures Labs Laboratory Tests 10/09/22 10:40 10/10/22 04:55 Patient resulted labs reviewed. Short Stay Diagnosis Discharge Diagnosis-Short Stay Admission Diagnosis Acute exacerbation of COPD and CHF Final Discharge Diagnosis Acute exacerbation of COPD and CHF Conclusion Plan Acute on chronic respiratory failure COPD exacerbation End stage COPD CHF exacerbation HTN Severe Pulmonary HTN CKD Pneumonia - community acquired Elevated troponin Pulmonary edema Elevated D-dimer Cardiology consulted Antibiotics Lasix Aspirin Nebulizers Supplemental O2, 4L at home Discharge with hospice - technology services manager consulted Clinical Quality Measures AMI/AHF: ASA po Prior to arrival: Yes (81mg Aspirin) GENEVIEVE GARY DO 10/11/22 0600: History of Present Illness Source: patient, RN/MD Past Medical/Social/Family Hx Patient Social History Marrital Status: single Employed/Student: retired Past Medical History CHF COPD Chronic kidney disease Review of Systems Constitutional: see HPI Physical Exam Physical Exam General Appearance: Anxious, Chronically ill, Thin Respiratory: No Accessory Muscle Use, No Respiratory Distress, Rales, Wheezing Cardiovascular: Regular Rate, Rhythm Short Stay Diagnosis Discharge Diagnosis-Short Stay Admission Diagnosis End-stage COPD and CHF Discharge home on hospice Updated Dr. Osborne and Dr. Ojeda Final Discharge Diagnosis End-stage COPD and CHF Discharge home on hospice Updated Dr. Osborne and Dr. Ojeda Conclusion Plan Discharged home on hospice Supervisory-Addendum Brief Verification & Attestation Participated in pt care: history, MDM, physical Personally performed: exam, history, MDM, supervision of care Care discussed with: Medical Student Procedures: n/a Results interpretation: Verified all documentation Verification and Attestation of Medical Student E/M Service A medical student performed and documented this service in my presence. I reviewed and verified all information documented by the medical student and made modifications to such information, when appropriate. I personally performed the physical exam and medical decision making. Genevieve Gary, Oct 11, 2022,05:59 LELAND ELMORE Oct 10, 2022 12:58 GENEVIEVE GARY DO Oct 11, 2022 06:00
[2022-10-10] MEDS ORDERED: ENOXAPARIN 60 MG/0.6 ML (LOVENOX) SYR SC SCH (13:00)
== END 2022-10-10 15:20 | disposition hospice, home (50) | DRG 871 ==
LOC: EDUNIT# 10:33 → ER FS 10:34 → ICU 14:06
PROVIDERS: ADMIT Internal Medicine; ATTEND Internal Medicine
DX: A41.9 Sepsis, unspecified organism (principal); I21.A1 Myocardial infarction type 2; I50.43 Acute on chronic combined systolic (congestive) and diastolic (congestive) heart failure; J18.9 Pneumonia, unspecified organism; J96.01 Acute respiratory failure with hypoxia; I13.0 Hypertensive heart and chronic kidney disease with heart failure and stage 1 through stage 4 chronic kidney disease, or unspecified chronic kidney disease; N17.9 Acute kidney failure, unspecified; J44.0 Chronic obstructive pulmonary disease with (acute) lower respiratory infection; J44.1 Chronic obstructive pulmonary disease with (acute) exacerbation; Z66 Do not resuscitate; N18.30 Chronic kidney disease, stage 3 unspecified; Z87.891 Personal history of nicotine dependence; I27.20 Pulmonary hypertension, unspecified; Z79.82 Long term (current) use of aspirin; Z79.899 Other long term (current) drug therapy
CPT/HCPCS: 36415; 71045; 80053; 80061; 82805; 82947; 83605; 83735; 83880; 84100; 84484; 85007; 85025; 85027; 85379; 85610; 85730; 87040; 93005; 93306; 94640